=== PATIENT | female | born 2005 | race Caucasian/White ===

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

== ENCOUNTER → 2023-04-12 | Emergency (ER) | payer OTHER ==
--- OUTSIDE RECORDS SUMMARY | 2023-04-12 10:15 | XMS REPORT | Continuity of Care Document ---
Author Name Unknown Address [address] [facility] [address] [place] [address] [facility] thconnect Address [address] [facility]. [address] [place] [address] Care Team Providers Care Quill Winder Name Role Phone KAITLYNN BOX Primary Care Physician Unavaila ble Saldivar Marcy Attending Clinician Unavailable ZULMA ZARAGOZA Attending Clinician Unavailable ZULMA ZARAGOZA Attending Clinician Unavailable MARTHA LATIF Attending Clinician Unavailable Martha Latif MD Attending Clinician [phone] Doctor Unassigned, [place] Attending Clinician U navailable 2, [facility] Lab Attending Clinician Unavailable Zulma Zaragoza DO Attending Clinician [phone] Lauro Nola DUNN Attending Clinician [phone] Nurse, [facility] Attending Clinician Un available Juan Parrish MD Attending Clinician + Ultrasound, [facility] Attending Clinician Unavaila JUAN Rai Attending Clinician Unav ailable KUSUM DUNBAR Attending Clinician Unavailable Kusmu Dunbar MD Attending Clinician [phone] Nimesh Oliva MD Attending Clinician [phone] NIMESH OLIVA Attending Clinician Unavailable NIMESH OLIVA Attending Clinician Unavailable TRISTIN VALENTE Attending Clinician UnavailTristin Contreras MD Attending Clinician [phone] TULIO FERGUSON Attending Clinician Unavaila ayaan Ferguson ACNP, Tulio Attending Clinician + [phone] Watson Hull Attending Clinician UnavailBrittany Min Attending Clinician [phone] ARLINE HARRIS Attending Clinician Unavaila KIKI Culver Attending Clinician Unavailab Kiki Enrique DO Attending Clinician [phone] SWETHA ROD Attending Clinician Unavailshalonda Box CAREER SERVICES ASSISTANT, Kaitlynn Attending Clinician [phone] KAITLYNN BOX Attending Clinician Unavailable Esmer Beltran PA-C Attending Clinician [phone] Lauri CAREER SERVICES ASSISTANT, Lety Attending Clinician [phone] LETY NICHOLS Attending Clinician Unavailable Filiberto Neri DO Attending Clinician [phone] Kayla Park MD Attending Clinician + [phone] Provider, [facility] Attending Clinician Un available Ilan Fuller Attending Clinician [phone] ILAN VILLARREAL Attending Clinician Unavailable Lab, Adc Fam Pob I Attending Clinician Unavailab Radha Nagy Attending Clinician [phone] RADHA COPELAND Attending Clinician Unavailable MARTHA ALTIF Admitting Clinician Unavailable Marcy Saldivar Admitting Clinician Unavailable KUSUM DUNBAR Admitting Clinician Unavailable Martha Latif MD Admitting Clinician [phone] Kusum Dunbar MD Admitting Clinician [phone] Watson Hull Admitting Clinician UnavailKayla Vail MD Admitting Clinician + [phone] Payers Payer Name Policy Type Policy Number Effective Date Expirati on Date Source [facility] [id number] 2023 00:00:00 [facility] [id number] 2020 00:00:00 Problems Condition Name Condition Details Condition Category Status Onset Date Resolution Date Last Treatment Date Treating Clinician Comments Source Chronic hypertensi on during , antepartum Chronic hypertensi on during , antepartum Disease Active 2022-03 2-19 00:00: 00 [facility] 33 weeks gestation of 33 weeks gestation of Disease Active 2022-03 1-16 00:00: 00 [facility] Flu Flu Disease Active 2022-0316 00:00: 00 [facility] 35 weeks gestation of 35 weeks gestation of Disease Active 2022-03 00:00: 00 [facility] 38 weeks gestation of 38 weeks gestation of Disease Active 2022-03 00:00: 00 [facility] Anemia of mother in , antepartum Anemia of mother in , antepartum Disease Active 2022-03 1-09 00:00: 00 [facility] Low-lying placenta without hemorrhage Low-lying placenta without hemorrhage Disease Active 2022-03 0-06 00:00: 00 [facility] Elevated BP without diagnosis of hypertensi on Elevated BP without diagnosis of hypertensi on Disease Active 8-10 00:00: 00 [facility] Chronic hypertensi on in Chronic hypertensi on in Disease Active 8-10 00:00: 00 [facility] Genital herpes complicati ng Genital herpes complicati ng Disease Active 616 00:00: 00 [facility] High-risk in third trimester High-risk in third trimester Disease Active 16 00:00: 00 [facility] History of herpes labialis History of herpes labialis Disease Active 616 00:00: 00 [facility] Nausea and vomiting during prior to 22 weeks gestation Nausea and vomiting during prior to 22 weeks gestation Disease Active 616 00:00: 00 [facility] Body mass index (BMI) of 50-59.9 in adult Body mass index (BMI) of 50-59.9 in adult Disease Active 16 00:00: 00 [facility] Obesity in Obesity in Disease Active 08-29 00:00: 00 [facility] Morbid obesity with body mass index of 50 or higher Morbid obesity with body mass index of 50 or higher Disease Active 2021-03 00:00: 00 [facility] BMI, pediatric > 99% for age BMI, pediatric > 99% for age Disease Active 2020-03 00:00: 00 [facility] Weight gain Weight gain Disease Active 2020-03 00:00: 00 [facility] Allergies, Adverse Reactions, Alerts Allergy Name Allergy Type Status Severity Reaction(s) Onset Date Inactive Date Treating Clinician Comments Source No Known Allergie s DA Active U 2021-03 00:00: 00 [facility] No Known Allergie s DA Active U 2021-03 00:00: 00 [facility] NO KNOWN ALLERGIE S Drug Class Active [facility] Social History Social Habit Start Date Stop Date Quantity Comments Source ASSERTION 2022-06-24 00:00:[address] [facility] Gender identity [facility] Alcohol intake 2023-03-12 00:00:00 2023-03-12 00:00:00 Lifetime non-drinker (finding) [facility] History of Social function 2023-02-10 00:00:00 2023-02-10 00:00:[address] [facility] Exposure to SARS-CoV-2 (event) 2022-08-18 00:00:00 2022-08-28 13:21:[address] [facility] Tobacco use and exposure 2022-08-28 00:00:00 2022-08-28 00:00:00 Smokeless tobacco non-user [facility] Sex Assigned At 2003 00:00:00 2003 00:00:[address] [facility] Smoking Status Start Date Stop Date Source Never smoked tobacco [facility] Medications Ordered Medication Name Filled Medication Name Start Date Stop Date Current Medication? Ordering Clinician Indication Dosage Frequency Signature (SIG) Comments Components Source ibuprofen (IBU) tablet 600 mg 2022-03 06:00: 00 Yes 600mg 600 mg, Oral, Q6H ABX, First dose on Thu03/05/23 at 0000, Until Discontinu ed, Routine [facility] ibuprofen (IBU) tablet 600 mg 2022-03 06:00: 00 Yes 600mg 600 mg, Oral, Q6H ABX, First dose on Thu03/05/23 at 0000, Until Discontinu ed, Routine [facility] enoxaparin (LOVENOX) injection 40 mg 2022-03 16:00: 00 Yes 40mg 40 mg, Subcutaneo us, Q24H, First dose on Thu03/04/23 at 1000, Until Discontinu ed, Routine [facility] enoxaparin (LOVENOX) injection 40 mg 2022-03 16:00: 00 Yes 40mg 40 mg, Subcutaneo us, Q24H, First dose on Thu03/04/23 at 1000, Until Discontinu ed, Routine [facility] PNV no.95/shara us fum/folic ac ( ORAL) 2022-03 09:08: 03 03-04 00:00 :00 No Take by mouth. [facility] PNV no.95/shara us fum/folic ac ( ORAL) 2022-03 09:08: 03 03-04 00:00 :00 No Take by mouth. [facility] ketorolac (TORADOL) injection 30 mg 2022-03 06:00: 00 03-05 05:59 :00 Yes 30mg 30 mg, Slow IV Push, Q6H ABX, 4 doses, First dose on Thu03/04/23 at 0000, Last dose on Thu03/04/23 at 1800, Routine [facility] ketorolac (TORADOL) injection 30 mg 2022-03 06:00: 00 03-05 05:59 :00 Yes 30mg 30 mg, Slow IV Push, Q6H ABX, 4 doses, First dose on 12/20/23 at 0000, Last dose on Thu03/04/23 at 1800, Routine [facility] acetaminoph en 325 mg tablet 2022-03 00:00: 00 Yes [id number] 650mg Take 2 tablets by mouth every 6 (six) hours as needed for Pain (scale 1-3) or Pain (scale 4-6). [facility] vitamin w/FA tablet 2022-03 00:00: 00 Yes [id number] 1{tbl} Take 1 tablet by mouth in the morning. [facility] docusate 100 mg capsule 2022-03 00:00: 00 Yes [id number] 200mg Take 2 capsules by mouth once daily as needed for Constipati on. [facility] ferrous sulfate 325 mg (65 mg iron) tablet 2022-03 00:00: 00 Yes [id number] 325mg Take 1 tablet by mouth in the morning and 1 tablet in the evening. [facility] ibuprofen 600 mg tablet 2022-03 00:00: 00 Yes [id number] 600mg Take 1 tablet by mouth every 6 (six) hours as needed (Pain). Take with food or milk. [facility] acetaminoph en (TYLENOL) tablet 650 mg 2022-03 00:00: 00 Yes 650mg 650 mg, Oral, Q6H ABX, First dose on Thu03/03/23 at 1800, Until Discontinu ed, Routine [facility] acetaminoph en 325 mg tablet 2022-03 00:00: 00 Yes [id number] 650mg Take 2 tablets by mouth every 6 (six) hours as needed for Pain (scale 1-3) or Pain (scale 4-6). [facility] vitamin w/FA tablet 2022-03 00:00: 00 Yes [id number] 1{tbl} Take 1 tablet by mouth in the morning. [facility] docusate 100 mg capsule 2022-03 00:00: 00 Yes [id number] 200mg Take 2 capsules by mouth once daily as needed for Constipati on. [facility] ferrous sulfate 325 mg (65 mg iron) tablet 2022-03 00:00: 00 Yes [id number] 325mg Take 1 tablet by mouth in the morning and 1 tablet in the evening. [facility] ibuprofen 600 mg tablet 2022-03 00:00: 00 Yes [id number] 600mg Take 1 tablet by mouth every 6 (six) hours as needed (Pain). Take with food or milk. [facility] acetaminoph en (TYLENOL) tablet 650 mg 2022-03 00:00: 00 Yes 650mg 650 mg, Oral, Q6H ABX, First dose on Thu03/03/23 at 1800, Until Discontinu ed, Routine [facility] acetaminoph en 325 mg tablet 2022-03 00:00: 00 Yes [id number] 650mg Take 2 tablets by mouth every 6 (six) hours as needed for Pain (scale 1-3) or Pain (scale 4-6). [facility] vitamin w/FA tablet 2022-03 00:00: 00 Yes [id number] 1{tbl} Take 1 tablet by mouth in the morning. [facility] docusate 100 mg capsule 2022-03 00:00: 00 Yes [id number] 200mg Take 2 capsules by mouth once daily as needed for Constipati on. [facility] ferrous sulfate 325 mg (65 mg iron) tablet 2022-03 00:00: 00 Yes [id number] 325mg Take 1 tablet by mouth in the morning and 1 tablet in the evening. [facility] ibuprofen 600 mg tablet 2022-03 00:00: 00 Yes [id number] 600mg Take 1 tablet by mouth every 6 (six) hours as needed (Pain). Take with food or milk. [facility] acetaminoph en 325 mg tablet 2022-03 00:00: 00 Yes [id number] 650mg Take 2 tablets by mouth every 6 (six) hours as needed for Pain (scale 1-3) or Pain (scale 4-6). [facility] vitamin w/FA tablet 2022-03 00:00: 00 Yes [id number] 1{tbl} Take 1 tablet by mouth in the morning. [facility] docusate 100 mg capsule 2022-03 00:00: 00 Yes [id number] 200mg Take 2 capsules by mouth once daily as needed for Constipati on. [facility] ferrous sulfate 325 mg (65 mg iron) tablet 2022-03 00:00: 00 Yes [id number] 325mg Take 1 tablet by mouth in the morning and 1 tablet in the evening. [facility] ibuprofen 600 mg tablet 2022-03 00:00: 00 Yes [id number] 600mg Take 1 tablet by mouth every 6 (six) hours as needed (Pain). Take with food or milk. [facility] acetaminoph en 325 mg tablet 2022-03 00:00: 00 Yes [id number] 650mg Take 2 tablets by mouth every 6 (six) hours as needed for Pain (scale 1-3) or Pain (scale 4-6). [facility] vitamin w/FA tablet 2022-03 00:00: 00 Yes [id number] 1{tbl} Take 1 tablet by mouth in the morning. [facility] docusate 100 mg capsule 2022-03 00:00: 00 Yes [id number] 200mg Take 2 capsules by mouth once daily as needed for Constipati on. [facility] ferrous sulfate 325 mg (65 mg iron) tablet 2022-03 00:00: 00 Yes [id number] 325mg Take 1 tablet by mouth in the morning and 1 tablet in the evening. [facility] ibuprofen 600 mg tablet 2022-03 00:00: 00 Yes [id number] 600mg Take 1 tablet by mouth every 6 (six) hours as needed (Pain). Take with food or milk. [facility] enoxaparin 40 mg/0.4 mL injection 2022-03 00:00: 00 04-02 05:59 :00 Yes [id number] 40mg inject 0.4 mL under the skin every 24 (twenty-fo ur) hours for 28 days. [facility] enoxaparin 40 mg/0.4 mL injection 2022-03 2-20 00:00: 00 04-02 05:59 :00 Yes [id number] 40mg inject 0.4 mL under the skin every 24 (twenty-fo ur) hours for 28 days. [facility] enoxaparin 40 mg/0.4 mL injection 2022-03 2 00:00: 00 04-02 05:59 :00 Yes [id number] 40mg inject 0.4 mL under the skin every 24 (twenty-fo ur) hours for 28 days. [facility] enoxaparin 40 mg/0.4 mL injection 2022-03 00:00: 00 04-02 05:59 :00 Yes [id number] 40mg inject 0.4 mL under the skin every 24 (twenty-fo ur) hours for 28 days. [facility] enoxaparin 40 mg/0.4 mL injection 2022-03 00:00: 00 04-02 05:59 :00 Yes [id number] 40mg inject 0.4 mL under the skin every 24 (twenty-fo ur) hours for 28 days. [facility] HYDROcodone -acetaminop hen 5-325 mg tablet 2022-03 00:00: 00 03-12 05:59 :00 Yes [id number] 1{tbl} Take 1 tablet by mouth every 6 (six) hours as needed for Pain (scale 7-10) (Alternate with Ibuprofen) for up to 7 days. Indication s: acute pain [facility] HYDROcodone -acetaminop hen 5-325 mg tablet 2022-03 2-20 00:00: 00 03-12 05:59 :00 Yes [id number] 1{tbl} Take 1 tablet by mouth every 6 (six) hours as needed for Pain (scale 7-10) (Alternate with Ibuprofen) for up to 7 days. Indication s: acute pain [facility] HYDROcodone -acetaminop hen 5-325 mg tablet 2022-03 2-20 00:00: 00 03-12 05:59 :00 Yes [id number] 1{tbl} Take 1 tablet by mouth every 6 (six) hours as needed for Pain (scale 7-10) (Alternate with Ibuprofen) for up to 7 days. Indication s: acute pain [facility] gabapentin 300 mg capsule 2022-03 00:00: 00 03-10 05:59 :00 Yes [id number] 300mg Take 1 capsule by mouth in the morning and 1 capsule at noon and 1 capsule in the evening. Do all this for 5 days. [facility] gabapentin 300 mg capsule 2022-03 00:00: 00 03-10 05:59 :00 Yes [id number] 300mg Take 1 capsule by mouth in the morning and 1 capsule at noon and 1 capsule in the evening. Do all this for 5 days. [facility] gabapentin 300 mg capsule 2022-03 00:00: 00 03-10 05:59 :00 Yes [id number] 300mg Take 1 capsule by mouth in the morning and 1 capsule at noon and 1 capsule in the evening. Do all this for 5 days. [facility] gabapentin (NEURONTIN) capsule 300 mg 2022-03 20:00: 00 Yes 300mg 300 mg, Oral, TID, First dose on Thu03/03/23 at 1400, Until Discontinu ed, Routine [facility] gabapentin (NEURONTIN) capsule 300 mg 2022-03 20:00: 00 Yes 300mg 300 mg, Oral, TID, First dose on Thu03/03/23 at 1400, Until Discontinu ed, Routine [facility] lactated ringers IV infusion 1,000 mL 2022-03 16:00: 00 03-03 16:00 :25 No 1000mL at 125 mL/hr, 1,000 mL, IV Infusion, ONCE, 1 dose, On Thu03/03/23 at 1000, Routine [facility] HYDROcodone -acetaminop hen (NORCO 5) 5-325 mg tablet 1 tablet 2022-03 15:47: 18 Yes 1{tbl} 1 tablet, Oral, Q6HPRN, Starting on Thu03/03/23 at 0947, Until Discontinu ed, Routine, Pain (scale 7-10), Alternate with Ibuprofen [facility] diphenhydrA MINE (BENADRYL) injection 25 mg 2022-03 15:47: 18 Yes 25mg 25 mg, Slow IV Push, Q6HPRN, Starting on Thu03/03/23 at 0947, Until Discontinu ed, Routine, Itching [facility] diphenhydrA MINE (BENADRYL) tablet 25 mg 2022-03 15:47: 18 Yes 25mg 25 mg, Oral, Q6HPRN, Starting on Thu03/03/23 at 0947, Until Discontinu ed, Routine, Sleep, Itching [facility] ondansetron (ZOFRAN (PF)) injection 4 mg 2022-03 15:47: 18 Yes 4mg 4 mg, Slow IV Push, Q8HPRN, Starting on Thu03/03/23 at 0947, Until Discontinu ed, Routine, Nausea and Vomiting (N/V) [facility] bisacodyL (DULCOLAX) suppository 10 mg 2022-03 15:47: 18 Yes 10mg 10 mg, Rectal, QDAILYPRN, Starting on Thu03/03/23 at 0947, Until Discontinu ed, Routine, Constipati on [facility] simethicone (GAS RELIEF (SIMETHICON E)) chewable tablet 160 mg 2022-03 15:47: 18 Yes 160mg 160 mg, Oral, PC+HSPRN, Starting on Thu03/03/23 at 0947, Until Discontinu ed, Routine, Gas [facility] docusate (COLACE) capsule 200 mg 2022-03 15:47: 18 Yes 200mg 200 mg, Oral, QDAILYPRN, Starting on Thu03/03/23 at 0947, Until Discontinu ed, Routine, Constipati on [facility] magnesium hydroxide (MILK OF MAGNESIA) 400 mg/5 mL suspension 30 mL 2022-03 15:47: 18 Yes 30mL 30 mL, Oral, QDAILYPRN, Starting on Thu03/03/23 at 0947, Until Discontinu ed, Routine, Constipati on [facility] lactated ringers IV infusion 1,000 mL 2022-03 15:47: 18 Yes 1000mL at 125 mL/hr, 1,000 mL, IV Infusion, PRN, 1 dose, Starting on Thu03/03/23 at 0947, Until Discontinu ed, Routine [facility] albuterol (VENTOLIN) inhaler 2 Puff 2022-03 15:47: 18 Yes 2{puff} 2 Puff, Inhalation , Q4HPRN, Starting on Thu03/03/23 at 0947, Until Discontinu ed, Routine, Wheezing, Shortness of Breath [facility] HYDROcodone -acetaminop hen (NORCO 5) 5-325 mg tablet 1 tablet 2022-03 15:47: 18 Yes 1{tbl} 1 tablet, Oral, Q6HPRN, Starting on Thu03/03/23 at 0947, Until Discontinu ed, Routine, Pain (scale 7-10), Alternate with Ibuprofen [facility] diphenhydrA MINE (BENADRYL) injection 25 mg 2022-03 15:47: 18 Yes 25mg 25 mg, Slow IV Push, Q6HPRN, Starting on Thu03/03/23 at 0947, Until Discontinu ed, Routine, Itching [facility] diphenhydrA MINE (BENADRYL) tablet 25 mg 2022-03 15:47: 18 Yes 25mg 25 mg, Oral, Q6HPRN, Starting on Thu03/03/23 at 0947, Until Discontinu ed, Routine, Sleep, Itching [facility] ondansetron (ZOFRAN (PF)) injection 4 mg 2022-03 15:47: 18 Yes 4mg 4 mg, Slow IV Push, Q8HPRN, Starting on Thu03/03/23 at 0947, Until Discontinu ed, Routine, Nausea and Vomiting (N/V) [facility] bisacodyL (DULCOLAX) suppository 10 mg 2022-03 15:47: 18 Yes 10mg 10 mg, Rectal, QDAILYPRN, Starting on Thu03/03/23 at 0947, Until Discontinu ed, Routine, Constipati on [facility] simethicone (GAS RELIEF (SIMETHICON E)) chewable tablet 160 mg 2022-03 15:47: 18 Yes 160mg 160 mg, Oral, PC+HSPRN, Starting on Thu03/03/23 at 0947, Until Discontinu ed, Routine, Gas [facility] docusate (COLACE) capsule 200 mg 2022-03 15:47: 18 Yes 200mg 200 mg, Oral, QDAILYPRN, Starting on Thu03/03/23 at 0947, Until Discontinu ed, Routine, Constipati on [facility] magnesium hydroxide (MILK OF MAGNESIA) 400 mg/5 mL suspension 30 mL 2022-03 15:47: 18 Yes 30mL 30 mL, Oral, QDAILYPRN, Starting on Thu03/03/23 at 0947, Until Discontinu ed, Routine, Constipati on [facility] lactated ringers IV infusion 1,000 mL 2022-03 15:47: 18 Yes 1000mL at 125 mL/hr, 1,000 mL, IV Infusion, PRN, 1 dose, Starting on Thu03/03/23 at 0947, Until Discontinu ed, Routine [facility] albuterol (VENTOLIN) inhaler 2 Puff 2022-03 15:47: 18 Yes 2{puff} 2 Puff, Inhalation , Q4HPRN, Starting on Thu03/03/23 at 0947, Until Discontinu ed, Routine, Wheezing, Shortness of Breath [facility] mupirocin (BACTROBAN OINT) 2 % skin ointment 2022-03 15:40: 00 Yes Intra-op [facility] mupirocin (BACTROBAN OINT) 2 % skin ointment 2022-03 15:40: 00 Yes Intra-op [facility] sodium chloride 0.9 % irrigation solution 2022-03 15:06: 00 Yes PRN, Starting on Thu03/03/23 at 0906, Until Discontinu ed, Intra-op [facility] sodium chloride 0.9 % irrigation solution 2022-03 15:06: 00 Yes PRN, Starting on Thu03/03/23 at 0906, Until Discontinu ed, Intra-op [facility] ondansetron (ZOFRAN (PF)) injection 4 mg 2022-03 15:00: 00 03-03 15:49 :00 No 4mg 4 mg, Slow IV Push, ONCE, 1 dose, On Thu03/03/23 at 0900, Routine [facility] naloxone (NARCAN) injection 0.4 mg 2022-03 14:52: 54 03-05 14:51 :54 Yes .4mg 0.4 mg, Slow IV Push, PRN - SEE INSTRUCTIO NS, Starting on Thu03/03/23 at 0852, Until Thu03/05/23 at 0851, Routine, Sedation/R espiratory Depression , Analagesia Recovery [facility] naloxone (NARCAN) injection 0.4 mg 2022-03 14:52: 54 03-05 14:51 :54 Yes .4mg 0.4 mg, Slow IV Push, PRN - SEE INSTRUCTIO NS, Starting on Thu03/03/23 at 0852, Until Thu03/05/23 at 0851, Routine, Sedation/R espiratory Depression , [facility] ceFAZolin in 0.9% sod chloride 3 gram/100 mL PgBk 3 g 2022-03 11:07: 36 03-03 13:18 :00 No 3000mg 3 g (3,000 mg), IV Piggyback, O.R. HOLDING ONCE, 1 dose, Starting on Thu03/03/23 at 0507, Until Thu03/04/23 at 2359, 100 mL
Reas on for Anti-Infec tive: Surgical Prophylaxi s
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
Duration of therapy: within 24 hours of surgery [facility] sodium citrate-cit ky acid (BICITRA) 500-334 mg/5 mL solution 30 mL 2022-03 11:07: 36 03-03 13:16 :00 No 30mL 30 mL, Oral, PRE-PROCED URE ONCE, 1 dose, Starting on Thu03/03/23 at 0507, Until Discontinu ed, Routine, Surgery/Pr ocedure [facility] lactated ringers IV infusion 500 mL 2022-03 11:07: 36 03-03 15:47 :24 No 500mL at 999 mL/hr, 500 mL, IV Infusion, PRN - SEE INSTRUCTIO NS, Starting on Thu03/03/23 at 0507, Until Thu03/03/23 at 0947, Routine [facility] PNV no.95/shara us fum/folic ac ( ORAL) 2022-03 15:41: 41 Yes Take by mouth. [facility] PNV no.95/shara us fum/folic ac ( ORAL) 2022-03 15:41: 41 Yes Take by mouth. [facility] albuterol (PROAIR HFA) 90 mcg/actuati on inhaler 2022-03 00:00: 00 Yes 2{puff} Inhale 2 Puffs every 4 (four) hours as needed for Wheezing or Shortness of Breath. [facility] albuterol (PROAIR HFA) 90 mcg/actuati on inhaler 2022-03 00:00: 00 Yes 2{puff} Inhale 2 Puffs every 4 (four) hours as needed for Wheezing or Shortness of Breath. [facility] albuterol (PROAIR HFA) 90 mcg/actuati on inhaler 2022-03 00:00: 00 Yes 2{puff} Inhale 2 Puffs every 4 (four) hours as needed for Wheezing or Shortness of Breath. [facility] albuterol (PROAIR HFA) 90 mcg/actuati on inhaler 2022-03 00:00: 00 Yes 2{puff} Inhale 2 Puffs every 4 (four) hours as needed for Wheezing or Shortness of Breath. [facility] albuterol (PROAIR HFA) 90 mcg/actuati on inhaler 2022-03 00:00: 00 Yes 2{puff} Inhale 2 Puffs every 4 (four) hours as needed for Wheezing or Shortness of Breath. [facility] albuterol (PROAIR HFA) 90 mcg/actuati on inhaler 2022-03 00:00: 00 Yes 2{puff} Inhale 2 Puffs every 4 (four) hours as needed for Wheezing or Shortness of Breath. [facility] albuterol (PROAIR HFA) 90 mcg/actuati on inhaler 2022-03 00:00: 00 Yes 2{puff} Inhale 2 Puffs every 4 (four) hours as needed for Wheezing or Shortness of Breath. [facility] albuterol (PROAIR HFA) 90 mcg/actuati on inhaler 2022-03 00:00: 00 Yes 2{puff} Inhale 2 Puffs every 4 (four) hours as needed for Wheezing or Shortness of Breath. [facility] PNV no.95/shara us fum/folic ac ( ORAL) 2022-03 18:13: 52 Yes Take by mouth. [facility] PNV no.95/shara us fum/folic ac ( ORAL) 2022-03 18:13: 52 Yes Take by mouth. [facility] PNV no.95/shara us fum/folic ac ( ORAL) 2022-03 16:09: 57 Yes Take by mouth. [facility] fluticasone propionate (FLOVENT HFA) 110 mcg/actuati on inhaler 2022-03 00:00: 00 Yes [id number] 2{puff} Inhale 2 Puffs every 12 (twelve) hours. [facility] fluticasone propionate (FLOVENT HFA) 110 mcg/actuati on inhaler 2022-03 00:00: 00 Yes [id number] 2{puff} Inhale 2 Puffs every 12 (twelve) hours. [facility]FLOVENT HFA[facility] 110 mcg/actuati on inhaler 2022-03 00:00: 00 Yes [id number] 2{puff} Inhale 2 Puffs every 12 (twelve) hours. [facility] nystatin 100,000 unit/gram powder 2022-03 00:00: 00 Yes [id number] Apply to area(s) 2 (two) times daily. [facility] (FLOVENT HFA) 110 mcg/actuati on inhaler 2022-03 00:00: 00 Yes [id number] 2{puff} Inhale 2 Puffs every 12 (twelve) hours. [facility] nystatin 100,000 unit/gram powder 2022-03 00:00: 00 Yes [id number] Apply to area(s) 2 (two) times daily. [facility] fluticasone propionate (FLOVENT HFA) 110 mcg/actuati on inhaler 2022-03 00:00: 00 Yes [id number] 2{puff} Inhale 2 Puffs every 12 (twelve) hours. [facility] nystatin 100,000 unit/gram powder 2022-03 00:00: 00 Yes [id number] Apply to area(s) 2 (two) times daily. [facility] fluticasone propionate (FLOVENT HFA) 110 mcg/actuati on inhaler 2022-03 00:00: 00 Yes [id number] 2{puff} Inhale 2 Puffs every 12 (twelve) hours. [facility] nystatin 100,000 unit/gram powder 2022-03 00:00: 00 Yes [id number] Apply to area(s) 2 (two) times daily. [facility] fluticasone propionate (FLOVENT HFA) 110 mcg/actuati on inhaler 2022-03 00:00: 00 Yes [id number] 2{puff} Inhale 2 Puffs every 12 (twelve) hours. [facility] nystatin 100,000 unit/gram powder 2022-03 00:00: 00 Yes [id number] Apply to area(s) 2 (two) times daily. [facility] fluticasone propionate (FLOVENT HFA) 110 mcg/actuati on inhaler 2022-03 00:00: 00 Yes [id number] 2{puff} Inhale 2 Puffs every 12 (twelve) hours. [facility] nystatin 100,000 unit/gram powder 2022-03 00:00: 00 Yes [id number] Apply to area(s) 2 (two) times daily. [facility] nystatin 100,000 unit/gram powder 2022-03 00:00: 00 Yes [id number] Apply to area(s) 2 (two) times daily. [facility] nystatin 100,000 unit/gram powder 2022-03 00:00: 00 Yes [id number] Apply to area(s) 2 (two) times daily. [facility] nystatin 100,000 unit/gram powder 2022-03 00:00: 00 Yes [id number] Apply to area(s) 2 (two) times daily. [facility] nystatin 100,000 unit/gram powder 2022-03 00:00: 00 Yes [id number] Apply to area(s) 2 (two) times daily. [facility] nystatin 100,000 unit/gram powder 2022-03 00:00: 00 Yes [id number] Apply to area(s) 2 (two) times daily. [facility] nystatin 100,000 unit/gram powder 2022-03 00:00: 00 Yes [id number] Apply to area(s) 2 (two) times daily. [facility] nystatin 100,000 unit/gram powder 2022-03 00:00: 00 Yes [id number] Apply to area(s) 2 (two) times daily. [facility] acyclovir 400 mg tablet 2022-03 00:00: 00 03-13 05:59 :00 Yes [id number] 400mg Take 1 tablet by mouth in the morning and 1 tablet at noon and 1 tablet in the evening. Do all this for 30 days. [facility] acyclovir 400 mg tablet 2022-03 00:00: 00 03-13 05:59 :00 Yes [id number] 400mg Take 1 tablet by mouth in the morning and 1 tablet at noon and 1 tablet in the evening. Do all this for 30 days. [facility] acyclovir 400 mg tablet 2022-03 00:00: 00 03-13 05:59 :00 Yes [id number] 400mg Take 1 tablet by mouth in the morning and 1 tablet at noon and 1 tablet in the evening. Do all this for 30 days. [facility] acyclovir 400 mg tablet 2022-03 00:00: 00 03-13 05:59 :00 Yes [id number] 400mg Take 1 tablet by mouth in the morning and 1 tablet at noon and 1 tablet in the evening. Do all this for 30 days. [facility] acyclovir 400 mg tablet 2022-03 00:00: 00 03-13 05:59 :00 Yes [id number] 400mg Take 1 tablet by mouth in the morning and 1 tablet at noon and 1 tablet in the evening. Do all this for 30 days. [facility] acyclovir 400 mg tablet 2022-03 00:00: 00 03-13 05:59 :00 Yes [id number] 400mg Take 1 tablet by mouth in the morning and 1 tablet at noon and 1 tablet in the evening. Do all this for 30 days. [facility] acyclovir 400 mg tablet 2022-03 00:00: 00 03-13 05:59 :00 Yes [id number] 400mg Take 1 tablet by mouth in the morning and 1 tablet at noon and 1 tablet in the evening. Do all this for 30 days. [facility] acyclovir 400 mg tablet 2022-03 00:00: 00 03-13 05:59 :00 Yes [id number] 400mg Take 1 tablet by mouth in the morning and 1 tablet at noon and 1 tablet in the evening. Do all this for 30 days. [facility] acyclovir 400 mg tablet 2022-03 00:00: 00 03-04 00:00 :00 No [id number] 400mg Take 1 tablet by mouth in the morning and 1 tablet at noon and 1 tablet in the evening. Do all this for 30 days. [facility] acyclovir 400 mg tablet 2022-03 00:00: 00 03-04 00:00 :00 No [id number] 400mg Take 1 tablet by mouth in the morning and 1 tablet at noon and 1 tablet in the evening. Do all this for 30 days. [facility] fluticasone propionate (FLOVENT HFA) 110 mcg/actuati on inhaler 2022-03 00:00: 00 03-02 00:00 :00 No [id number] 2{puff} Inhale 2 Puffs every 12 (twelve) hours. [facility] fluticasone propionate (FLOVENT HFA) 110 mcg/actuati on inhaler 2022-03 00:00: 00 03-02 00:00 :00 No [id number] 2{puff} Inhale 2 Puffs every 12 (twelve) hours. [facility] dextrometho lamar-fosterf enesin (ROBITUSSIN DM) 10-100 mg/5 mL solution 5 mL 2022-03 16:25: 58 Yes 5mL 5 mL, Oral, Q6HPRN, Starting on Thu01/30/23 at 1025, Until Discontinu ed, Routine, Cough [facility] PNV no.95/shara us fum/folic ac ( ORAL) 2022-03 15:52: 23 Yes Take by mouth. [facility] PNV no.95/shara us fum/folic ac ( ORAL) 2022-03 15:52: 23 Yes Take by mouth. [facility] PNV no.95/shara us fum/folic ac ( ORAL) 2022-03 15:52: 23 Yes Take by mouth. [facility] PNV no.95/shara us fum/folic ac ( ORAL) 2022-03 15:52: 23 Yes Take by mouth. [facility] PNV no.95/shara us fum/folic ac ( ORAL) 2022-03 15:52: 23 Yes Take by mouth. [facility] PNV no.95/shara us fum/folic ac ( ORAL) 2022-03 15:52: 23 Yes Take by mouth. [facility] phenoL (SORE THROAT (PHENOL)) 1.4 % spray bottle 1 [place] 2022-03 11:14: 43 Yes 1{spray } 1 [place], Oral, PRN, Starting on Thu01/30/23 at 0514, Until Discontinu ed, Routine, Sore throat [facility] D5W-LR IV infusion 1,000 mL 2022-03 04:30: 00 Yes 1000mL at 125 mL/hr, IV Infusion, CONTINUOUS , Starting on Thu01/29/23 at 2230, Until Discontinu ed, Routine [facility] metoclopram nicolas HCl (REGLAN) injection 10 mg 2022-03 04:11: 13 Yes 10mg 10 mg, Slow IV Push, Q6HPRN, Starting on Thu01/29/23 at 2211, Until Discontinu ed, Routine, Nausea and Vomiting (N/V) [facility] acetaminoph en (TYLENOL) tablet 650 mg 2022-03 04:00: 10 Yes 650mg 650 mg, Oral, Q6HPRN, Starting on Thu01/29/23 at 2200, Until Discontinu ed, Routine, Pain (scale 1-3), Pain (scale 4-6), Temp > 38 C, Fever [facility] NaCl 0.9% (NS) bolus infusion 1,000 mL 2022-03 03:00: 00 01-30 02:19 :00 No 1000mL at 999 mL/hr, 1,000 mL, IV Infusion, ONCE, 1 dose, On Thu01/29/23 at 2100, STAT [facility] oseltamivir (TAMIFLU) capsule 75 mg 2022-03 02:30: 00 02-02 01:59 :00 Yes 75mg 75 mg, Oral, BID, 6 doses, First dose on Beth 01/29/23 at 2030, Last dose on 02/01/23 at 0800, Routine [facility] dextrometho rphan-guaif enesin 10-100 mg/5 mL solution 2022-03 00:00: 00 Yes [id number] 5mL Take 5 mL by mouth every 6 (six) hours as needed for Cough. [facility] dextrometho rphan-guaif enesin 10-100 mg/5 mL solution 2022-03 00:00: 00 Yes [id number] 5mL Take 5 mL by mouth every 6 (six) hours as needed for Cough. [facility] dextrometho rphan-guaif enesin 10-100 mg/5 mL solution 2022-03 00:00: 00 Yes [id number] 5mL Take 5 mL by mouth every 6 (six) hours as needed for Cough. [facility] dextrometho rphan-guaif enesin 10-100 mg/5 mL solution 2022-03 00:00: 00 Yes [id number] 5mL Take 5 mL by mouth every 6 (six) hours as needed for Cough. [facility] dextrometho rphan-guaif enesin 10-100 mg/5 mL solution 2022-03 00:00: 00 Yes [id number] 5mL Take 5 mL by mouth every 6 (six) hours as needed for Cough. [facility] dextrometho rphan-guaif enesin 10-100 mg/5 mL solution 2022-03 00:00: 00 Yes [id number] 5mL Take 5 mL by mouth every 6 (six) hours as needed for Cough. [facility] dextrometho rphan-guaif enesin 10-100 mg/5 mL solution 2022-03 00:00: 00 02-24 00:00 :00 No [id number] 5mL Take 5 mL by mouth every 6 (six) hours as needed for Cough. [facility] oseltamivir 75 mg capsule 2022-03 00:00: 00 02-04 05:59 :00 Yes [id number] 75mg Take 1 capsule by mouth in the morning and 1 capsule in the evening. Do all this for 4 days. [facility] NaCl 0.9% (NS) bolus infusion 1,000 mL 2022-03 23:15: 00 01-30 00:55 :00 No 1000mL at 999 mL/hr, 1,000 mL, IV Infusion, ONCE, 1 dose, On Beth 01/29/23 at 1715, STAT [facility] acetaminoph en (TYLENOL) tablet 1,000 mg 2022-03 22:15: 00 01-29 22:22 :00 No 1000mg 1,000 mg, Oral, ONCE, 1 dose, On [facility] 01/29/23 at 1615, Routine [facility] PNV no.95/shara us fum/folic ac ( ORAL) 2022-03 13:49: 56 Yes Take by mouth. [facility] ferrous sulfate (IRON, FERROUS SULFATE,) 325 mg (65 mg iron) tablet 2022-03 00:00: 00 Yes [id number] 325mg Take 1 tablet by mouth in the morning and 1 tablet in the evening. [facility] ferrous sulfate (IRON, FERROUS SULFATE,) 325 mg (65 mg iron) tablet 2022-03 00:00: 00 Yes [id number] 325mg Take 1 tablet by mouth in the morning and 1 tablet in the evening. [facility] ferrous sulfate (IRON, FERROUS SULFATE,) 325 mg (65 mg iron) tablet 2022-03 00:00: 00 Yes [id number] 325mg Take 1 tablet by mouth in the morning and 1 tablet in the evening. [facility] ferrous sulfate (IRON, FERROUS SULFATE,) 325 mg (65 mg iron) tablet 2022-03 00:00: 00 Yes [id number] 325mg Take 1 tablet by mouth in the morning and 1 tablet in the evening. [facility] ferrous sulfate (IRON, FERROUS SULFATE,) 325 mg (65 mg iron) tablet 2022-03 00:00: 00 Yes [id number] 325mg Take 1 tablet by mouth in the morning and 1 tablet in the evening. [facility] ferrous sulfate (IRON, FERROUS SULFATE,) 325 mg (65 mg iron) tablet 2022-03 00:00: 00 Yes [id number] 325mg Take 1 tablet by mouth in the morning and 1 tablet in the evening. [facility] ferrous sulfate (IRON, FERROUS SULFATE,) 325 mg (65 mg iron) tablet 2022-03 00:00: 00 Yes [id number] 325mg Take 1 tablet by mouth in the morning and 1 tablet in the evening. [facility] ferrous sulfate (IRON, FERROUS SULFATE,) 325 mg (65 mg iron) tablet 2022-03 00:00: 00 Yes [id number] 325mg Take 1 tablet by mouth in the morning and 1 tablet in the evening. [facility] ferrous sulfate (IRON, FERROUS SULFATE,) 325 mg (65 mg iron) tablet 2022-03 00:00: 00 Yes [id number] 325mg Take 1 tablet by mouth in the morning and 1 tablet in the evening. [facility] ferrous sulfate (IRON, FERROUS SULFATE,) 325 mg (65 mg iron) tablet 2022-03 00:00: 00 Yes [id number] 325mg Take 1 tablet by mouth in the morning and 1 tablet in the evening. [facility] ferrous sulfate (IRON, FERROUS SULFATE,) 325 mg (65 mg iron) tablet 2022-03 00:00: 00 Yes [id number] 325mg Take 1 tablet by mouth in the morning and 1 tablet in the evening. [facility] ferrous sulfate (IRON, FERROUS SULFATE,) 325 mg (65 mg iron) tablet 2022-03 00:00: 00 Yes [id number] 325mg Take 1 tablet by mouth in the morning and 1 tablet in the evening. [facility] ferrous sulfate (IRON, FERROUS SULFATE,) 325 mg (65 mg iron) tablet 2022-03 00:00: 00 Yes [id number] 325mg Take 1 tablet by mouth in the morning and 1 tablet in the evening. [facility] ferrous sulfate (IRON, FERROUS SULFATE,) 325 mg (65 mg iron) tablet 2022-03 00:00: 00 Yes [id number] 325mg Take 1 tablet by mouth in the morning and 1 tablet in the evening. [facility] ferrous sulfate (IRON, FERROUS SULFATE,) 325 mg (65 mg iron) tablet 2022-03 00:00: 00 Yes [id number] 325mg Take 1 tablet by mouth in the morning and 1 tablet in the evening. [facility] ferrous sulfate (IRON, FERROUS SULFATE,) 325 mg (65 mg iron) tablet 2022-03 00:00: 00 Yes [id number] 325mg Take 1 tablet by mouth in the morning and 1 tablet in the evening. [facility] ferrous sulfate (IRON, FERROUS SULFATE,) 325 mg (65 mg iron) tablet 2022-03 00:00: 00 03-04 00:00 :00 No [id number] 325mg Take 1 tablet by mouth in the morning and 1 tablet in the evening. [facility] ferrous sulfate (IRON, FERROUS SULFATE,) 325 mg (65 mg iron) tablet 2022-03 00:00: 00 03-04 00:00 :00 No [id number] 325mg Take 1 tablet by mouth in the morning and 1 tablet in the evening. [facility] PNV no.95/shara us fum/folic ac ( ORAL) 2022-03 15:18: 47 Yes Take by mouth. [facility] PNV no.95/shara us fum/folic ac ( ORAL) 2022-03 15:18: 47 Yes Take by mouth. [facility] PNV no.95/shara us fum/folic ac ( ORAL) 2022-03 15:18: 47 Yes Take by mouth. [facility] PNV no.95/shara us fum/folic ac ( ORAL) 2022-03 15:18: 47 Yes Take by mouth. [facility] PNV no.95/shara us fum/folic ac ( ORAL) 2022-03 15:18: 47 Yes Take by mouth. [facility] PNV no.95/shara us fum/folic ac ( ORAL) 2022-03 15:18: 47 Yes Take by mouth. [facility] fluconazole (DIFLUCAN) 200 mg tablet 2022-03 00:00: 00 Yes [id number] 200mg Take 1 tablet by mouth in the morning. [facility] fluconazole (DIFLUCAN) 200 mg tablet 2022-03 00:00: 00 Yes [id number] 200mg Take 1 tablet by mouth in the morning. [facility] fluconazole (DIFLUCAN) 200 mg tablet 2022-03 00:00: 00 Yes [id number] 200mg Take 1 tablet by mouth in the morning. [facility] fluconazole (DIFLUCAN) 200 mg tablet 2022-03 00:00: 00 Yes [id number] 200mg Take 1 tablet by mouth in the morning. [facility] fluconazole (DIFLUCAN) 200 mg tablet 2022-03 00:00: 00 Yes [id number] 200mg Take 1 tablet by mouth in the morning. [facility] fluconazole (DIFLUCAN) 200 mg tablet 2022-03 00:00: 00 Yes [id number] 200mg Take 1 tablet by mouth in the morning. [facility] fluconazole (DIFLUCAN) 200 mg tablet 2022-03 00:00: 00 Yes [id number] 200mg Take 1 tablet by mouth in the morning. [facility] fluconazole (DIFLUCAN) 200 mg tablet 2022-03 00:00: 00 Yes [id number] 200mg Take 1 tablet by mouth in the morning. [facility] fluconazole (DIFLUCAN) 200 mg tablet 2022-03 00:00: 00 01-29 00:00 :00 No [id number] 200mg Take 1 tablet by mouth in the morning. [facility] albuterol (PROAIR HFA) 90 mcg/actuati on inhaler 2023-1 0-16 00:00: 00 Yes 2{puff} Inhale 2 Puffs every 4 (four) hours as needed for Wheezing or Shortness of Breath. [facility] albuterol (PROAIR HFA) 90 mcg/actuati on inhaler 2022-03 0-16 00:00: 00 Yes 2{puff} Inhale 2 Puffs every 4 (four) hours as needed for Wheezing or Shortness of Breath. [facility] albuterol (PROAIR HFA) 90 mcg/actuati on inhaler 2022-03 0-16 00:00: 00 Yes 2{puff} Inhale 2 Puffs every 4 (four) hours as needed for Wheezing or Shortness of Breath. [facility] albuterol (PROAIR HFA) 90 mcg/actuati on inhaler 2022-03 0-16 00:00: 00 Yes 2{puff} Inhale 2 Puffs every 4 (four) hours as needed for Wheezing or Shortness of Breath. [facility] albuterol (PROAIR HFA) 90 mcg/actuati on inhaler 2022-03 0-16 00:00: 00 Yes 2{puff} Inhale 2 Puffs every 4 (four) hours as needed for Wheezing or Shortness of Breath. [facility] albuterol (PROAIR HFA) 90 mcg/actuati on inhaler 2022-03 0-16 00:00: 00 Yes 2{puff} Inhale 2 Puffs every 4 (four) hours as needed for Wheezing or Shortness of Breath. [facility] albuterol (PROAIR HFA) 90 mcg/actuati on inhaler 2022-03 0-16 00:00: 00 Yes 2{puff} Inhale 2 Puffs every 4 (four) hours as needed for Wheezing or Shortness of Breath. [facility] albuterol (PROAIR HFA) 90 mcg/actuati on inhaler 2022-03 0-16 00:00: 00 Yes 2{puff} Inhale 2 Puffs every 4 (four) hours as needed for Wheezing or Shortness of Breath. [facility] albuterol (PROAIR HFA) 90 mcg/actuati on inhaler 2022-03 0-16 00:00: 00 Yes 2{puff} Inhale 2 Puffs every 4 (four) hours as needed for Wheezing or Shortness of Breath. [facility] albuterol (PROAIR HFA) 90 mcg/actuati on inhaler 2022-03 0-16 00:00: 00 Yes 2{puff} Inhale 2 Puffs every 4 (four) hours as needed for Wheezing or Shortness of Breath. [facility] albuterol (PROAIR HFA) 90 mcg/actuati on inhaler 2022-03 0-16 00:00: 00 Yes 2{puff} Inhale 2 Puffs every 4 (four) hours as needed for Wheezing or Shortness of Breath. [facility] albuterol (PROAIR HFA) 90 mcg/actuati on inhaler 2022-03 0-16 00:00: 00 Yes 2{puff} Inhale 2 Puffs every 4 (four) hours as needed for Wheezing or Shortness of Breath. [facility] albuterol (PROAIR HFA) 90 mcg/actuati on inhaler 2022-03 0-16 00:00: 00 Yes 2{puff} Inhale 2 Puffs every 4 (four) hours as needed for Wheezing or Shortness of Breath. [facility] albuterol (PROAIR HFA) 90 mcg/actuati on inhaler 2022-03 0-16 00:00: 00 Yes 2{puff} Inhale 2 Puffs every 4 (four) hours as needed for Wheezing or Shortness of Breath. [facility] albuterol (PROAIR HFA) 90 mcg/actuati on inhaler 2022-03 0-16 00:00: 00 Yes 2{puff} Inhale 2 Puffs every 4 (four) hours as needed for Wheezing or Shortness of Breath. [facility] albuterol (PROAIR HFA) 90 mcg/actuati on inhaler 2022-03 0-16 00:00: 00 Yes 2{puff} Inhale 2 Puffs every 4 (four) hours as needed for Wheezing or Shortness of Breath. [facility] albuterol (PROAIR HFA) 90 mcg/actuati on inhaler 2022-03 0-16 00:00: 00 Yes 2{puff} Inhale 2 Puffs every 4 (four) hours as needed for Wheezing or Shortness of Breath. [facility] albuterol (PROAIR HFA) 90 mcg/actuati on inhaler 2022-03 0-16 00:00: 00 Yes 2{puff} Inhale 2 Puffs every 4 (four) hours as needed for Wheezing or Shortness of Breath. [facility] albuterol (PROAIR HFA) 90 mcg/actuati on inhaler 2022-03 0-16 00:00: 00 02-25 00:00 :00 No 2{puff} Inhale 2 Puffs every 4 (four) hours as needed for Wheezing or Shortness of Breath. [facility] albuterol (PROAIR HFA) 90 mcg/actuati on inhaler 9-11 00:00: 00 Yes 2{puff} Inhale 2 Puffs every 4 (four) hours as needed for Wheezing or Shortness of Breath. [facility] albuterol (PROAIR HFA) 90 mcg/actuati on inhaler 9-11 00:00: 00 Yes 2{puff} Inhale 2 Puffs every 4 (four) hours as needed for Wheezing or Shortness of Breath. [facility] albuterol (PROAIR HFA) 90 mcg/actuati on inhaler 9-11 00:00: 00 Yes 2{puff} Inhale 2 Puffs every 4 (four) hours as needed for Wheezing or Shortness of Breath. [facility] albuterol (PROAIR HFA) 90 mcg/actuati on inhaler 9-11 00:00: 00 15 00:00 :00 No 2{puff} Inhale 2 Puffs every 4 (four) hours as needed for Wheezing or Shortness of Breath. [facility] albuterol (PROAIR HFA) 90 mcg/actuati on inhaler 8-10 00:00: 00 Yes 2{puff} Inhale 2 Puffs every 4 (four) hours as needed for Wheezing or Shortness of Breath. [facility] albuterol (PROAIR HFA) 90 mcg/actuati on inhaler 10 00:00: 00 Yes 2{puff} Inhale 2 Puffs every 4 (four) hours as needed for Wheezing or Shortness of Breath. [facility] albuterol (PROAIR HFA) 90 mcg/actuati on inhaler 10-23 00:00: 00 11-24 00:00 :00 No 2{puff} Inhale 2 Puffs every 4 (four) hours as needed for Wheezing or Shortness of Breath. [facility] NaCl 0.9% (NS) bolus infusion 1,000 mL 09-20 05:15: 00 09-20 06:19 :00 No 1000mL at 999 mL/hr, 1,000 mL, IV Infusion, ONCE, 1 dose, On Thu09/20/22 at 0015, [facility] famotidine (PEPCID (PF)) injection 20 mg 09-20 04:30: 00 09-20 04:49 :00 No 20mg 20 mg, Slow IV Push, ONCE, 1 dose, On Thu09/19/22 at 2330, [facility] ondansetron (ZOFRAN (PF)) injection 8 mg 09-20 04:30: 00 09-20 04:49 :00 No 8mg 8 mg, Slow IV Push, ONCE, 1 dose, On Thu09/19/22 at 2330, [facility] ondansetron 4 mg tablet 09-19 00:00: 00 Yes [id number] 1-2 tablets every 8 hours as needed for nausea [facility] ondansetron 4 mg tablet 09-19 00:00: 00 Yes [id number] 1-2 tablets every 8 hours as needed for nausea [facility] ondansetron 4 mg tablet 09-19 00:00: 00 Yes [id number] 1-2 tablets every 8 hours as needed for nausea [facility] ondansetron 4 mg tablet 09-19 00:00: 00 Yes [id number] 1-2 tablets every 8 hours as needed for nausea [facility] ondansetron 4 mg tablet 09-19 00:00: 00 Yes [id number] 1-2 tablets every 8 hours as needed for nausea [facility] ondansetron 4 mg tablet 09-19 00:00: 00 Yes [id number] 1-2 tablets every 8 hours as needed for nausea [facility] ondansetron 4 mg tablet 09-19 00:00: 00 Yes [id number] 1-2 tablets every 8 hours as needed for nausea [facility] ondansetron 4 mg tablet 09-19 00:00: 00 Yes [id number] 1-2 tablets every 8 hours as needed for nausea [facility] ondansetron 4 mg tablet 09-19 00:00: 00 Yes [id number] 1-2 tablets every 8 hours as needed for nausea [facility] ondansetron 4 mg tablet 09-19 00:00: 00 Yes [id number] 1-2 tablets every 8 hours as needed for nausea [facility] ondansetron 4 mg tablet 09-19 00:00: 00 Yes [id number] 1-2 tablets every 8 hours as needed for nausea [facility] ondansetron 4 mg tablet 09-19 00:00: 00 Yes [id number] 1-2 tablets every 8 hours as needed for nausea [facility] ondansetron 4 mg tablet 09-19 00:00: 00 Yes [id number] 1-2 tablets every 8 hours as needed for nausea [facility] ondansetron 4 mg tablet 09-19 00:00: 00 01-16 00:00 :00 No [id number] 1-2 tablets every 8 hours as needed for nausea [facility] metroNIDAZO LE (FLAGYL) 500 mg tablet 09-02 00:00: 00 09-10 04:59 :00 No [id number] 500mg Take 1 tablet by mouth in the morning and 1 tablet in the evening. Do all this for 7 days. [facility] metoclopram nicolas HCl 10 mg tablet 0 16 00:00: 00 Yes [id number] 10mg Take 1 tablet by mouth every 6 (six) hours as needed for Nausea and Vomiting (N/V). [facility] pyridoxine, VITAMIN B-6, (VITAMIN B-6) 25 mg tablet 0 16 00:00: 00 Yes [id number] 25mg Take 1 tablet by mouth every 6 (six) hours as needed for Nausea and Vomiting (N/V). [facility] [facility] do[facility] (UNISOM, DOXYLAMINE, ) 25 mg tablet 0 16 00:00: 00 Yes [id number] 25mg Take 1 tablet by mouth at bedtime as needed for Nausea and Vomiting (N/V). [facility] metoclopram nicolas HCl 10 mg tablet 2022-0 16 00:00: 00 Yes [id number] 10mg Take 1 tablet by mouth every 6 (six) hours as needed for Nausea and Vomiting (N/V). [facility] metoclopram nicolas HCl 10 mg tablet 0 16 00:00: 00 Yes [id number] 10mg Take 1 tablet by mouth every 6 (six) hours as needed for Nausea and Vomiting (N/V). [facility] pyridoxine, VITAMIN B-6, (VITAMIN B-6) 25 mg tablet 0 16 00:00: 00 Yes [id number] 25mg Take 1 tablet by mouth every 6 (six) hours as needed for Nausea and Vomiting (N/V). [facility] doxylamine (UNISOM, DOXYLAMINE, ) 25 mg tablet 2022-0 -16 00:00: 00 Yes [id number] 25mg Take 1 tablet by mouth at bedtime as needed for Nausea and Vomiting (N/V). [facility] metoclopram nicolas HCl 10 mg tablet 2022-0 6-16 00:00: 00 Yes [id number] 10mg Take 1 tablet by mouth every 6 (six) hours as needed for Nausea and Vomiting (N/V). [facility] metoclopram nicolas HCl 10 mg tablet 2022-0 6-16 00:00: 00 Yes [id number] 10mg Take 1 tablet by mouth every 6 (six) hours as needed for Nausea and Vomiting (N/V). [facility] pyridoxine, VITAMIN B-6, (VITAMIN B-6) 25 mg tablet 0 616 00:00: 00 Yes [id number] 25mg Take 1 tablet by mouth every 6 (six) hours as needed for Nausea and Vomiting (N/V). [facility] doxylamine (UNISOM, DOXYLAMINE, ) 25 mg tablet 0 616 00:00: 00 Yes [id number] 25mg Take 1 tablet by mouth at bedtime as needed for Nausea and Vomiting (N/V). [facility] metoclopram nicolas HCl 10 mg tablet 2022-0 16 00:00: 00 Yes [id number] 10mg Take 1 tablet by mouth every 6 (six) hours as needed for Nausea and Vomiting (N/V). [facility] metoclopram nicolas HCl 10 mg tablet 0 16 00:00: 00 Yes [id number] 10mg Take 1 tablet by mouth every 6 (six) hours as needed for Nausea and Vomiting (N/V). [facility] pyridoxine, VITAMIN B-6, (VITAMIN B-6) 25 mg tablet 0 16 00:00: 00 Yes [id number] 25mg Take 1 tablet by mouth every 6 (six) hours as needed for Nausea and Vomiting (N/V). [facility] doxylamine (UNISOM, DOXYLAMINE, ) 25 mg tablet 0 6-16 00:00: 00 Yes [id number] 25mg Take 1 tablet by mouth at bedtime as needed for Nausea and Vomiting (N/V). [facility] metoclopram nicolas HCl 10 mg tablet 2022-0 6-16 00:00: 00 Yes [id number] 10mg Take 1 tablet by mouth every 6 (six) hours as needed for Nausea and Vomiting (N/V). [facility] metoclopram nicolas HCl 10 mg tablet 2023-0 6-16 00:00: 00 Yes [id number] 10mg Take 1 tablet by mouth every 6 (six) hours as needed for Nausea and Vomiting (N/V). [facility] pyridoxine, VITAMIN B-6, (VITAMIN B-6) 25 mg tablet 2022-0 6-16 00:00: 00 Yes [id number] 25mg Take 1 tablet by mouth every 6 (six) hours as needed for Nausea and Vomiting (N/V). [facility] doxylamine (UNISOM, DOXYLAMINE, ) 25 mg tablet 2022-0 6-16 00:00: 00 Yes [id number] 25mg Take 1 tablet by mouth at bedtime as needed for Nausea and Vomiting (N/V). [facility] metoclopram nicolas HCl 10 mg tablet 2022-0 -16 00:00: 00 Yes [id number] 10mg Take 1 tablet by mouth every 6 (six) hours as needed for Nausea and Vomiting (N/V). [facility] metoclopram nicolas HCl 10 mg tablet 2022-0 -16 00:00: 00 Yes [id number] 10mg Take 1 tablet by mouth every 6 (six) hours as needed for Nausea and Vomiting (N/V). [facility] pyridoxine, VITAMIN B-6, (VITAMIN B-6) 25 mg tablet 2022-0 6-16 00:00: 00 Yes [id number] 25mg Take 1 tablet by mouth every 6 (six) hours as needed for Nausea and Vomiting (N/V). [facility] doxylamine (UNISOM, DOXYLAMINE, ) 25 mg tablet 2022-0 6-16 00:00: 00 Yes [id number] 25mg Take 1 tablet by mouth at bedtime as needed for Nausea and Vomiting (N/V). [facility] metoclopram nicolas HCl 10 mg tablet 2022-0 6-16 00:00: 00 Yes [id number] 10mg Take 1 tablet by mouth every 6 (six) hours as needed for Nausea and Vomiting (N/V). [facility] metoclopram nicolas HCl 10 mg tablet 2022-0 6-16 00:00: 00 Yes [id number] 10mg Take 1 tablet by mouth every 6 (six) hours as needed for Nausea and Vomiting (N/V). [facility] pyridoxine, VITAMIN B-6, (VITAMIN B-6) 25 mg tablet 0 08-29 00:00: 00 Yes [id number] 25mg Take 1 tablet by mouth every 6 (six) hours as needed for Nausea and Vomiting (N/V). [facility] doxylamine (UNISOM, DOXYLAMINE, ) 25 mg tablet 0 08-29 00:00: 00 Yes [id number] 25mg Take 1 tablet by mouth at bedtime as needed for Nausea and Vomiting (N/V). [facility] metoclopram nicolas HCl 10 mg tablet 08-29 00:00: 00 Yes [id number] 10mg Take 1 tablet by mouth every 6 (six) hours as needed for Nausea and Vomiting (N/V). [facility] metoclopram nicolas HCl 10 mg tablet 08-29 00:00: 00 Yes [id number] 10mg Take 1 tablet by mouth every 6 (six) hours as needed for Nausea and Vomiting (N/V). [facility] pyridoxine, VITAMIN B-6, (VITAMIN B-6) 25 mg tablet 08-29 00:00: 00 Yes [id number] 25mg Take 1 tablet by mouth every 6 (six) hours as needed for Nausea and Vomiting (N/V). [facility] doxylamine (UNISOM, DOXYLAMINE, ) 25 mg tablet 0 08-29 00:00: 00 Yes [id number] 25mg Take 1 tablet by mouth at bedtime as needed for Nausea and Vomiting (N/V). [facility] metoclopram nicolas HCl 10 mg tablet 0 16 00:00: 00 Yes [id number] 10mg Take 1 tablet by mouth every 6 (six) hours as needed for Nausea and Vomiting (N/V). [facility] metoclopram nicolas HCl 10 mg tablet 0 16 00:00: 00 Yes [id number] 10mg Take 1 tablet by mouth every 6 (six) hours as needed for Nausea and Vomiting (N/V). [facility] pyridoxine, VITAMIN B-6, (VITAMIN B-6) 25 mg tablet 0 16 00:00: 00 Yes [id number] 25mg Take 1 tablet by mouth every 6 (six) hours as needed for Nausea and Vomiting (N/V). [facility] doxylamine (UNISOM, DOXYLAMINE, ) 25 mg tablet 0 16 00:00: 00 Yes [id number] 25mg Take 1 tablet by mouth at bedtime as needed for Nausea and Vomiting (N/V). [facility] metoclopram nicolas HCl 10 mg tablet 0 16 00:00: 00 Yes [id number] 10mg Take 1 tablet by mouth every 6 (six) hours as needed for Nausea and Vomiting (N/V). [facility] metoclopram nicolas HCl 10 mg tablet 2022-0 16 00:00: 00 Yes [id number] 10mg Take 1 tablet by mouth every 6 (six) hours as needed for Nausea and Vomiting (N/V). [facility] pyridoxine, VITAMIN B-6, (VITAMIN B-6) 25 mg tablet 0 16 00:00: 00 Yes [id number] 25mg Take 1 tablet by mouth every 6 (six) hours as needed for Nausea and Vomiting (N/V). [facility] doxylamine (UNISOM, DOXYLAMINE, ) 25 mg tablet 0 16 00:00: 00 Yes [id number] 25mg Take 1 tablet by mouth at bedtime as needed for Nausea and Vomiting (N/V). [facility] metoclopram nicolas HCl 10 mg tablet 2022-0 6-16 00:00: 00 Yes [id number] 10mg Take 1 tablet by mouth every 6 (six) hours as needed for Nausea and Vomiting (N/V). [facility] metoclopram nicolas HCl 10 mg tablet 2022-0 6-16 00:00: 00 Yes [id number] 10mg Take 1 tablet by mouth every 6 (six) hours as needed for Nausea and Vomiting (N/V). [facility] pyridoxine, VITAMIN B-6, (VITAMIN B-6) 25 mg tablet 2022-0 6-16 00:00: 00 Yes [id number] 25mg Take 1 tablet by mouth every 6 (six) hours as needed for Nausea and Vomiting (N/V). [facility] doxylamine (UNISOM, DOXYLAMINE, ) 25 mg tablet 2022-0 6-16 00:00: 00 Yes [id number] 25mg Take 1 tablet by mouth at bedtime as needed for Nausea and Vomiting (N/V). [facility] metoclopram nicolas HCl 10 mg tablet 2022-0 6-16 00:00: 00 Yes [id number] 10mg Take 1 tablet by mouth every 6 (six) hours as needed for Nausea and Vomiting (N/V). [facility] metoclopram nicolas HCl 10 mg tablet 2022-0 6-16 00:00: 00 Yes [id number] 10mg Take 1 tablet by mouth every 6 (six) hours as needed for Nausea and Vomiting (N/V). [facility] pyridoxine, VITAMIN B-6, (VITAMIN B-6) 25 mg tablet 2022-0 6-16 00:00: 00 Yes [id number] 25mg Take 1 tablet by mouth every 6 (six) hours as needed for Nausea and Vomiting (N/V). [facility] doxylamine (UNISOM, DOXYLAMINE, ) 25 mg tablet 2022-0 6-16 00:00: 00 Yes [id number] 25mg Take 1 tablet by mouth at bedtime as needed for Nausea and Vomiting (N/V). [facility] metoclopram nicolas HCl 10 mg tablet 2022-0 6-16 00:00: 00 Yes [id number] 10mg Take 1 tablet by mouth every 6 (six) hours as needed for Nausea and Vomiting (N/V). [facility] metoclopram nicolas HCl 10 mg tablet 3-0 6-16 00:00: 00 Yes [id number] 10mg Take 1 tablet by mouth every 6 (six) hours as needed for Nausea and Vomiting (N/V). [facility] pyridoxine, VITAMIN B-6, (VITAMIN B-6) 25 mg tablet 2022-0 6-16 00:00: 00 Yes [id number] 25mg Take 1 tablet by mouth every 6 (six) hours as needed for Nausea and Vomiting (N/V). [facility] doxylamine (UNISOM, DOXYLAMINE, ) 25 mg tablet 2022-0 6-16 00:00: 00 Yes [id number] 25mg Take 1 tablet by mouth at bedtime as needed for Nausea and Vomiting (N/V). [facility] metoclopram nicolas HCl 10 mg tablet 2022-0 6-16 00:00: 00 Yes [id number] 10mg Take 1 tablet by mouth every 6 (six) hours as needed for Nausea and Vomiting (N/V). [facility] metoclopram nicolas HCl 10 mg tablet 2022-0 6-16 00:00: 00 Yes [id number] 10mg Take 1 tablet by mouth every 6 (six) hours as needed for Nausea and Vomiting (N/V). [facility] pyridoxine, VITAMIN B-6, (VITAMIN B-6) 25 mg tablet 2022-0 6-16 00:00: 00 Yes [id number] 25mg Take 1 tablet by mouth every 6 (six) hours as needed for Nausea and Vomiting (N/V). [facility] doxylamine (UNISOM, DOXYLAMINE, ) 25 mg tablet 2022-0 6-16 00:00: 00 Yes [id number] 25mg Take 1 tablet by mouth at bedtime as needed for Nausea and Vomiting (N/V). [facility] metoclopram nicolas HCl 10 mg tablet 2022-0 6-16 00:00: 00 Yes [id number] 10mg Take 1 tablet by mouth every 6 (six) hours as needed for Nausea and Vomiting (N/V). [facility] metoclopram nicolas HCl 10 mg tablet 2022-0 6-16 00:00: 00 Yes [id number] 10mg Take 1 tablet by mouth every 6 (six) hours as needed for Nausea and Vomiting (N/V). [facility] pyridoxine, VITAMIN B-6, (VITAMIN B-6) 25 mg tablet 2022-0 6-16 00:00: 00 Yes [id number] 25mg Take 1 tablet by mouth every 6 (six) hours as needed for Nausea and Vomiting (N/V). [facility] doxylamine (UNISOM, DOXYLAMINE, ) 25 mg tablet 0 16 00:00: 00 Yes [id number] 25mg Take 1 tablet by mouth at bedtime as needed for Nausea and Vomiting (N/V). [facility] metoclopram nicolas HCl 10 mg tablet 0 16 00:00: 00 Yes [id number] 10mg Take 1 tablet by mouth every 6 (six) hours as needed for Nausea and Vomiting (N/V). [facility] metoclopram nicolas HCl 10 mg tablet 0 16 00:00: 00 Yes [id number] 10mg Take 1 tablet by mouth every 6 (six) hours as needed for Nausea and Vomiting (N/V). [facility] pyridoxine, VITAMIN B-6, (VITAMIN B-6) 25 mg tablet 16 00:00: 00 Yes [id number] 25mg Take 1 tablet by mouth every 6 (six) hours as needed for Nausea and Vomiting (N/V). [facility] doxylamine (UNISOM, DOXYLAMINE, ) 25 mg tablet 16 00:00: 00 Yes [id number] 25mg Take 1 tablet by mouth at bedtime as needed for Nausea and Vomiting (N/V). [facility] metoclopram nicolas HCl 10 mg tablet 0 16 00:00: 00 Yes [id number] 10mg Take 1 tablet by mouth every 6 (six) hours as needed for Nausea and Vomiting (N/V). [facility] metoclopram nicolas HCl 10 mg tablet 0 16 00:00: 00 Yes [id number] 10mg Take 1 tablet by mouth every 6 (six) hours as needed for Nausea and Vomiting (N/V). [facility] pyridoxine, VITAMIN B-6, (VITAMIN B-6) 25 mg tablet 0 16 00:00: 00 Yes [id number] 25mg Take 1 tablet by mouth every 6 (six) hours as needed for Nausea and Vomiting (N/V). [facility] doxylamine (UNISOM, DOXYLAMINE, ) 25 mg tablet 0 16 00:00: 00 Yes [id number] 25mg Take 1 tablet by mouth at bedtime as needed for Nausea and Vomiting (N/V). [facility] metoclopram nioclas HCl 10 mg tablet 2022-0 16 00:00: 00 Yes [id number] 10mg Take 1 tablet by mouth every 6 (six) hours as needed for Nausea and Vomiting (N/V). [facility] metoclopram nicolas HCl 10 mg tablet 2022-0 16 00:00: 00 Yes [id number] 10mg Take 1 tablet by mouth every 6 (six) hours as needed for Nausea and Vomiting (N/V). [facility] pyridoxine, VITAMIN B-6, (VITAMIN B-6) 25 mg tablet 0 16 00:00: 00 Yes [id number] 25mg Take 1 tablet by mouth every 6 (six) hours as needed for Nausea and Vomiting (N/V). [facility] doxylamine (UNISOM, DOXYLAMINE, ) 25 mg tablet 0 16 00:00: 00 Yes [id number] 25mg Take 1 tablet by mouth at bedtime as needed for Nausea and Vomiting (N/V). [facility] metoclopram nicolas HCl 10 mg tablet 2022-0 16 00:00: 00 Yes [id number] 10mg Take 1 tablet by mouth every 6 (six) hours as needed for Nausea and Vomiting (N/V). [facility] metoclopram nicolas HCl 10 mg tablet 2022-0 16 00:00: 00 Yes [id number] 10mg Take 1 tablet by mouth every 6 (six) hours as needed for Nausea and Vomiting (N/V). [facility] pyridoxine, VITAMIN B-6, (VITAMIN B-6) 25 mg tablet 2022-0 -16 00:00: 00 Yes [id number] 25mg Take 1 tablet by mouth every 6 (six) hours as needed for Nausea and Vomiting (N/V). [facility] doxylamine (UNISOM, DOXYLAMINE, ) 25 mg tablet 0 6-16 00:00: 00 Yes [id number] 25mg Take 1 tablet by mouth at bedtime as needed for Nausea and Vomiting (N/V). [facility] metoclopram nicolas HCl 10 mg tablet 2022-0 6-16 00:00: 00 Yes [id number] 10mg Take 1 tablet by mouth every 6 (six) hours as needed for Nausea and Vomiting (N/V). [facility] metoclopram nicolas HCl 10 mg tablet 2022-0 6-16 00:00: 00 Yes [id number] 10mg Take 1 tablet by mouth every 6 (six) hours as needed for Nausea and Vomiting (N/V). [facility] pyridoxine, VITAMIN B-6, (VITAMIN B-6) 25 mg tablet 2022-0 -16 00:00: 00 Yes [id number] 25mg Take 1 tablet by mouth every 6 (six) hours as needed for Nausea and Vomiting (N/V). [facility] doxylamine (UNISOM, DOXYLAMINE, ) 25 mg tablet 0 6-16 00:00: 00 Yes [id number] 25mg Take 1 tablet by mouth at bedtime as needed for Nausea and Vomiting (N/V). [facility] metoclopram nicolas HCl 10 mg tablet 2022-0 6-16 00:00: 00 Yes [id number] 10mg Take 1 tablet by mouth every 6 (six) hours as needed for Nausea and Vomiting (N/V). [facility] metoclopram nicolas HCl 10 mg tablet 2022-0 6-16 00:00: 00 Yes [id number] 10mg Take 1 tablet by mouth every 6 (six) hours as needed for Nausea and Vomiting (N/V). [facility] pyridoxine, VITAMIN B-6, (VITAMIN B-6) 25 mg tablet 2022-0 6-16 00:00: 00 Yes [id number] 25mg Take 1 tablet by mouth every 6 (six) hours as needed for Nausea and Vomiting (N/V). [facility] doxylamine (UNISOM, DOXYLAMINE, ) 25 mg tablet 2022-0 6-16 00:00: 00 Yes [id number] 25mg Take 1 tablet by mouth at bedtime as needed for Nausea and Vomiting (N/V). [facility] metoclopram nicolas HCl 10 mg tablet 2022-0 6-16 00:00: 00 Yes [id number] 10mg Take 1 tablet by mouth every 6 (six) hours as needed for Nausea and Vomiting (N/V). [facility] metoclopram nicolas HCl 10 mg tablet 2022-0 6-16 00:00: 00 Yes [id number] 10mg Take 1 tablet by mouth every 6 (six) hours as needed for Nausea and Vomiting (N/V). [facility] pyridoxine, VITAMIN B-6, (VITAMIN B-6) 25 mg tablet 2022-0 6-16 00:00: 00 Yes [id number] 25mg Take 1 tablet by mouth every 6 (six) hours as needed for Nausea and Vomiting (N/V). [facility] doxylamine (UNISOM, DOXYLAMINE, ) 25 mg tablet 2022-0 6-16 00:00: 00 Yes [id number] 25mg Take 1 tablet by mouth at bedtime as needed for Nausea and Vomiting (N/V). [facility] metoclopram nicolas HCl 10 mg tablet 2022-0 6-16 00:00: 00 Yes [id number] 10mg Take 1 tablet by mouth every 6 (six) hours as needed for Nausea and Vomiting (N/V). [facility] metoclopram nicolas HCl 10 mg tablet 2022-0 6-16 00:00: 00 Yes [id number] 10mg Take 1 tablet by mouth every 6 (six) hours as needed for Nausea and Vomiting (N/V). [facility] pyridoxine, VITAMIN B-6, (VITAMIN B-6) 25 mg tablet 2022-0 6-16 00:00: 00 Yes [id number] 25mg Take 1 tablet by mouth every 6 (six) hours as needed for Nausea and Vomiting (N/V). [facility] doxylamine (UNISOM, DOXYLAMINE, ) 25 mg tablet 2022-0 16 00:00: 00 Yes [id number] 25mg Take 1 tablet by mouth at bedtime as needed for Nausea and Vomiting (N/V). [facility] metoclopram nicolas HCl 10 mg tablet 2022-0 16 00:00: 00 Yes [id number] 10mg Take 1 tablet by mouth every 6 (six) hours as needed for Nausea and Vomiting (N/V). [facility] metoclopram nicolas HCl 10 mg tablet 2022-0 -16 00:00: 00 Yes [id number] 10mg Take 1 tablet by mouth every 6 (six) hours as needed for Nausea and Vomiting (N/V). [facility] pyridoxine, VITAMIN B-6, (VITAMIN B-6) 25 mg tablet 2022-0 16 00:00: 00 Yes [id number] 25mg Take 1 tablet by mouth every 6 (six) hours as needed for Nausea and Vomiting (N/V). [facility] doxylamine (UNISOM, DOXYLAMINE, ) 25 mg tablet 2022-0 16 00:00: 00 Yes [id number] 25mg Take 1 tablet by mouth at bedtime as needed for Nausea and Vomiting (N/V). [facility] metoclopram nicolas HCl 10 mg tablet 2022-0 16 00:00: 00 Yes [id number] 10mg Take 1 tablet by mouth every 6 (six) hours as needed for Nausea and Vomiting (N/V). [facility] metoclopram nicolas HCl 10 mg tablet 2022-0 -16 00:00: 00 Yes [id number] 10mg Take 1 tablet by mouth every 6 (six) hours as needed for Nausea and Vomiting (N/V). [facility] pyridoxine, VITAMIN B-6, (VITAMIN B-6) 25 mg tablet 2022-0 -16 00:00: 00 Yes [id number] 25mg Take 1 tablet by mouth every 6 (six) hours as needed for Nausea and Vomiting (N/V). [facility] doxylamine (UNISOM, DOXYLAMINE, ) 25 mg tablet 2022-0 6-16 00:00: 00 Yes [id number] 25mg Take 1 tablet by mouth at bedtime as needed for Nausea and Vomiting (N/V). [facility] metoclopram nicolas HCl 10 mg tablet 0 08-29 00:00: 00 Yes [id number] 10mg Take 1 tablet by mouth every 6 (six) hours as needed for Nausea and Vomiting (N/V). [facility] metoclopram nicolas HCl 10 mg tablet 08-29 00:00: 00 Yes [id number] 10mg Take 1 tablet by mouth every 6 (six) hours as needed for Nausea and Vomiting (N/V). [facility] pyridoxine, VITAMIN B-6, (VITAMIN B-6) 25 mg tablet 08-29 00:00: 00 Yes [id number] 25mg Take 1 tablet by mouth every 6 (six) hours as needed for Nausea and Vomiting (N/V). [facility] doxylamine (UNISOM, DOXYLAMINE, ) 25 mg tablet 08-29 00:00: 00 Yes [id number] 25mg Take 1 tablet by mouth at bedtime as needed for Nausea and Vomiting (N/V). [facility] metoclopram nicolas HCl 10 mg tablet 08-29 00:00: 00 Yes [id number] 10mg Take 1 tablet by mouth every 6 (six) hours as needed for Nausea and Vomiting (N/V). [facility] metoclopram nicolas HCl 10 mg tablet 08-29 00:00: 00 Yes [id number] 10mg Take 1 tablet by mouth every 6 (six) hours as needed for Nausea and Vomiting (N/V). [facility] pyridoxine, VITAMIN B-6, (VITAMIN B-6) 25 mg tablet 0 08-29 00:00: 00 Yes [id number] 25mg Take 1 tablet by mouth every 6 (six) hours as needed for Nausea and Vomiting (N/V). [facility] doxylamine (UNISOM, DOXYLAMINE, ) 25 mg tablet 0 16 00:00: 00 Yes [id number] 25mg Take 1 tablet by mouth at bedtime as needed for Nausea and Vomiting (N/V). [facility] metoclopram nicolas HCl 10 mg tablet 3-0 6-16 00:00: 00 Yes [id number] 10mg Take 1 tablet by mouth every 6 (six) hours as needed for Nausea and Vomiting (N/V). [facility] metoclopram nicolas HCl 10 mg tablet 2023-0 6-16 00:00: 00 Yes [id number] 10mg Take 1 tablet by mouth every 6 (six) hours as needed for Nausea and Vomiting (N/V). [facility] metoclopram nicolas HCl 10 mg tablet 3-0 6-16 00:00: 00 Yes [id number] 10mg Take 1 tablet by mouth every 6 (six) hours as needed for Nausea and Vomiting (N/V). [facility] metoclopram nicolas HCl 10 mg tablet 3-0 6-16 00:00: 00 Yes [id number] 10mg Take 1 tablet by mouth every 6 (six) hours as needed for Nausea and Vomiting (N/V). [facility] metoclopram nicolas HCl 10 mg tablet 3-0 6-16 00:00: 00 Yes [id number] 10mg Take 1 tablet by mouth every 6 (six) hours as needed for Nausea and Vomiting (N/V). [facility] metoclopram nicolas HCl 10 mg tablet 3-0 6-16 00:00: 00 Yes [id number] 10mg Take 1 tablet by mouth every 6 (six) hours as needed for Nausea and Vomiting (N/V). [facility] metoclopram nicolas HCl 10 mg tablet 2023-0 6-16 00:00: 00 Yes [id number] 10mg Take 1 tablet by mouth every 6 (six) hours as needed for Nausea and Vomiting (N/V). [facility] metoclopram nicolas HCl 10 mg tablet 3-0 6-16 00:00: 00 Yes [id number] 10mg Take 1 tablet by mouth every 6 (six) hours as needed for Nausea and Vomiting (N/V). [facility] metoclopram nicolas HCl 10 mg tablet 2023-0 6-16 00:00: 00 Yes [id number] 10mg Take 1 tablet by mouth every 6 (six) hours as needed for Nausea and Vomiting (N/V). [facility] metoclopram nicolas HCl 10 mg tablet 0 16 00:00: 00 Yes [id number] 10mg Take 1 tablet by mouth every 6 (six) hours as needed for Nausea and Vomiting (N/V). [facility] metoclopram nicolas HCl 10 mg tablet 0 16 00:00: 00 Yes [id number] 10mg Take 1 tablet by mouth every 6 (six) hours as needed for Nausea and Vomiting (N/V). [facility] metoclopram nicolas HCl 10 mg tablet 0 08-29 00:00: 00 Yes [id number] 10mg Take 1 tablet by mouth every 6 (six) hours as needed for Nausea and Vomiting (N/V). [facility] pyridoxine, VITAMIN B-6, (VITAMIN B-6) 25 mg tablet 08-29 00:00: 00 Yes [id number] 25mg Take 1 tablet by mouth every 6 (six) hours as needed for Nausea and Vomiting (N/V). [facility] doxylamine (UNISOM, DOXYLAMINE, ) 25 mg tablet 08-29 00:00: 00 Yes [id number] 25mg Take 1 tablet by mouth at bedtime as needed for Nausea and Vomiting (N/V). [facility] metoclopram nicolas HCl 10 mg tablet 0 16 00:00: 00 Yes [id number] 10mg Take 1 tablet by mouth every 6 (six) hours as needed for Nausea and Vomiting (N/V). [facility] metoclopram nicolas HCl 10 mg tablet 2022-0 16 00:00: 00 Yes [id number] 10mg Take 1 tablet by mouth every 6 (six) hours as needed for Nausea and Vomiting (N/V). [facility] pyridoxine, VITAMIN B-6, (VITAMIN B-6) 25 mg tablet 2022-0 16 00:00: 00 Yes [id number] 25mg Take 1 tablet by mouth every 6 (six) hours as needed for Nausea and Vomiting (N/V). [facility] doxylamine (UNISOM, DOXYLAMINE, ) 25 mg tablet 0 6-16 00:00: 00 Yes [id number] 25mg Take 1 tablet by mouth at bedtime as needed for Nausea and Vomiting (N/V). [facility] metoclopram nicolas HCl 10 mg tablet 0 6-16 00:00: 00 Yes [id number] 10mg Take 1 tablet by mouth every 6 (six) hours as needed for Nausea and Vomiting (N/V). [facility] metoclopram nicolas HCl 10 mg tablet 0 6-16 00:00: 00 Yes [id number] 10mg Take 1 tablet by mouth every 6 (six) hours as needed for Nausea and Vomiting (N/V). [facility] pyridoxine, VITAMIN B-6, (VITAMIN B-6) 25 mg tablet 0 16 00:00: 00 Yes [id number] 25mg Take 1 tablet by mouth every 6 (six) hours as needed for Nausea and Vomiting (N/V). [facility] doxylamine (UNISOM, DOXYLAMINE, ) 25 mg tablet 0 6-16 00:00: 00 Yes [id number] 25mg Take 1 tablet by mouth at bedtime as needed for Nausea and Vomiting (N/V). [facility] metoclopram nicolas HCl 10 mg tablet 0 6-16 00:00: 00 Yes [id number] 10mg Take 1 tablet by mouth every 6 (six) hours as needed for Nausea and Vomiting (N/V). [facility] metoclopram nicolas HCl 10 mg tablet 0 6-16 00:00: 00 20 00:00 :00 No [id number] 10mg Take 1 tablet by mouth every 6 (six) hours as needed for Nausea and Vomiting (N/V). [facility] metoclopram nicolas HCl 10 mg tablet 0 6-16 00:00: 00 20 00:00 :00 No [id number] 10mg Take 1 tablet by mouth every 6 (six) hours as needed for Nausea and Vomiting (N/V). [facility] metoclopram nicolas HCl 10 mg tablet 16 00:00: 00 03-04 00:00 :00 No [id number] 10mg Take 1 tablet by mouth every 6 (six) hours as needed for Nausea and Vomiting (N/V). [facility] metoclopram nicolas HCl 10 mg tablet 16 00:00: 00 03-04 00:00 :00 No [id number] 10mg Take 1 tablet by mouth every 6 (six) hours as needed for Nausea and Vomiting (N/V). [facility] pyridoxine, VITAMIN B-6, (VITAMIN B-6) 25 mg tablet 08-29 00:00: 00 02-24 00:00 :00 No [id number] 25mg Take 1 tablet by mouth every 6 (six) hours as needed for Nausea and Vomiting (N/V). [facility] doxylamine (UNISOM, DOXYLAMINE, ) 25 mg tablet 16 00:00: 00 02-24 00:00 :00 No [id number] 25mg Take 1 tablet by mouth at bedtime as needed for Nausea and Vomiting (N/V). [facility] PNV no.95/shara us fum/folic ac ( ORAL) 08-28 13:59: 42 Yes Take by mouth. [facility] PNV no.95/shara us fum/folic ac ( ORAL) 08-28 13:59: 42 Yes Take by mouth. [facility] PNV no.95/shara us fum/folic ac ( ORAL) 08-28 13:59: 42 Yes Take by mouth. [facility] PNV no.95/shara us fum/folic ac ( ORAL) 08-28 13:59: 42 Yes Take by mouth. [facility] PNV no.95/shara us fum/folic ac ( ORAL) 08-28 13:59: 42 Yes Take by mouth. [facility] PNV no.95/shara us fum/folic ac ( ORAL) 08-28 13:59: 42 Yes Take by mouth. [facility] PNV no.95/shara us fum/folic ac ( ORAL) 08-28 13:59: 42 Yes Take by mouth. [facility] PNV no.95/shara us fum/folic ac ( ORAL) 08-28 13:59: 42 Yes Take by mouth. [facility] PNV no.95/shara us fum/folic ac ( ORAL) 08-28 13:59: 42 Yes Take by mouth. [facility] PNV no.95/shara us fum/folic ac ( ORAL) 08-28 13:59: 42 Yes Take by mouth. [facility] PNV no.95/shara us fum/folic ac ( ORAL) 08-28 13:59: 42 Yes Take by mouth. [facility] PNV no.95/shara us fum/folic ac ( ORAL) 08-28 13:59: 42 Yes Take by mouth. [facility] PNV no.95/shara us fum/folic ac ( ORAL) 08-28 13:59: 42 Yes Take by mouth. [facility] PNV no.95/shara us fum/folic ac ( ORAL) 08-28 13:59: 42 Yes Take by mouth. [facility] PNV no.95/shara us fum/folic ac ( ORAL) 08-28 13:59: 42 Yes Take by mouth. [facility] PNV no.95/shara us fum/folic ac ( ORAL) 08-28 13:59: 42 Yes Take by mouth. [facility] PNV no.95/shara us fum/folic ac ( ORAL) 08-28 13:59: 42 Yes Take by mouth. [facility] cephALEXin 500 mg capsule 2021-03 2-13 00:00: 00 03-05 05:59 :00 No [id number] 500mg Take 1 capsule by mouth 4 (four) times daily for 7 days. [facility] acetaminoph en (TYLENOL) tablet 1,000 mg 2021-03 19:36: 36 02-22 19:38 :00 No 1000mg 1,000 mg, Oral, Q6HPRN, 1 dose, Starting on 02/22/22 at 1336, Until 02/22/22 at 1338, Routine, Pain (scale 4-6) [facility] albuterol (PROAIR HFA) 90 mcg/actuati on inhaler 2020-03 00:00: 00 Yes [id number] 2{puff} Inhale 2 Puffs every 4 (four) hours as needed for Wheezing or Shortness of Breath. [facility] albuterol (PROAIR HFA) 90 mcg/actuati on inhaler 2020-03 00:00: 00 Yes [id number] 2{puff} Inhale 2 Puffs every 4 (four) hours as needed for Wheezing or Shortness of Breath. [facility] albuterol (PROAIR HFA) 90 mcg/actuati on inhaler 2020-03 00:00: 00 Yes [id number] 2{puff} Inhale 2 Puffs every 4 (four) hours as needed for Wheezing or Shortness of Breath. [facility] albuterol (PROAIR HFA) 90 mcg/actuati on inhaler 2020-03 00:00: 00 Yes [id number] 2{puff} Inhale 2 Puffs every 4 (four) hours as needed for Wheezing or Shortness of Breath. [facility] albuterol (PROAIR HFA) 90 mcg/actuati on inhaler 2020-03 00:00: 00 Yes [id number] 2{puff} Inhale 2 Puffs every 4 (four) hours as needed for Wheezing or Shortness of Breath. [facility] albuterol (PROAIR HFA) 90 mcg/actuati on inhaler 2020-03 00:00: 00 Yes [id number] 2{puff} Inhale 2 Puffs every 4 (four) hours as needed for Wheezing or Shortness of Breath. [facility] albuterol (PROAIR HFA) 90 mcg/actuati on inhaler 2020-03 00:00: 00 Yes [id number] 2{puff} Inhale 2 Puffs every 4 (four) hours as needed for Wheezing or Shortness of Breath. [facility] albuterol (PROAIR HFA) 90 mcg/actuati on inhaler 2020-03 00:00: 00 Yes [id number] 2{puff} Inhale 2 Puffs every 4 (four) hours as needed for Wheezing or Shortness of Breath. [facility] albuterol (PROAIR HFA) 90 mcg/actuati on inhaler 2020-03 00:00: 00 Yes [id number] 2{puff} Inhale 2 Puffs every 4 (four) hours as needed for Wheezing or Shortness of Breath. [facility] albuterol (PROAIR HFA) 90 mcg/actuati on inhaler 2020-03 00:00: 00 Yes [id number] 2{puff} Inhale 2 Puffs every 4 (four) hours as needed for Wheezing or Shortness of Breath. [facility] albuterol (PROAIR HFA) 90 mcg/actuati on inhaler 2020-03 00:00: 00 Yes [id number] 2{puff} Inhale 2 Puffs every 4 (four) hours as needed for Wheezing or Shortness of Breath. [facility] albuterol (PROAIR HFA) 90 mcg/actuati on inhaler 2020-03 00:00: 00 Yes [id number] 2{puff} Inhale 2 Puffs every 4 (four) hours as needed for Wheezing or Shortness of Breath. [facility] albuterol (PROAIR HFA) 90 mcg/actuati on inhaler 2020-03 00:00: 00 Yes [id number] 2{puff} Inhale 2 Puffs every 4 (four) hours as needed for Wheezing or Shortness of Breath. [facility] albuterol (PROAIR HFA) 90 mcg/actuati on inhaler 2020-03 00:00: 00 Yes [id number] 2{puff} Inhale 2 Puffs every 4 (four) hours as needed for Wheezing or Shortness of Breath. [facility] albuterol (PROAIR HFA) 90 mcg/actuati on inhaler 2020-03 00:00: 00 10-23 00:00 :00 No [id number] 2{puff} Inhale 2 Puffs every 4 (four) hours as needed for Wheezing or Shortness of Breath. [facility] ipratropium -albuteroL 0.5 mg-3 mg(2.5 mg base)/3 mL nebulizer solution 11-23 00:00: 00 Yes [id number] 3mL Inhale 3 mL every 4 (four) hours as needed for Wheezing, Shortness of Breath or Chest tightness. [facility] ipratropium -albuteroL 0.5 mg-3 mg(2.5 mg base)/3 mL nebulizer solution 11-23 00:00: 00 Yes [id number] 3mL Inhale 3 mL every 4 (four) hours as needed for Wheezing, Shortness of Breath or Chest tightness. [facility] ipratropium -albuteroL 0.5 mg-3 mg(2.5 mg base)/3 mL nebulizer solution 11-23 00:00: 00 Yes [id number] 3mL Inhale 3 mL every 4 (four) hours as needed for Wheezing, Shortness of Breath or Chest tightness. [facility] ipratropium -albuteroL 0.5 mg-3 mg(2.5 mg base)/3 mL nebulizer solution 11-23 00:00: 00 Yes [id number] 3mL Inhale 3 mL every 4 (four) hours as needed for Wheezing, Shortness of Breath or Chest tightness. [facility] ipratropium -albuteroL 0.5 mg-3 mg(2.5 mg base)/3 mL nebulizer solution 11-23 00:00: 00 Yes [id number] 3mL Inhale 3 mL every 4 (four) hours as needed for Wheezing, Shortness of Breath or Chest tightness. [facility] ipratropium -albuteroL 0.5 mg-3 mg(2.5 mg base)/3 mL nebulizer solution 11-23 00:00: 00 Yes [id number] 3mL Inhale 3 mL every 4 (four) hours as needed for Wheezing, Shortness of Breath or Chest tightness. [facility] ipratropium -albuteroL 0.5 mg-3 mg(2.5 mg base)/3 mL nebulizer solution 11-23 00:00: 00 Yes [id number] 3mL Inhale 3 mL every 4 (four) hours as needed for Wheezing, Shortness of Breath or Chest tightness. [facility] ipratropium -albuteroL 0.5 mg-3 mg(2.5 mg base)/3 mL nebulizer solution 11-23 00:00: 00 Yes [id number] 3mL Inhale 3 mL every 4 (four) hours as needed for Wheezing, Shortness of Breath or Chest tightness. [facility] ipratropium -albuteroL 0.5 mg-3 mg(2.5 mg base)/3 mL nebulizer solution 11-23 00:00: 00 Yes [id number] 3mL Inhale 3 mL every 4 (four) hours as needed for Wheezing, Shortness of Breath or Chest tightness. [facility] ipratropium -albuteroL 0.5 mg-3 mg(2.5 mg base)/3 mL nebulizer solution 11-23 00:00: 00 Yes [id number] 3mL Inhale 3 mL every 4 (four) hours as needed for Wheezing, Shortness of Breath or Chest tightness. [facility] ipratropium -albuteroL 0.5 mg-3 mg(2.5 mg base)/3 mL nebulizer solution 11-23 00:00: 00 Yes [id number] 3mL Inhale 3 mL every 4 (four) hours as needed for Wheezing, Shortness of Breath or Chest tightness. [facility] ipratropium -albuteroL 0.5 mg-3 mg(2.5 mg base)/3 mL nebulizer solution 11-23 00:00: 00 Yes [id number] 3mL Inhale 3 mL every 4 (four) hours as needed for Wheezing, Shortness of Breath or Chest tightness. [facility] ipratropium -albuteroL 0.5 mg-3 mg(2.5 mg base)/3 mL nebulizer solution 11-23 00:00: 00 Yes [id number] 3mL Inhale 3 mL every 4 (four) hours as needed for Wheezing, Shortness of Breath or Chest tightness. [facility] ipratropium -albuteroL 0.5 mg-3 mg(2.5 mg base)/3 mL nebulizer solution 11-23 00:00: 00 Yes [id number] 3mL Inhale 3 mL every 4 (four) hours as needed for Wheezing, Shortness of Breath or Chest tightness. [facility] ipratropium -albuteroL 0.5 mg-3 mg(2.5 mg base)/3 mL nebulizer solution 11-23 00:00: 00 Yes [id number] 3mL Inhale 3 mL every 4 (four) hours as needed for Wheezing, Shortness of Breath or Chest tightness. [facility] ipratropium -albuteroL 0.5 mg-3 mg(2.5 mg base)/3 mL nebulizer solution 11-23 00:00: 00 Yes [id number] 3mL Inhale 3 mL every 4 (four) hours as needed for Wheezing, Shortness of Breath or Chest tightness. [facility] ipratropium -albuteroL 0.5 mg-3 mg(2.5 mg base)/3 mL nebulizer solution 11-23 00:00: 00 Yes [id number] 3mL Inhale 3 mL every 4 (four) hours as needed for Wheezing, Shortness of Breath or Chest tightness. [facility] ipratropium -albuteroL 0.5 mg-3 mg(2.5 mg base)/3 mL nebulizer solution 11-23 00:00: 00 Yes [id number] 3mL Inhale 3 mL every 4 (four) hours as needed for Wheezing, Shortness of Breath or Chest tightness. [facility] ipratropium -albuteroL 0.5 mg-3 mg(2.5 mg base)/3 mL nebulizer solution 11-23 00:00: 00 Yes [id number] 3mL Inhale 3 mL every 4 (four) hours as needed for Wheezing, Shortness of Breath or Chest tightness. [facility] ipratropium -albuteroL 0.5 mg-3 mg(2.5 mg base)/3 mL nebulizer solution 11-23 00:00: 00 Yes [id number] 3mL Inhale 3 mL every 4 (four) hours as needed for Wheezing, Shortness of Breath or Chest tightness. [facility] ipratropium -albuteroL 0.5 mg-3 mg(2.5 mg base)/3 mL nebulizer solution 11-23 00:00: 00 Yes [id number] 3mL Inhale 3 mL every 4 (four) hours as needed for Wheezing, Shortness of Breath or Chest tightness. [facility] ipratropium -albuteroL 0.5 mg-3 mg(2.5 mg base)/3 mL nebulizer solution 11-23 00:00: 00 Yes [id number] 3mL Inhale 3 mL every 4 (four) hours as needed for Wheezing, Shortness of Breath or Chest tightness. [facility] ipratropium -albuteroL 0.5 mg-3 mg(2.5 mg base)/3 mL nebulizer solution 11-23 00:00: 00 Yes [id number] 3mL Inhale 3 mL every 4 (four) hours as needed for Wheezing, Shortness of Breath or Chest tightness. [facility] ipratropium -albuteroL 0.5 mg-3 mg(2.5 mg base)/3 mL nebulizer solution 11-23 00:00: 00 Yes [id number] 3mL Inhale 3 mL every 4 (four) hours as needed for Wheezing, Shortness of Breath or Chest tightness. [facility] ipratropium -albuteroL 0.5 mg-3 mg(2.5 mg base)/3 mL nebulizer solution 11-23 00:00: 00 Yes [id number] 3mL Inhale 3 mL every 4 (four) hours as needed for Wheezing, Shortness of Breath or Chest tightness. [facility] ipratropium -albuteroL 0.5 mg-3 mg(2.5 mg base)/3 mL nebulizer solution 11-23 00:00: 00 Yes [id number] 3mL Inhale 3 mL every 4 (four) hours as needed for Wheezing, Shortness of Breath or Chest tightness. [facility] ipratropium -albuteroL 0.5 mg-3 mg(2.5 mg base)/3 mL nebulizer solution 11-23 00:00: 00 Yes [id number] 3mL Inhale 3 mL every 4 (four) hours as needed for Wheezing, Shortness of Breath or Chest tightness. [facility] ipratropium -albuteroL 0.5 mg-3 mg(2.5 mg base)/3 mL nebulizer solution 11-23 00:00: 00 Yes [id number] 3mL Inhale 3 mL every 4 (four) hours as needed for Wheezing, Shortness of Breath or Chest tightness. [facility] ipratropium -albuteroL 0.5 mg-3 mg(2.5 mg base)/3 mL nebulizer solution 11-23 00:00: 00 Yes [id number] 3mL Inhale 3 mL every 4 (four) hours as needed for Wheezing, Shortness of Breath or Chest tightness. [facility] ipratropium -albuteroL 0.5 mg-3 mg(2.5 mg base)/3 mL nebulizer solution 11-23 00:00: 00 Yes [id number] 3mL Inhale 3 mL every 4 (four) hours as needed for Wheezing, Shortness of Breath or Chest tightness. [facility] ipratropium -albuteroL 0.5 mg-3 mg(2.5 mg base)/3 mL nebulizer solution 11-23 00:00: 00 Yes [id number] 3mL Inhale 3 mL every 4 (four) hours as needed for Wheezing, Shortness of Breath or Chest tightness. [facility] ipratropium -albuteroL 0.5 mg-3 mg(2.5 mg base)/3 mL nebulizer solution 11-23 00:00: 00 Yes [id number] 3mL Inhale 3 mL every 4 (four) hours as needed for Wheezing, Shortness of Breath or Chest tightness. [facility] ipratropium -albuteroL 0.5 mg-3 mg(2.5 mg base)/3 mL nebulizer solution 11-23 00:00: 00 Yes [id number] 3mL Inhale 3 mL every 4 (four) hours as needed for Wheezing, Shortness of Breath or Chest tightness. [facility] ipratropium -albuteroL 0.5 mg-3 mg(2.5 mg base)/3 mL nebulizer solution 11-23 00:00: 00 Yes [id number] 3mL Inhale 3 mL every 4 (four) hours as needed for Wheezing, Shortness of Breath or Chest tightness. [facility] ipratropium -albuteroL 0.5 mg-3 mg(2.5 mg base)/3 mL nebulizer solution 11-23 00:00: 00 Yes [id number] 3mL Inhale 3 mL every 4 (four) hours as needed for Wheezing, Shortness of Breath or Chest tightness. [facility] ipratropium -albuteroL 0.5 mg-3 mg(2.5 mg base)/3 mL nebulizer solution 11-23 00:00: 00 Yes [id number] 3mL Inhale 3 mL every 4 (four) hours as needed for Wheezing, Shortness of Breath or Chest tightness. [facility] ipratropium -albuteroL 0.5 mg-3 mg(2.5 mg base)/3 mL nebulizer solution 11-23 00:00: 00 Yes [id number] 3mL Inhale 3 mL every 4 (four) hours as needed for Wheezing, Shortness of Breath or Chest tightness. [facility] ipratropium -albuteroL 0.5 mg-3 mg(2.5 mg base)/3 mL nebulizer solution 11-23 00:00: 00 Yes [id number] 3mL Inhale 3 mL every 4 (four) hours as needed for Wheezing, Shortness of Breath or Chest tightness. [facility] ipratropium -albuteroL 0.5 mg-3 mg(2.5 mg base)/3 mL nebulizer solution 11-23 00:00: 00 Yes [id number] 3mL Inhale 3 mL every 4 (four) hours as needed for Wheezing, Shortness of Breath or Chest tightness. [facility] ipratropium -albuteroL 0.5 mg-3 mg(2.5 mg base)/3 mL nebulizer solution 11-23 00:00: 00 Yes [id number] 3mL Inhale 3 mL every 4 (four) hours as needed for Wheezing, Shortness of Breath or Chest tightness. [facility] ipratropium -albuteroL 0.5 mg-3 mg(2.5 mg base)/3 mL nebulizer solution 11-23 00:00: 00 03-02 00:00 :00 No [id number] 3mL Inhale 3 mL every 4 (four) hours as needed for Wheezing, Shortness of Breath or Chest tightness. [facility] ipratropium -albuteroL 0.5 mg-3 mg(2.5 mg base)/3 mL nebulizer solution 11-23 00:00: 00 03-02 00:00 :00 No [id number] 3mL Inhale 3 mL every 4 (four) hours as needed for Wheezing, Shortness of Breath or Chest tightness. [facility] Immunizations Ordered Immunization Name Filled Immunization Name Date Status Comments Source Meningococcal B, OMV 2021-03-06 00:00:[address] [facility] HPV9 2021-03-06 00:00:[address] [facility] Meningococcal Polysaccharide (groups A, C, Y and W-135) conjugate vaccine (MCV4P) 2021-03-06 00:00:[address] [facility] Meningococcal B, OMV 2021-03-06 00:00:[address] [facility] HPV9 2021-03-06 00:00:[address] [facility] Meningococcal Polysaccharide (groups A, C, Y and W-135) conjugate vaccine (MCV4P) 2021-03-06 00:00:[address] [facility] Meningococcal B, OMV 2021-03-06 00:00:[address] [facility] HPV9 2021-03-06 00:00:[address] [facility] Meningococcal Polysaccharide (groups A, C, Y and W-135) conjugate vaccine (MCV4P) 2021-03-06 00:00:[address] [facility] Meningococcal B, OMV 2021-03-06 00:00:[address] [facility] HPV9 2021-03-06 00:00:[address] [facility] Meningococcal Polysaccharide (groups A, C, Y and W-135) conjugate vaccine (MCV4P) 2021-03-06 00:00:[address] [facility] Meningococcal B, OMV 2021-03-06 00:00:[address] [facility] HPV9 2021-03-06 00:00:[address] [facility] Meningococcal Polysaccharide (groups A, C, Y and W-135) conjugate vaccine (MCV4P) 2021-03-06 00:00:[address] [facility] Meningococcal B, OMV 2021-03-06 00:00:[address] [facility] HPV9 2021-03-06 00:00:[address] [facility] Meningococcal Polysaccharide (groups A, C, Y and W-135) conjugate vaccine (MCV4P) 2021-03-06 00:00:[address] [facility] Meningococcal B, OMV 2021-03-06 00:00:[address] [facility] HPV9 2021-03-06 00:00:[address] [facility] Meningococcal Polysaccharide (groups A, C, Y and W-135) conjugate vaccine (MCV4P) 2021-03-06 00:00:[address] [facility] Meningococcal B, OMV 2021-03-06 00:00:[address] [facility] HPV9 2021-03-06 00:00:[address] [facility] Meningococcal Polysaccharide (groups A, C, Y and W-135) conjugate vaccine (MCV4P) 2021-03-06 00:00:[address] [facility] Meningococcal B, OMV 2021-03-06 00:00:[address] [facility] HPV9 2021-03-06 00:00:[address] [facility] Meningococcal Polysaccharide (groups A, C, Y and W-135) conjugate vaccine (MCV4P) 2021-03-06 00:00:[address] [facility] Meningococcal B, OMV 2021-03-06 00:00:[address] [facility] HPV9 2021-03-06 00:00:[address] [facility] Meningococcal Polysaccharide (groups A, C, Y and W-135) conjugate vaccine (MCV4P) 2021-03-06 00:00:[address] [facility] Meningococcal B, OMV 2021-03-06 00:00:[address] [facility] HPV9 2021-03-06 00:00:[address] [facility] Meningococcal Polysaccharide (groups A, C, Y and W-135) conjugate vaccine (MCV4P) 2021-03-06 00:00:[address] [facility] Meningococcal B, OMV 2021-03-06 00:00:[address] [facility] HPV9 2021-03-06 00:00:[address] [facility] Meningococcal Polysaccharide (groups A, C, Y and W-135) conjugate vaccine (MCV4P) 2021-03-06 00:00:[address] [facility] Meningococcal B, OMV 2021-03-06 00:00:[address] [facility] HPV9 2021-03-06 00:00:[address] [facility] Meningococcal Polysaccharide (groups A, C, Y and W-135) conjugate vaccine (MCV4P) 2021-03-06 00:00:[address] [facility] Meningococcal B, OMV 2021-03-06 00:00:[address] [facility] HPV9 2021-03-06 00:00:[address] [facility] Meningococcal Polysaccharide (groups A, C, Y and W-135) conjugate vaccine (MCV4P) 2021-03-06 00:00:[address] [facility] Meningococcal B, OMV 2021-03-06 00:00:[address] [facility] HPV9 2021-03-06 00:00:[address] [facility] Meningococcal Polysaccharide (groups A, C, Y and W-135) conjugate vaccine (MCV4P) 2021-03-06 00:00:[address] [facility] Meningococcal B, OMV 2021-03-06 00:00:[address] [facility] HPV9 2021-03-06 00:00:[address] [facility] Meningococcal Polysaccharide (groups A, C, Y and W-135) conjugate vaccine (MCV4P) 2021-03-06 00:00:[address] [facility] Meningococcal B, OMV 2021-03-06 00:00:[address] [facility] HPV9 2021-03-06 00:00:[address] [facility] Meningococcal Polysaccharide (groups A, C, Y and W-135) conjugate vaccine (MCV4P) 2021-03-06 00:00:[address] [facility] Meningococcal B, OMV 2021-03-06 00:00:[address] [facility] HPV9 2021-03-06 00:00:[address] [facility] Meningococcal Polysaccharide (groups A, C, Y and W-135) conjugate vaccine (MCV4P) 2021-03-06 00:00:[address] [facility] Meningococcal B, OMV 2021-03-06 00:00:[address] [facility] HPV9 2021-03-06 00:00:[address] [facility] Meningococcal Polysaccharide (groups A, C, Y and W-135) conjugate vaccine (MCV4P) 2021-03-06 00:00:[address] [facility] HPV 2016-10-22 00:00:[address] [facility] Meningococcal Polysaccharide (groups A, C, Y and W-135) conjugate vaccine (MCV4P) 2016-10-22 00:00:[address] [facility] TDAP 2016-10-22 00:00:[address] [facility] HPV 2016-10-22 00:00:[address] [facility] Meningococcal Polysaccharide (groups A, C, Y and W-135) conjugate vaccine (MCV4P) 2016-10-22 00:00:[address] [facility] TDAP 2016-10-22 00:00:[address] [facility] HPV 2016-10-22 00:00:[address] [facility] Meningococcal Polysaccharide (groups A, C, Y and W-135) conjugate vaccine (MCV4P) 2016-10-22 00:00:[address] [facility] TDAP 2016-10-22 00:00:[address] [facility] HPV 2016-10-22 00:00:[address] [facility] Meningococcal Polysaccharide (groups A, C, Y and W-135) conjugate vaccine (MCV4P) 2016-10-22 00:00:[address] [facility] TDAP 2016-10-22 00:00:[address] [facility] HPV 2016-10-22 00:00:[address] [facility] Meningococcal Polysaccharide (groups A, C, Y and W-135) conjugate vaccine (MCV4P) 2016-10-22 00:00:[address] [facility] TDAP 2016-10-22 00:00:[address] [facility] HPV 2016-10-22 00:00:[address] [facility] Meningococcal Polysaccharide (groups A, C, Y and W-135) conjugate vaccine (MCV4P) 2016-10-22 00:00:[address] [facility] TDAP 2016-10-22 00:00:[address] [facility] HPV 2016-10-22 00:00:[address] [facility] Meningococcal Polysaccharide (groups A, C, Y and W-135) conjugate vaccine (MCV4P) 2016-10-22 00:00:[address] [facility] TDAP 2016-10-22 00:00:[address] [facility] HPV 2016-10-22 00:00:[address] [facility] Meningococcal Polysaccharide (groups A, C, Y and W-135) conjugate vaccine (MCV4P) 2016-10-22 00:00:[address] [facility] TDAP 2016-10-22 00:00:[address] [facility] HPV 2016-10-22 00:00:[address] [facility] Meningococcal Polysaccharide (groups A, C, Y and W-135) conjugate vaccine (MCV4P) 2016-10-22 00:00:[address] [facility] TDAP 2016-10-22 00:00:[address] [facility] HPV 2016-10-22 00:00:[address] [facility] Meningococcal Polysaccharide (groups A, C, Y and W-135) conjugate vaccine (MCV4P) 2016-10-22 00:00:[address] [facility] TDAP 2016-10-22 00:00:[address] [facility] HPV 2016-10-22 00:00:[address] [facility] Meningococcal Polysaccharide (groups A, C, Y and W-135) conjugate vaccine (MCV4P) 2016-10-22 00:00:[address] [facility] TDAP 2016-10-22 00:00:[address] [facility] HPV 2016-10-22 00:00:[address] [facility] Meningococcal Polysaccharide (groups A, C, Y and W-135) conjugate vaccine (MCV4P) 2016-10-22 00:00:[address] [facility] TDAP 2016-10-22 00:00:[address] [facility] HPV 2016-10-22 00:00:[address] [facility] Meningococcal Polysaccharide (groups A, C, Y and W-135) conjugate vaccine (MCV4P) 2016-10-22 00:00:[address] [facility] TDAP 2016-10-22 00:00:[address] [facility] HPV 2016-10-22 00:00:[address] [facility] Meningococcal Polysaccharide (groups A, C, Y and W-135) conjugate vaccine (MCV4P) 2016-10-22 00:00:[address] [facility] TDAP 2016-10-22 00:00:[address] [facility] HPV 2016-10-22 00:00:[address] [facility] Meningococcal Polysaccharide (groups A, C, Y and W-135) conjugate vaccine (MCV4P) 2016-10-22 00:00:[address] [facility] TDAP 2016-10-22 00:00:[address] [facility] HPV 2016-10-22 00:00:[address] [facility] Meningococcal Polysaccharide (groups A, C, Y and W-135) conjugate vaccine (MCV4P) 2016-10-22 00:00:[address] [facility] TDAP 2016-10-22 00:00:[address] [facility] HPV 2016-10-22 00:00:[address] [facility] Meningococcal Polysaccharide (groups A, C, Y and W-135) conjugate vaccine (MCV4P) 2016-10-22 00:00:[address] [facility] TDAP 2016-10-22 00:00:[address] [facility] HPV 2016-10-22 00:00:[address] [facility] Meningococcal Polysaccharide (groups A, C, Y and W-135) conjugate vaccine (MCV4P) 2016-10-22 00:00:[address] [facility] TDAP 2016-10-22 00:00:[address] [facility] HPV 2016-10-22 00:00:[address] [facility] Meningococcal Polysaccharide (groups A, C, Y and W-135) conjugate vaccine (MCV4P) 2016-10-22 00:00:[address] [facility] TDAP 2016-10-22 00:00:[address] [facility] Varicella (varivax)(chicken pox) 2008-06-26 00:00:[address] [facility] Varicella (varivax)(chicken pox) 2008-06-26 00:00:[address] [facility] Varicella (varivax)(chicken pox) 2008-06-26 00:00:[address] [facility] Varicella (varivax)(chicken pox) 2008-06-26 00:00:[address] [facility] Varicella (varivax)(chicken pox) 2008-06-26 00:00:[address] [facility] Varicella (varivax)(chicken pox) 2008-06-26 00:00:[address] [facility] Varicella (varivax)(chicken pox) 2008-06-26 00:00:[address] [facility] Varicella (varivax)(chicken pox) 2008-06-26 00:00:[address] [facility] Varicella (varivax)(chicken pox) 2008-06-26 00:00:[address] [facility] Varicella (varivax)(chicken pox) 2008-06-26 00:00:[address] [facility] Varicella (varivax)(chicken pox) 2008-06-26 00:00:[address] [facility] Varicella (varivax)(chicken pox) 2008-06-26 00:00:[address] [facility] Varicella (varivax)(chicken pox) 2008-06-26 00:00:[address] [facility] Varicella (varivax)(chicken pox) 2008-06-26 00:00:[address] [facility] Varicella (varivax)(chicken pox) 2008-06-26 00:00:[address] [facility] Varicella (varivax)(chicken pox) 2008-06-26 00:00:[address] [facility] Varicella (varivax)(chicken pox) 2008-06-26 00:00:[address] [facility] Varicella (varivax)(chicken pox) 2008-06-26 00:00:[address] [facility] Varicella (varivax)(chicken pox) 2008-06-26 00:00:[address] [facility] DTAP 2007-12-22 00:00:[address] [facility] HEPATITIS A 2007-12-22 00:00:[address] [facility] MMR 2007-12-22 00:00:[address] [facility] Polio (IPV/OPV) 2007-12-22 00:00:[address] [facility] DTAP 2007-12-22 00:00:[address] [facility] HEPATITIS A 2007-12-22 00:00:[address] [facility] MMR 2007-12-22 00:00:[address] [facility] Polio (IPV/OPV) 2007-12-22 00:00:[address] [facility] DTAP 2007-12-22 00:00:[address] [facility] HEPATITIS A 2007-12-22 00:00:[address] [facility] MMR 2007-12-22 00:00:[address] [facility] Polio (IPV/OPV) 2007-12-22 00:00:[address] [facility] DTAP 2007-12-22 00:00:[address] [facility] HEPATITIS A 2007-12-22 00:00:[address] [facility] MMR 2007-12-22 00:00:[address] [facility] Polio (IPV/OPV) 2007-12-22 00:00:[address] [facility] DTAP 2007-12-22 00:00:[address] [facility] HEPATITIS A 2007-12-22 00:00:[address] [facility] MMR 2007-12-22 00:00:[address] [facility] Polio (IPV/OPV) 2007-12-22 00:00:[address] [facility] DTAP 2007-12-22 00:00:[address] [facility] HEPATITIS A 2007-12-22 00:00:[address] [facility] MMR 2007-12-22 00:00:[address] [facility] Polio (IPV/OPV) 2007-12-22 00:00:[address] [facility] DTAP 2007-12-22 00:00:[address] [facility] HEPATITIS A 2007-12-22 00:00:[address] [facility] MMR 2007-12-22 00:00:[address] [facility] Polio (IPV/OPV) 2007-12-22 00:00:[address] [facility] DTAP 2007-12-22 00:00:[address] [facility] HEPATITIS A 2007-12-22 00:00:[address] [facility] MMR 2007-12-22 00:00:[address] [facility] Polio (IPV/OPV) 2007-12-22 00:00:[address] [facility] DTAP 2007-12-22 00:00:[address] [facility] HEPATITIS A 2007-12-22 00:00:[address] [facility] MMR 2007-12-22 00:00:[address] [facility] Polio (IPV/OPV) 2007-12-22 00:00:[address] [facility] DTAP 2007-12-22 00:00:[address] [facility] HEPATITIS A 2007-12-22 00:00:[address] [facility] MMR 2007-12-22 00:00:[address] [facility] Polio (IPV/OPV) 2007-12-22 00:00:[address] [facility] DTAP 2007-12-22 00:00:[address] [facility] HEPATITIS A 2007-12-22 00:00:[address] [facility] MMR 2007-12-22 00:00:[address] [facility] Polio (IPV/OPV) 2007-12-22 00:00:[address] [facility] DTAP 2007-12-22 00:00:[address] [facility] HEPATITIS A 2007-12-22 00:00:[address] [facility] MMR 2007-12-22 00:00:[address] [facility] Polio (IPV/OPV) 2007-12-22 00:00:[address] [facility] DTAP 2007-12-22 00:00:[address] [facility] HEPATITIS A 2007-12-22 00:00:[address] [facility] MMR 2007-12-22 00:00:[address] [facility] Polio (IPV/OPV) 2007-12-22 00:00:[address] [facility] DTAP 2007-12-22 00:00:[address] [facility] HEPATITIS A 2007-12-22 00:00:[address] [facility] MMR 2007-12-22 00:00:[address] [facility] Polio (IPV/OPV) 2007-12-22 00:00:[address] [facility] DTAP 2007-12-22 00:00:[address] [facility] HEPATITIS A 2007-12-22 00:00:[address] [facility] MMR 2007-12-22 00:00:[address] [facility] Polio (IPV/OPV) 2007-12-22 00:00:[address] [facility] DTAP 2007-12-22 00:00:[address] [facility] HEPATITIS A 2007-12-22 00:00:[address] [facility] MMR 2007-12-22 00:00:[address] [facility] Polio (IPV/OPV) 2007-12-22 00:00:[address] [facility] DTAP 2007-12-22 00:00:[address] [facility] HEPATITIS A 2007-12-22 00:00:[address] [facility] MMR 2007-12-22 00:00:[address] [facility] Polio (IPV/OPV) 2007-12-22 00:00:[address] [facility] DTAP 2007-12-22 00:00:[address] [facility] HEPATITIS A 2007-12-22 00:00:[address] [facility] MMR 2007-12-22 00:00:[address] [facility] Polio (IPV/OPV) 2007-12-22 00:00:[address] [facility] DTAP 2007-12-22 00:00:[address] [facility] HEPATITIS A 2007-12-22 00:00:[address] [facility] MMR 2007-12-22 00:00:[address] [facility] Polio (IPV/OPV) 2007-12-22 00:00:[address] [facility] HEPATITIS A 2006-04-16 00:00:[address] [facility] HEPATITIS A 2006-04-16 00:00:[address] [facility] HEPATITIS A 2006-04-16 00:00:[address] [facility] HEPATITIS A 2006-04-16 00:00:[address] [facility] HEPATITIS A 2006-04-16 00:00:[address] [facility] HEPATITIS A 2006-04-16 00:00:[address] [facility] HEPATITIS A 2006-04-16 00:00:[address] [facility] HEPATITIS A 2006-04-16 00:00:[address] [facility] HEPATITIS A 2006-04-16 00:00:[address] [facility] HEPATITIS A 2006-04-16 00:00:[address] [facility] HEPATITIS A 2006-04-16 00:00:[address] [facility] HEPATITIS A 2006-04-16 00:00:[address] [facility] HEPATITIS A 2006-04-16 00:00:[address] [facility] HEPATITIS A 2006-04-16 00:00:[address] [facility] HEPATITIS A 2006-04-16 00:00:[address] [facility] HEPATITIS A 2006-04-16 00:00:[address] [facility] HEPATITIS A 2006-04-16 00:00:[address] [facility] HEPATITIS A 2006-04-16 00:00:[address] [facility] HEPATITIS A 2006-04-16 00:00:[address] [facility] DTAP 2005-11-03 00:00:[address] [facility] DTAP 2005-11-03 00:00:[address] [facility] DTAP 2005-11-03 00:00:[address] [facility] DTAP 2005-11-03 00:00:[address] [facility] DTAP 2005-11-03 00:00:[address] [facility] DTAP 2005-11-03 00:00:[address] [facility] DTAP 2005-11-03 00:00:[address] [facility] DTAP 2005-11-03 00:00:[address] [facility] DTAP 2005-11-03 00:00:[address] [facility] DTAP 2005-11-03 00:00:[address] [facility] DTAP 2005-11-03 00:00:[address] [facility] DTAP 2005-11-03 00:00:[address] [facility] DTAP 2005-11-03 00:00:[address] [facility] DTAP 2005-11-03 00:00:[address] [facility] DTAP 2005-11-03 00:00:[address] [facility] DTAP 2005-11-03 00:00:[address] [facility] DTAP 2005-11-03 00:00:[address] [facility] DTAP 2005-11-03 00:00:[address] [facility] DTAP 2005-11-03 00:00:[address] [facility] DTAP 2005-01-09 00:00:[address] [facility] HIB 3 Dose Schedule 2005-01-09 00:00:[address] [facility] MMR 2005-01-09 00:00:[address] [facility] Polio (IPV/OPV) 2005-01-09 00:00:[address] [facility] Varicella (varivax)(chicken pox) 2005-01-09 00:00:[address] [facility] Pneumococcal 7 Conjugate, PCV7 (Prevnar7) 2005-01-09 00:00:[address] [facility] DTAP 2005-01-09 00:00:[address] [facility] HIB 3 Dose Schedule 2005-01-09 00:00:[address] [facility] MMR 2005-01-09 00:00:[address] [facility] Polio (IPV/OPV) 2005-01-09 00:00:[address] [facility] Varicella (varivax)(chicken pox) 2005-01-09 00:00:[address] [facility] Pneumococcal 7 Conjugate, PCV7 (Prevnar7) 2005-01-09 00:00:[address] [facility] DTAP 2005-01-09 00:00:[address] [facility] HIB 3 Dose Schedule 2005-01-09 00:00:[address] [facility] MMR 2005-01-09 00:00:[address] [facility] Polio (IPV/OPV) 2005-01-09 00:00:[address] [facility] Varicella (varivax)(chicken pox) 2005-01-09 00:00:[address] [facility] Pneumococcal 7 Conjugate, PCV7 (Prevnar7) 2005-01-09 00:00:[address] [facility] DTAP 2005-01-09 00:00:[address] [facility] HIB 3 Dose Schedule 2005-01-09 00:00:[address] [facility] MMR 2005-01-09 00:00:[address] [facility] Polio (IPV/OPV) 2005-01-09 00:00:[address] [facility] Varicella (varivax)(chicken pox) 2005-01-09 00:00:[address] [facility] Pneumococcal 7 Conjugate, PCV7 (Prevnar7) 2005-01-09 00:00:[address] [facility] DTAP 2005-01-09 00:00:[address] [facility] HIB 3 Dose Schedule 2005-01-09 00:00:[address] [facility] MMR 2005-01-09 00:00:[address] [facility] Polio (IPV/OPV) 2005-01-09 00:00:[address] [facility] Varicella (varivax)(chicken pox) 2005-01-09 00:00:[address] [facility] Pneumococcal 7 Conjugate, PCV7 (Prevnar7) 2005-01-09 00:00:[address] [facility] DTAP 2005-01-09 00:00:[address] [facility] HIB 3 Dose Schedule 2005-01-09 00:00:[address] [facility] MMR 2005-01-09 00:00:[address] [facility] Polio (IPV/OPV) 2005-01-09 00:00:[address] [facility] Varicella (varivax)(chicken pox) 2005-01-09 00:00:[address] [facility] Pneumococcal 7 Conjugate, PCV7 (Prevnar7) 2005-01-09 00:00:[address] [facility] DTAP 2005-01-09 00:00:[address] [facility] HIB 3 Dose Schedule 2005-01-09 00:00:[address] [facility] MMR 2005-01-09 00:00:[address] [facility] Polio (IPV/OPV) 2005-01-09 00:00:[address] [facility] Varicella (varivax)(chicken pox) 2005-01-09 00:00:[address] [facility] Pneumococcal 7 Conjugate, PCV7 (Prevnar7) 2005-01-09 00:00:[address] [facility] DTAP 2005-01-09 00:00:[address] [facility] HIB 3 Dose Schedule 2005-01-09 00:00:[address] [facility] MMR 2005-01-09 00:00:[address] [facility] Polio (IPV/OPV) 2005-01-09 00:00:[address] [facility] Varicella (varivax)(chicken pox) 2005-01-09 00:00:[address] [facility] Pneumococcal 7 Conjugate, PCV7 (Prevnar7) 2005-01-09 00:00:[address] [facility] DTAP 2005-01-09 00:00:[address] [facility] HIB 3 Dose Schedule 2005-01-09 00:00:[address] [facility] MMR 2005-01-09 00:00:[address] [facility] Polio (IPV/OPV) 2005-01-09 00:00:[address] [facility] Varicella (varivax)(chicken pox) 2005-01-09 00:00:[address] [facility] Pneumococcal 7 Conjugate, PCV7 (Prevnar7) 2005-01-09 00:00:[address] [facility] DTAP 2005-01-09 00:00:[address] [facility] HIB 3 Dose Schedule 2005-01-09 00:00:[address] [facility] MMR 2005-01-09 00:00:[address] [facility] Polio (IPV/OPV) 2005-01-09 00:00:[address] [facility] Varicella (varivax)(chicken pox) 2005-01-09 00:00:[address] [facility] Pneumococcal 7 Conjugate, PCV7 (Prevnar7) 2005-01-09 00:00:[address] [facility] DTAP 2005-01-09 00:00:[address] [facility] HIB 3 Dose Schedule 2005-01-09 00:00:[address] [facility] MMR 2005-01-09 00:00:[address] [facility] Polio (IPV/OPV) 2005-01-09 00:00:[address] [facility] Varicella (varivax)(chicken pox) 2005-01-09 00:00:[address] [facility] Pneumococcal 7 Conjugate, PCV7 (Prevnar7) 2005-01-09 00:00:[address] [facility] DTAP 2005-01-09 00:00:[address] [facility] HIB 3 Dose Schedule 2005-01-09 00:00:[address] [facility] MMR 2005-01-09 00:00:[address] [facility] Polio (IPV/OPV) 2005-01-09 00:00:[address] [facility] Varicella (varivax)(chicken pox) 2005-01-09 00:00:[address] [facility] Pneumococcal 7 Conjugate, PCV7 (Prevnar7) 2005-01-09 00:00:[address] [facility] DTAP 2005-01-09 00:00:[address] [facility] HIB 3 Dose Schedule 2005-01-09 00:00:[address] [facility] MMR 2005-01-09 00:00:[address] [facility] Polio (IPV/OPV) 2005-01-09 00:00:[address] [facility] Varicella (varivax)(chicken pox) 2005-01-09 00:00:[address] [facility] Pneumococcal 7 Conjugate, PCV7 (Prevnar7) 2005-01-09 00:00:[address] [facility] DTAP 2005-01-09 00:00:[address] [facility] HIB 3 Dose Schedule 2005-01-09 00:00:[address] [facility] MMR 2005-01-09 00:00:[address] [facility] Polio (IPV/OPV) 2005-01-09 00:00:[address] [facility] Varicella (varivax)(chicken pox) 2005-01-09 00:00:[address] [facility] Pneumococcal 7 Conjugate, PCV7 (Prevnar7) 2005-01-09 00:00:[address] [facility] DTAP 2005-01-09 00:00:[address] [facility] HIB 3 Dose Schedule 2005-01-09 00:00:[address] [facility] MMR 2005-01-09 00:00:[address] [facility] Polio (IPV/OPV) 2005-01-09 00:00:[address] [facility] Varicella (varivax)(chicken pox) 2005-01-09 00:00:[address] [facility] Pneumococcal 7 Conjugate, PCV7 (Prevnar7) 2005-01-09 00:00:[address] [facility] DTAP 2005-01-09 00:00:[address] [facility] HIB 3 Dose Schedule 2005-01-09 00:00:[address] [facility] MMR 2005-01-09 00:00:[address] [facility] Polio (IPV/OPV) 2005-01-09 00:00:[address] [facility] Varicella (varivax)(chicken pox) 2005-01-09 00:00:[address] [facility] Pneumococcal 7 Conjugate, PCV7 (Prevnar7) 2005-01-09 00:00:[address] [facility] DTAP 2005-01-09 00:00:[address] [facility] HIB 3 Dose Schedule 2005-01-09 00:00:[address] [facility] MMR 2005-01-09 00:00:[address] [facility] Polio (IPV/OPV) 2005-01-09 00:00:[address] [facility] Varicella (varivax)(chicken pox) 2005-01-09 00:00:[address] [facility] Pneumococcal 7 Conjugate, PCV7 (Prevnar7) 2005-01-09 00:00:[address] [facility] DTAP 2005-01-09 00:00:[address] [facility] HIB 3 Dose Schedule 2005-01-09 00:00:[address] [facility] MMR 2005-01-09 00:00:[address] [facility] Polio (IPV/OPV) 2005-01-09 00:00:[address] [facility] Varicella (varivax)(chicken pox) 2005-01-09 00:00:[address] [facility] Pneumococcal 7 Conjugate, PCV7 (Prevnar7) 2005-01-09 00:00:[address] [facility] DTAP 2005-01-09 00:00:[address] [facility] HIB 3 Dose Schedule 2005-01-09 00:00:[address] [facility] MMR 2005-01-09 00:00:[address] [facility] Polio (IPV/OPV) 2005-01-09 00:00:[address] [facility] Varicella (varivax)(chicken pox) 2005-01-09 00:00:[address] [facility] Pneumococcal 7 Conjugate, PCV7 (Prevnar7) 2005-01-09 00:00:[address] [facility] HIB 3 Dose Schedule 2003 00:00:[address] [facility] Pneumococcal 7 Conjugate, PCV7 (Prevnar7) 2003 00:00:[address] [facility] HIB 3 Dose Schedule 2003 00:00:[address] [facility] Pneumococcal 7 Conjugate, PCV7 (Prevnar7) 2003 00:00:[address] [facility] HIB 3 Dose Schedule 2003 00:00:[address] [facility] Pneumococcal 7 Conjugate, PCV7 (Prevnar7) 2003 00:00:[address] [facility] HIB 3 Dose Schedule 2003 00:00:[address] [facility] Pneumococcal 7 Conjugate, PCV7 (Prevnar7) 2003 00:00:[address] [facility] HIB 3 Dose Schedule 2003 00:00:[address] [facility] Pneumococcal 7 Conjugate, PCV7 (Prevnar7) 2003 00:00:[address] [facility] HIB 3 Dose Schedule 2003 00:00:[address] [facility] Pneumococcal 7 Conjugate, PCV7 (Prevnar7) 2003 00:00:[address] [facility] HIB 3 Dose Schedule 2003 00:00:[address] [facility] Pneumococcal 7 Conjugate, PCV7 (Prevnar7) 2003 00:00:[address] [facility] HIB 3 Dose Schedule 2003 00:00:[address] [facility] Pneumococcal 7 Conjugate, PCV7 (Prevnar7) 2003 00:00:[address] [facility] HIB 3 Dose Schedule 2003 00:00:[address] [facility] Pneumococcal 7 Conjugate, PCV7 (Prevnar7) 2003 00:00:[address] [facility] HIB 3 Dose Schedule 2003 00:00:[address] [facility] Pneumococcal 7 Conjugate, PCV7 (Prevnar7) 2003 00:00:[address] [facility] HIB 3 Dose Schedule 2003 00:00:[address] [facility] Pneumococcal 7 Conjugate, PCV7 (Prevnar7) 2003 00:00:[address] [facility] HIB 3 Dose Schedule 2003 00:00:[address] [facility] Pneumococcal 7 Conjugate, PCV7 (Prevnar7) 2003 00:00:[address] [facility] HIB 3 Dose Schedule 2003 00:00:[address] [facility] Pneumococcal 7 Conjugate, PCV7 (Prevnar7) 2003 00:00:[address] [facility] HIB 3 Dose Schedule 2003 00:00:[address] [facility] Pneumococcal 7 Conjugate, PCV7 (Prevnar7) 2003 00:00:[address] [facility] HIB 3 Dose Schedule 2003 00:00:[address] [facility] Pneumococcal 7 Conjugate, PCV7 (Prevnar7) 2003 00:00:[address] [facility] HIB 3 Dose Schedule 2003 00:00:[address] [facility] Pneumococcal 7 Conjugate, PCV7 (Prevnar7) 2003 00:00:[address] [facility] HIB 3 Dose Schedule 2003 00:00:[address] [facility] Pneumococcal 7 Conjugate, PCV7 (Prevnar7) 2003 00:00:[address] [facility] HIB 3 Dose Schedule 2003 00:00:[address] [facility] Pneumococcal 7 Conjugate, PCV7 (Prevnar7) 2003 00:00:[address] [facility] HIB 3 Dose Schedule 2003 00:00:[address] [facility] Pneumococcal 7 Conjugate, PCV7 (Prevnar7) 2003 00:00:[address] [facility] Pediarix (dtap/hep B/ipv) 2003 00:00:[address] [facility] Pediarix (dtap/hep B/ipv) 2003 00:00:[address] [facility] Pediarix (dtap/hep B/ipv) 2003 00:00:[address] [facility] Pediarix (dtap/hep B/ipv) 2003 00:00:[address] [facility] Pediarix (dtap/hep B/ipv) 2003 00:00:[address] [facility] Pediarix (dtap/hep B/ipv) 2003 00:00:[address] [facility] Pediarix (dtap/hep B/ipv) 2003 00:00:[address] [facility] Pediarix (dtap/hep B/ipv) 2003 00:00:[address] [facility] Pediarix (dtap/hep B/ipv) 2003 00:00:[address] [facility] Pediarix (dtap/hep B/ipv) 2003 00:00:[address] [facility] Pediarix (dtap/hep B/ipv) 2003 00:00:[address] [facility] Pediarix (dtap/hep B/ipv) 2003 00:00:[address] [facility] Pediarix (dtap/hep B/ipv) 2003 00:00:[address] [facility] Pediarix (dtap/hep B/ipv) 2003 00:00:[address] [facility] Pediarix (dtap/hep B/ipv) 2003 00:00:[address] [facility] Pediarix (dtap/hep B/ipv) 2003 00:00:[address] [facility] Pediarix (dtap/hep B/ipv) 2003 00:00:[address] [facility] Pediarix (dtap/hep B/ipv) 2003 00:00:[address] [facility] Pediarix (dtap/hep B/ipv) 2003 00:00:[address] [facility] Pneumococcal 7 Conjugate, PCV7 (Prevnar7) 2003 00:00:[address] [facility] Pneumococcal 7 Conjugate, PCV7 (Prevnar7) 2003 00:00:[address] [facility] Pneumococcal 7 Conjugate, PCV7 (Prevnar7) 2003 00:00:[address] [facility] Pneumococcal 7 Conjugate, PCV7 (Prevnar7) 2003 00:00:[address] [facility] Pneumococcal 7 Conjugate, PCV7 (Prevnar7) 2003 00:00:[address] [facility] Pneumococcal 7 Conjugate, PCV7 (Prevnar7) 2003 00:00:[address] [facility] Pneumococcal 7 Conjugate, PCV7 (Prevnar7) 2003 00:00:[address] [facility] Pneumococcal 7 Conjugate, PCV7 (Prevnar7) 2003 00:00:[address] [facility] Pneumococcal 7 Conjugate, PCV7 (Prevnar7) 2003 00:00:[address] [facility] HIB 4 Dose Schedule 2003 00:00:[address] [facility] Hep B, Adol or Pedi Dosage 2003 00:00:[address] [facility] Pediarix (dtap/hep B/ipv) 2003 00:00:[address] [facility] Pneumococcal 7 Conjugate, PCV7 (Prevnar7) 2003 00:00:[address] [facility] Pneumococcal 7 Conjugate, PCV7 (Prevnar7) 2003 00:00:[address] [facility] HIB 4 Dose Schedule 2003 00:00:[address] [facility] Hep B, Adol or Pedi Dosage 2003 00:00:[address] [facility] Pediarix (dtap/hep B/ipv) 2003 00:00:[address] [facility] Pneumococcal 7 Conjugate, PCV7 (Prevnar7) 2003 00:00:[address] [facility] Pneumococcal 7 Conjugate, PCV7 (Prevnar7) 2003 00:00:[address] [facility] HIB 4 Dose Schedule 2003 00:00:[address] [facility] Hep B, Adol or Pedi Dosage 2003 00:00:[address] [facility] Pediarix (dtap/hep B/ipv) 2003 00:00:[address] [facility] Pneumococcal 7 Conjugate, PCV7 (Prevnar7) 2003 00:00:[address] [facility] Pneumococcal 7 Conjugate, PCV7 (Prevnar7) 2003 00:00:[address] [facility] HIB 4 Dose Schedule 2003 00:00:[address] [facility] Hep B, Adol or Pedi Dosage 2003 00:00:[address] [facility] Pediarix (dtap/hep B/ipv) 2003 00:00:[address] [facility] Pneumococcal 7 Conjugate, PCV7 (Prevnar7) 2003 00:00:[address] [facility] Pneumococcal 7 Conjugate, PCV7 (Prevnar7) 2003 00:00:[address] [facility] Pneumococcal 7 Conjugate, PCV7 (Prevnar7) 2003 00:00:[address] [facility] Pneumococcal 7 Conjugate, PCV7 (Prevnar7) 2003 00:00:[address] [facility] Pneumococcal 7 Conjugate, PCV7 (Prevnar7) 2003 00:00:[address] [facility] Pneumococcal 7 Conjugate, PCV7 (Prevnar7) 2003 00:00:[address] [facility] Pneumococcal 7 Conjugate, PCV7 (Prevnar7) 2003 00:00:[address] [facility] Pneumococcal 7 Conjugate, PCV7 (Prevnar7) 2003 00:00:[address] [facility] Hep B, Adol or Pedi Dosage 2003 00:00:[address] [facility] Hep B, Adol or Pedi Dosage 2003 00:00:[address] [facility] Hep B, Adol or Pedi Dosage 2003 00:00:[address] [facility] Hep B, Adol or Pedi Dosage 2003 00:00:[address] [facility] DTAP Unknown Completed [facility] DTAP Unknown Completed [facility] DTAP Unknown Completed [facility] HIB 3 Dose Schedule Unknown Completed [facility] HIB 3 Dose Schedule Unknown Completed [facility] HEPATITIS A Unknown Completed [facility] HEPATITIS A Unknown Completed [facility] HPV Unknown Completed [facility] Meningococcal Polysaccharide (groups A, C, Y and W-135) conjugate vaccine (MCV4P) Unknown Completed [facility] MMR Unknown Completed [facility] MMR Unknown Completed [facility] Pediarix (dtap/hep B/ipv) Unknown Completed [facility] Polio (IPV/OPV) Unknown Com[facility] Polio (IPV/OPV) Unknown Com[facility] TDAP Unknown Completed [facility] Varicella (varivax)(chicken pox) Unknown Completed [facility] Varicella (varivax)(chicken pox) Unknown Completed [facility] Pneumococcal 7 Conjugate, PCV7 (Prevnar7) Unknown Completed [facility] Pneumococcal 7 Conjugate, PCV7 (Prevnar7) Unknown Completed [facility] Pneumococcal 7 Conjugate, PCV7 (Prevnar7) Unknown Completed [facility] Meningococcal B, OMV Unknown Completed [facility] HPV9 Unknown Completed [facility] Meningococcal Polysaccharide (groups A, C, Y and W-135) conjugate vaccine (MCV4P) Unknown Completed [facility] DTAP Unknown Completed [facility] DTAP Unknown Completed [facility] DTAP Unknown Completed [facility] HIB 3 Dose Schedule Unknown Completed [facility] HIB 3 Dose Schedule Unknown Completed [facility] HEPATITIS A Unknown Completed [facility] HEPATITIS A Unknown Completed [facility] HPV Unknown Completed [facility] Meningococcal Polysaccharide (groups A, C, Y and W-135) conjugate vaccine (MCV4P) Unknown Completed [facility] MMR Unknown Completed [facility] MMR Unknown Completed [facility] Pediarix (dtap/hep B/ipv) Unknown Completed [facility] Polio (IPV/OPV) Unknown Com[facility] Polio (IPV/OPV) Unknown Com[facility] TDAP Unknown Completed [facility] Varicella (varivax)(chicken pox) Unknown Completed [facility] Varicella (varivax)(chicken pox) Unknown Completed [facility] Pneumococcal 7 Conjugate, PCV7 (Prevnar7) Unknown Completed [facility] Pneumococcal 7 Conjugate, PCV7 (Prevnar7) Unknown Completed [facility] Pneumococcal 7 Conjugate, PCV7 (Prevnar7) Unknown Completed [facility] Meningococcal B, OMV Unknown Completed [facility] HPV9 Unknown Completed [facility] Meningococcal Polysaccharide (groups A, C, Y and W-135) conjugate vaccine (MCV4P) Unknown Completed [facility] TDAP Unknown Completed [facility] DTAP Unknown Completed [facility] DTAP Unknown Completed [facility] DTAP Unknown Completed [facility] HIB 3 Dose Schedule Unknown Completed [facility] HIB 3 Dose Schedule Unknown Completed [facility]PATITIS A [facility] HEPATITIS A Unknown Completed [facility] HPV Unknown Completed [facility] Meningococcal Polysaccharide (groups A, C, Y and W-135) conjugate vaccine (MCV4P) Unknown Completed [facility] MMR Unknown Completed [facility] MMR Unknown Completed [facility] Pediarix (dtap/hep B/ipv) Unknown Completed [facility] Polio (IPV/OPV) Unknown Completed [facility] Polio (IPV/OPV) Unknown Completed [facility] TDAP Unknown Completed [facility] Varicella (varivax)(chicken pox) Unknown Completed [facility] Varicella (varivax)(chicken pox) Unknown Completed [facility] Pneumococcal 7 Conjugate, PCV7 (Prevnar7) Unknown Completed [facility] Pneumococcal 7 Conjugate, PCV7 (Prevnar7) Unknown Completed [facility] Pneumococcal 7 Conjugate, PCV7 (Prevnar7) Unknown Completed [facility] Meningococcal B, OMV Unknown Completed [facility] HPV9 Unknown Completed [facility] Meningococcal Polysaccharide (groups A, C, Y and W-135) conjugate vaccine (MCV4P) Unknown Completed [facility] TDAP Unknown Completed [facility] DTAP Unknown Completed [facility] DTAP Unknown Completed [facility] DTAP Unknown Completed [facility] HIB 3 Dose Schedule Unknown Completed [facility] HIB 3 Dose Schedule Unknown Completed [facility] HEPATITIS A Unknown Completed [facility] HEPATITIS A Unknown Completed [facility] HPV Unknown Completed [facility] Meningococcal Polysaccharide (groups A, C, Y and W-135) conjugate vaccine (MCV4P) Unknown Completed [facility] MMR Unknown Completed [facility] MMR Unknown Completed [facility] Pediarix (dtap/hep B/ipv) Unknown Completed [facility] Polio (IPV/OPV) Unknown Completed [facility] Polio (IPV/OPV) Unknown Completed [facility] TDAP Unknown Completed [facility] Varicella (varivax)(chicken pox) Unknown Completed [facility] Varicella (varivax)(chicken pox) Unknown Completed [facility] Pneumococcal 7 Conjugate, PCV7 (Prevnar7) Unknown Completed [facility] Pneumococcal 7 Conjugate, PCV7 (Prevnar7) Unknown Completed [facility] Pneumococcal 7 Conjugate, PCV7 (Prevnar7) Unknown Completed [facility] Meningococcal B, OMV Unknown Completed [facility] HPV9 Unknown Completed [facility] Meningococcal Polysaccharide (groups A, C, Y and W-135) conjugate vaccine (MCV4P) Unknown Completed [facility] TDAP Unknown Completed [facility] DTAP Unknown Completed [facility] DTAP Unknown Completed [facility] DTAP Unknown Completed [facility] HIB 3 Dose Schedule Unknown Completed [facility] HIB 3 Dose Schedule Unknown Completed [facility] HEPATITIS A Unknown Completed [facility] HEPATITIS A Unknown Completed [facility] HPV Unknown Completed [facility] Meningococcal Polysaccharide (groups A, C, Y and W-135) conjugate vaccine (MCV4P) Unknown Completed [facility] MMR Unknown Completed [facility] MMR Unknown Completed [facility] Pediarix (dtap/hep B/ipv) Unknown Completed [facility] Polio (IPV/OPV) Unknown Completed [facility] Polio (IPV/OPV) Unknown Completed [facility] TDAP Unknown Completed [facility] Varicella (varivax)(chicken pox) Unknown Completed [facility] Varicella (varivax)(chicken pox) Unknown Completed [facility] Pneumococcal 7 Conjugate, PCV7 (Prevnar7) Unknown Completed [facility] Pneumococcal 7 Conjugate, PCV7 (Prevnar7) Unknown Completed [facility] Pneumococcal 7 Conjugate, PCV7 (Prevnar7) Unknown Completed [facility] Meningococcal B, OMV Unknown Completed [facility] HPV9 Unknown Completed [facility] Meningococcal Polysaccharide (groups A, C, Y and W-135) conjugate vaccine (MCV4P) Unknown Completed [facility] TDAP Unknown Completed [facility] DTAP Unknown Completed [facility] DTAP Unknown Completed [facility] DTAP Unknown Completed [facility] HIB 3 Dose Schedule Unknown Completed [facility] HIB 3 Dose Schedule Unknown Completed [facility] HEPATITIS A Unknown Completed [facility] HEPATITIS A Unknown Completed [facility] HPV Unknown Completed [facility] Meningococcal Polysaccharide (groups A, C, Y and W-135) conjugate vaccine (MCV4P) Unknown Completed [facility] MMR Unknown Completed [facility] MMR Unknown Completed [facility] Pediarix (dtap/hep B/ipv) Unknown Completed [facility] Polio (IPV/OPV) Unknown Completed [facility] [facility] Polio (IPV/OPV) Unknown Completed [facility] TDAP Unknown Completed [facility] Varicella (varivax)(chicken pox) Unknown Completed [facility] Varicella (varivax)(chicken pox) Unknown Completed [facility] Pneumococcal 7 Conjugate, PCV7 (Prevnar7) Unknown Completed [facility] Pneumococcal 7 Conjugate, PCV7 (Prevnar7) Unknown Completed [facility] Pneumococcal 7 Conjugate, PCV7 (Prevnar7) Unknown Completed [facility] Meningococcal B, OMV Unknown Completed [facility] HPV9 Unknown Completed [facility] Meningococcal Polysaccharide (groups A, C, Y and W-135) conjugate vaccine (MCV4P) Unknown Completed [facility] TDAP Unknown Completed [facility] DTAP Unknown Completed [facility] DTAP Unknown Completed [facility] DTAP Unknown Completed [facility] HIB 3 Dose Schedule Unknown Completed [facility] HIB 3 Dose Schedule Unknown Completed [facility] HEPATITIS A Unknown Completed [facility] HPV Unknown Completed [facility] Meningococcal Polysaccharide (groups A, C, Y and W-135) conjugate vaccine (MCV4P) Unknown Completed [facility] MMR Unknown Completed [facility] MMR Unknown Completed [facility] Pediarix (dtap/hep B/ipv) Unknown Completed [facility] Polio (IPV/OPV) Unknown Completed [facility] Polio (IPV/OPV) Unknown Completed [facility] TDAP Unknown Completed [facility] Varicella (varivax)(chicken pox) Unknown Completed [facility] Varicella (varivax)(chicken pox) Unknown Completed [facility] Pneumococcal 7 Conjugate, PCV7 (Prevnar7) Unknown Completed [facility] Pneumococcal 7 Conjugate, PCV7 (Prevnar7) Unknown Completed [facility] Pneumococcal 7 Conjugate, PCV7 (Prevnar7) Unknown Completed [facility] Meningococcal B, OMV Unknown Completed [facility] HPV9 Unknown Completed [facility] Meningococcal Polysaccharide (groups A, C, Y and W-135) conjugate vaccine (MCV4P) Unknown Completed [facility] TDAP Unknown Completed [facility] DTAP Unknown Completed [facility] DTAP Unknown Completed [facility] DTAP Unknown Completed [facility] HIB 3 Dose Schedule Unknown Completed [facility] HIB 3 Dose Schedule Unknown Completed [facility] HEPATITIS A Unknown Completed [facility] HEPATITIS A Unknown Completed [facility] HPV Unknown Completed [facility] Meningococcal Polysaccharide (groups A, C, Y and W-135) conjugate vaccine (MCV4P) Unknown Completed [facility] MMR Unknown Completed [facility] MMR Unknown Completed [facility] Pediarix (dtap/hep B/ipv) Unknown Completed [facility] Polio (IPV/OPV) Unknown Completed [facility] Polio (IPV/OPV) Unknown Completed [facility] TDAP Unknown Completed [facility] Varicella (varivax)(chicken pox) Unknown Completed [facility] Varicella (varivax)(chicken pox) Unknown Completed [facility] Pneumococcal 7 Conjugate, PCV7 (Prevnar7) Unknown Completed [facility] Pneumococcal 7 Conjugate, PCV7 (Prevnar7) Unknown Completed [facility] Pneumococcal 7 Conjugate, PCV7 (Prevnar7) Unknown Completed [facility] Meningococcal B, OMV Unknown Completed [facility] HPV9 Unknown Completed [facility] Meningococcal Polysaccharide (groups A, C, Y and W-135) conjugate vaccine (MCV4P) Unknown Completed [facility] TDAP Unknown Completed [facility] DTAP Unknown Completed [facility] DTAP Unknown Completed [facility] DTAP Unknown Completed [facility] HIB 3 Dose Schedule Unknown Completed [facility] HIB 3 Dose Schedule Unknown Completed [facility] HEPATITIS A Unknown Completed [facility] HEPATITIS A Unknown Completed [facility] HPV Unknown Completed [facility] Meningococcal Polysaccharide (groups A, C, Y and W-135) conjugate vaccine (MCV4P) Unknown Completed [facility] MMR Unknown Completed [facility] MMR Unknown Completed [facility] Pediarix (dtap/hep B/ipv) Unknown Completed [facility] Polio (IPV/OPV) [facility]V) Unknown Completed [facility] TDAP Unknown Completed [facility] Varicella (varivax)(chicken pox) Unknown Completed [facility] Varicella (varivax)(chicken pox) Unknown Completed [facility] Pneumococcal 7 Conjugate, PCV7 (Prevnar7) Unknown Completed [facility] Pneumococcal 7 Conjugate, PCV7 (Prevnar7) Unknown Completed [facility] Pneumococcal 7 Conjugate, PCV7 (Prevnar7) Unknown Completed [facility] Meningococcal B, OMV Unknown Completed [facility] HPV9 Unknown Completed [facility] Meningococcal Polysaccharide (groups A, C, Y and W-135) conjugate vaccine (MCV4P) Unknown Completed [facility] TDAP Unknown Completed [facility] Rho (d) Immune Globulin Unknown Completed [facility] DTAP Unknown Completed [facility] DTAP Unknown Completed [facility] DTAP Unknown Completed [facility] HIB 3 Dose Schedule Unknown Completed [facility] HIB 3 Dose Schedule Unknown Completed [facility] HEPATITIS A Unknown Completed [facility] HEPATITIS A Unknown Completed [facility] HPV Unknown Completed [facility] Meningococcal Polysaccharide (groups A, C, Y and W-135) conjugate vaccine (MCV4P) Unknown Completed [facility] MMR Unknown Completed [facility] MMR Unknown Completed [facility] Pediarix (dtap/hep B/ipv) Unknown Completed [facility] Polio (IPV/OPV) Unknown Completed [facility] Polio (IPV/OPV) Unknown Completed [facility] TDAP Unknown Completed [facility] Varicella (varivax)(chicken pox) Unknown Completed [facility] Varicella (varivax)(chicken pox) Unknown Completed [facility] Pneumococcal 7 Conjugate, PCV7 (Prevnar7) Unknown Completed [facility] Pneumococcal 7 Conjugate, PCV7 (Prevnar7) Unknown Completed [facility] Pneumococcal 7 Conjugate, PCV7 (Prevnar7) Unknown Completed [facility] Meningococcal B, OMV Unknown Completed [facility] HPV9 Unknown Completed [facility] Meningococcal Polysaccharide (groups A, C, Y and W-135) conjugate vaccine (MCV4P) Unknown Completed [facility] TDAP Unknown Completed [facility] Rho (d) Immune Globulin Unknown Completed [facility] DTAP Unknown Completed [facility] DTAP Unknown Completed [facility] DTAP Unknown Completed [facility] HIB 3 Dose Schedule Unknown Completed [facility] HIB 3 Dose Schedule Unknown Completed [facility] HEPATITIS A Unknown Completed [facility] HEPATITIS A Unknown Completed [facility] HPV Unknown Completed [facility] Meningococcal Polysaccharide (groups A, C, Y and W-135) conjugate vaccine (MCV4P) Unknown Completed [facility] MMR Unknown Completed [facility] MMR Unknown Completed [facility] Pediarix (dtap/hep B/ipv) Unknown Completed [facility] Polio (IPV/OPV) Unknown Completed [facility] Polio (IPV/OPV) Unknown Completed [facility] TDAP Unknown Completed [facility] Varicella (varivax)(chicken pox) Unknown Completed [facility] Varicella (varivax)(chicken pox) Unknown Completed [facility] Pneumococcal 7 Conjugate, PCV7 (Prevnar7) Unknown Completed [facility] Pneumococcal 7 Conjugate, PCV7 (Prevnar7) Unknown Completed [facility] Pneumococcal 7 Conjugate, PCV7 (Prevnar7) Unknown Completed [facility] Meningococcal B, OMV Unknown Completed [facility] HPV9 Unknown Completed [facility] Meningococcal Polysaccharide (groups A, C, Y and W-135) conjugate vaccine (MCV4P) Unknown Completed [facility] TDAP Unknown Completed [facility] DTAP Unknown Completed [facility] DTAP Unknown Completed [facility] DTAP Unknown Completed [facility] HIB 3 Dose Schedule Unknown Completed [facility] HIB 3 Dose Schedule Unknown Completed [facility] HEPATITIS A Unknown Completed [facility] HEPATITIS A Unknown Completed [facility] HPV Unknown Completed [facility] Meningococcal Polysaccharide (groups A, C, Y and W-135) conjugate vaccine (MCV4P) Unknown Completed [facility] MMR Unknown Completed [facility] MMR Unknown Completed [facility] Pediarix (dtap/hep B/ipv) Unknown Completed [facility] Polio (IPV/OPV) Unknown Completed [facility] Polio (IPV/OPV) Unknown Completed [facility] TDAP Unknown Completed [facility] Varicella (varivax)(chicken pox) Unknown Completed [facility] Varicella (varivax)(chicken pox) Unknown Completed [facility] Pneumococcal 7 Conjugate, PCV7 (Prevnar7) Unknown Completed [facility] Pneumococcal 7 Conjugate, PCV7 (Prevnar7) Unknown Completed [facility] Pneumococcal 7 Conjugate, PCV7 (Prevnar7) Unknown Completed [facility] Meningococcal B, OMV Unknown Completed [facility] HPV9 Unknown Completed [facility] Meningococcal Polysaccharide (groups A, C, Y and W-135) conjugate vaccine (MCV4P) Unknown Completed [facility] TDAP Unknown Completed [facility] Rho (d) Immune Globulin Unknown Completed [facility] DTAP Unknown Completed [facility] DTAP Unknown Completed [facility] DTAP Unknown Completed [facility] HIB 3 Dose Schedule Unknown Completed [facility] HIB 3 Dose Schedule Unknown Completed [facility] HEPATITIS A Unknown Completed [facility] HEPATITIS A Unknown Completed [facility] HPV Unknown Completed [facility] Meningococcal Polysaccharide (groups A, C, Y and W-135) conjugate vaccine (MCV4P) Unknown Completed [facility] MMR Unknown Completed [facility] MMR Unknown Completed [facility] Pediarix (dtap/hep B/ipv) Unknown Completed [facility] Polio (IPV/OPV) Unknown Completed [facility] Polio (IPV/OPV) Unknown Completed [facility] TDAP Unknown Completed [facility] Varicella (varivax)(chicken pox) Unknown Completed [facility] Varicella (varivax)(chicken pox) Unknown Completed [facility] Pneumococcal 7 Conjugate, PCV7 (Prevnar7) Unknown Completed [facility] Pneumococcal 7 Conjugate, PCV7 (Prevnar7) Unknown Completed [facility] Pneumococcal 7 Conjugate, PCV7 (Prevnar7) Unknown Completed [facility] Meningococcal B, OMV Unknown Completed [facility] HPV9 Unknown Completed [facility] Meningococcal Polysaccharide (groups A, C, Y and W-135) conjugate vaccine (MCV4P) Unknown Completed [facility] TDAP Unknown Completed [facility] Rho (d) Immune Globulin Unknown Completed [facility] DTAP Unknown Completed [facility] DTAP Unknown Completed [facility] DTAP Unknown Completed [facility] HIB 3 Dose Schedule Unknown Completed [facility] HIB 3 Dose Schedule Unknown Completed [facility] HEPATITIS A Unknown Completed [facility] HEPATITIS A Unknown Completed [facility] HPV Unknown Completed [facility] Meningococcal Polysaccharide (groups A, C, Y and W-135) conjugate vaccine (MCV4P) Unknown Completed [facility] MMR Unknown Completed [facility] MMR Unknown Completed [facility] Pediarix (dtap/hep B/ipv) Unknown Completed [facility] Polio (IPV/OPV) Unknown Completed [facility] Polio (IPV/OPV) Unknown Completed [facility] TDAP Unknown Completed [facility] Varicella (varivax)(chicken pox) Unknown Completed [facility] Varicella (varivax)(chicken pox) Unknown Completed [facility] Pneumococcal 7 Conjugate, PCV7 (Prevnar7) Unknown Completed [facility] Pneumococcal 7 Conjugate, PCV7 (Prevnar7) Unknown Completed [facility] Pneumococcal 7 Conjugate, PCV7 (Prevnar7) Unknown Completed [facility] Meningococcal B, OMV Unknown Completed [facility] HPV9 Unknown Completed [facility] Meningococcal Polysaccharide (groups A, C, Y and W-135) conjugate vaccine (MCV4P) Unknown Completed [facility] TDAP Unknown Completed [facility] Rho (d) Immune Globulin Unknown Completed [facility] DTAP Unknown Completed [facility] DTAP Unknown Completed [facility] DTAP Unknown Completed [facility] HIB 3 Dose Schedule Unknown Completed [facility] HIB 3 Dose Schedule Unknown Completed [facility] HEPATITIS A Unknown Completed [facility] HEPATITIS A Unknown Completed [facility] HPV Unknown Completed [facility] Meningococcal Polysaccharide (groups A, C, Y and W-135) conjugate vaccine (MCV4P) Unknown Completed [facility] MMR Unknown Completed [facility] MMR Unknown Completed [facility] Pediarix (dtap/hep B/ipv) Unknown Completed [facility] Polio (IPV/OPV) Unknown Completed [facility] Polio (IPV/OPV) Unknown Completed [facility] TDAP Unknown Completed [facility] Varicella (varivax)(chicken pox) Unknown Completed [facility] Varicella (varivax)(chicken pox) Unknown Completed [facility] Pneumococcal 7 Conjugate, PCV7 (Prevnar7) Unknown Completed [facility] Pneumococcal 7 Conjugate, PCV7 (Prevnar7) Unknown Completed [facility] Pneumococcal 7 Conjugate, PCV7 (Prevnar7) Unknown Completed [facility] Meningococcal B, OMV Unknown Completed [facility] HPV9 Unknown Completed [facility] Meningococcal Polysaccharide (groups A, C, Y and W-135) conjugate vaccine (MCV4P) Unknown Completed [facility] TDAP Unknown Completed [facility] Rho (d) Immune Globulin Unknown Completed [facility] DTAP Unknown Completed [facility] DTAP Unknown Completed [facility] DTAP Unknown Completed [facility] HIB 3 Dose Schedule Unknown Completed [facility] HIB 3 Dose Schedule Unknown Completed [facility] HEPATITIS A Unknown Completed [facility] HEPATITIS A Unknown Completed [facility] HPV Unknown Completed [facility] Meningococcal Polysaccharide (groups A, C, Y and W-135) conjugate vaccine (MCV4P) Unknown Completed [facility] MMR Unknown Completed [facility] MMR Unknown Completed [facility] Pediarix (dtap/hep B/ipv) Unknown Completed [facility] Polio (IPV/OPV) Unknown [facility] Polio (IPV/OPV) Unknown Completed [facility] TDAP Unknown Completed [facility] Varicella (varivax)(chicken pox) Unknown Completed [facility] Varicella (varivax)(chicken pox) Unknown Completed [facility] Pneumococcal 7 Conjugate, PCV7 (Prevnar7) Unknown Completed [facility] Pneumococcal 7 Conjugate, PCV7 (Prevnar7) Unknown Completed [facility] Pneumococcal 7 Conjugate, PCV7 (Prevnar7) Unknown Completed [facility] Meningococcal B, OMV Unknown Completed [facility] HPV9 Unknown Completed [facility] Meningococcal Polysaccharide (groups A, C, Y and W-135) conjugate vaccine (MCV4P) Unknown Completed [facility] TDAP Unknown Completed [facility] Rho (d) Immune Globulin Unknown Completed [facility] DTAP Unknown Completed [facility] DTAP Unknown Completed [facility] DTAP Unknown Completed [facility] HIB 3 Dose Schedule Unknown Completed [facility] HIB 3 Dose Schedule Unknown Completed [facility] HEPATITIS A Unknown Completed [facility] HEPATITIS A Unknown Completed [facility] HPV Unknown Completed [facility] Meningococcal Polysaccharide (groups A, C, Y and W-135) conjugate vaccine (MCV4P) Unknown Completed [facility] MMR Unknown Completed [facility] MMR Unknown Completed [facility] Pediarix (dtap/hep B/ipv) Unknown Completed [facility] Polio (IPV/OPV) Unknown Completed [facility] Polio (IPV/OPV) Unknown Completed [facility] TDAP Unknown Completed [facility] Varicella (varivax)(chicken pox) Unknown Completed [facility] Varicella (varivax)(chicken pox) Unknown Completed [facility] Pneumococcal 7 Conjugate, PCV7 (Prevnar7) Unknown Completed [facility] Pneumococcal 7 Conjugate, PCV7 (Prevnar7) Unknown Completed [facility] Pneumococcal 7 Conjugate, PCV7 (Prevnar7) Unknown Completed [facility] Meningococcal B, OMV Unknown Completed [facility] HPV9 Unknown Completed [facility] Meningococcal Polysaccharide (groups A, C, Y and W-135) conjugate vaccine (MCV4P) Unknown Completed [facility] TDAP Unknown Completed [facility] Rho (d) Immune Globulin Unknown Completed [facility] DTAP Unknown Completed [facility] DTAP Unknown Completed [facility] DTAP Unknown Completed [facility] HIB 3 Dose Schedule Unknown Completed [facility] HIB 3 Dose Schedule Unknown Completed [facility] HEPATITIS A Unknown Completed [facility] HEPATITIS A Unknown Completed [facility] HPV Unknown Completed [facility] Meningococcal Polysaccharide (groups A, C, Y and W-135) conjugate vaccine (MCV4P) Unknown Completed [facility] MMR Unknown Com[facility] [facility] MMR Unknown Completed [facility] Pediarix (dtap/hep B/ipv) Unknown Completed [facility] Polio (IPV/OPV) Unknown Completed [facility] Polio (IPV/OPV) Unknown Completed [facility] TDAP Unknown Completed [facility] Varicella (varivax)(chicken pox) Unknown Completed [facility] Varicella (varivax)(chicken pox) Unknown Completed [facility] Pneumococcal 7 Conjugate, PCV7 (Prevnar7) Unknown Completed [facility] Pneumococcal 7 Conjugate, PCV7 (Prevnar7) Unknown Completed [facility] Pneumococcal 7 Conjugate, PCV7 (Prevnar7) Unknown Completed [facility] Meningococcal B, OMV Unknown Completed [facility] HPV9 Unknown Completed [facility] Meningococcal Polysaccharide (groups A, C, Y and W-135) conjugate vaccine (MCV4P) Unknown Completed [facility] TDAP Unknown Completed [facility] Rho (d) Immune Globulin Unknown Completed [facility] DTAP Unknown Completed [facility] DTAP Unknown Completed [facility] DTAP Unknown Completed [facility] HIB 3 Dose Schedule Unknown Completed [facility] HIB 3 Dose Schedule Unknown Completed [facility] HEPATITIS A Unknown Completed [facility] HEPATITIS A Unknown Completed [facility] HPV Unknown Completed [facility] Meningococcal Polysaccharide (groups A, C, Y and W-135) conjugate vaccine (MCV4P) Unknown Completed [facility] MMR Unknown Completed [facility] MMR Unknown Completed [facility] Pediarix (dtap/hep B/ipv) Unknown Completed [facility] Polio (IPV/OPV) [facility] Unknown Completed [facility] TDAP Unknown Completed [facility] Varicella (varivax)(chicken pox) Unknown Completed [facility] Varicella (varivax)(chicken pox) Unknown Completed [facility] Pneumococcal 7 Conjugate, PCV7 (Prevnar7) Unknown Completed [facility] Pneumococcal 7 Conjugate, PCV7 (Prevnar7) Unknown Completed [facility] Pneumococcal 7 Conjugate, PCV7 (Prevnar7) Unknown Completed [facility] Meningococcal B, OMV Unknown Completed [facility] HPV9 Unknown Completed [facility] Meningococcal Polysaccharide (groups A, C, Y and W-135) conjugate vaccine (MCV4P) Unknown Completed [facility] TDAP Unknown Completed [facility] Rho (d) Immune Globulin Unknown Completed [facility] DTAP Unknown Completed [facility] DTAP Unknown Completed [facility] DTAP Unknown Completed [facility] HIB 3 Dose Schedule Unknown Completed [facility] HIB 3 Dose Schedule Unknown Completed [facility] HEPATITIS A Unknown Completed [facility] HEPATITIS A Unknown [facility] HPV Unknown Completed [facility] Meningococcal Polysaccharide (groups A, C, Y and W-135) conjugate vaccine (MCV4P) Unknown Completed [facility] MMR Unknown Completed [facility] MMR Unknown Completed [facility] Pediarix (dtap/hep B/ipv) Unknown Completed [facility] Polio (IPV/OPV) Unknown [facility] Pol[facility] (IPV/OPV) Unknown Completed [facility] TDAP Unknown Completed [facility] Varicella (varivax)(chicken pox) Unknown Completed [facility] Varicella (varivax)(chicken pox) Unknown Completed [facility] Pneumococcal 7 Conjugate, PCV7 (Prevnar7) Unknown Completed [facility] Pneumococcal 7 Conjugate, PCV7 (Prevnar7) Unknown Completed [facility] Pneumococcal 7 Conjugate, PCV7 (Prevnar7) Unknown Completed [facility] Meningococcal B, OMV Unknown Completed [facility] HPV9 Unknown Completed [facility] Meningococcal Polysaccharide (groups A, C, Y and W-135) conjugate vaccine (MCV4P) Unknown Completed [facility] TDAP Unknown Completed [facility] Rho (d) Immune Globulin Unknown Completed [facility] DTAP Unknown Completed [facility] DTAP Unknown Completed [facility] DTAP Unknown Completed [facility] HIB 3 Dose Schedule Unknown Completed [facility] HIB 3 Dose Schedule Unknown Completed [facility] HEPATITIS A Unknown Completed [facility] HEPATITIS A Unknown Completed [facility] HPV Unknown Completed [facility] Meningococcal Polysaccharide (groups A, C, Y and W-135) conjugate vaccine (MCV4P) Unknown Completed [facility] MMR Unknown Completed [facility] MMR Unknown Completed [facility] Pediarix (dtap/hep B/ipv) Unknown Completed [facility] Polio (IPV/OPV) Unknown Completed [facility] Polio (IPV/OPV) Unknown Completed [facility] TDAP Unknown Completed [facility] Varicella (varivax)(chicken pox) Unknown Completed [facility] Varicella (varivax)(chicken pox) Unknown Completed [facility] Pneumococcal 7 Conjugate, PCV7 (Prevnar7) Unknown Completed [facility] Pneumococcal 7 Conjugate, PCV7 (Prevnar7) Unknown Completed [facility] Pneumococcal 7 Conjugate, PCV7 (Prevnar7) Unknown Completed [facility] Meningococcal B, OMV Unknown Completed [facility] HPV9 Unknown Completed [facility] Meningococcal Polysaccharide (groups A, C, Y and W-135) conjugate vaccine (MCV4P) Unknown Completed [facility] TDAP Unknown Completed [facility] Rho (d) Immune Globulin Unknown Completed [facility] DTAP Unknown Completed [facility] DTAP Unknown Completed [facility] DTAP Unknown Completed [facility] HIB 3 Dose Schedule Unknown Completed [facility] HIB 3 Dose Schedule Unknown Completed [facility] HEPATITIS A Unknown Completed [facility] HEPATITIS A Unknown Completed [facility] HPV Unknown Completed [facility] Meningococcal Polysaccharide (groups A, C, Y and W-135) conjugate vaccine (MCV4P) Unknown Completed [facility] MMR Unknown Completed [facility] MMR Unknown Completed [facility] Pediarix (dtap/hep B/ipv) Unknown Completed [facility] Polio (IPV/OPV) Unknown Completed [facility] Polio (IPV/OPV) Unknown Completed [facility] TDAP Unknown Completed [facility] Varicella (varivax)(chicken pox) Unknown Completed [facility] Varicella (varivax)(chicken pox) Unknown Completed [facility] Pneumococcal 7 Conjugate, PCV7 (Prevnar7) Unknown Completed [facility] Pneumococcal 7 Conjugate, PCV7 (Prevnar7) Unknown Completed [facility] Pneumococcal 7 Conjugate, PCV7 (Prevnar7) Unknown Completed [facility] Meningococcal B, OMV Unknown Completed [facility] HPV9 Unknown Completed [facility] Meningococcal Polysaccharide (groups A, C, Y and W-135) conjugate vaccine (MCV4P) Unknown Completed [facility] TDAP Unknown Completed [facility] Rho (d) Immune Globulin Unknown Completed [facility] DTAP Unknown Completed [facility] DTAP Unknown Completed [facility] DTAP Unknown Completed [facility] HIB 3 Dose Schedule Unknown Completed [facility] HIB 3 Dose Schedule Unknown Completed [facility] HEPATITIS A Unknown Completed [facility] HEPATITIS A Unknown Completed [facility] HPV Unknown Completed [facility] Meningococcal Polysaccharide (groups A, C, Y and W-135) conjugate vaccine (MCV4P) Unknown Completed [facility] MMR Unknown Completed [facility] MMR Unknown Completed [facility] Pediarix (dtap/hep B/ipv) Unknown Completed [facility] Polio (IPV/OPV) Unknown Completed [facility] Polio (IPV/OPV) Unknown Completed [facility] TDAP Unknown Completed [facility] Varicella (varivax)(chicken pox) Unknown Completed [facility] Varicella (varivax)(chicken pox) Unknown Completed [facility] Pneumococcal 7 Conjugate, PCV7 (Prevnar7) Unknown Completed [facility] Pneumococcal 7 Conjugate, PCV7 (Prevnar7) Unknown Completed [facility] Pneumococcal 7 Conjugate, PCV7 (Prevnar7) Unknown Completed [facility] Meningococcal B, OMV Unknown Completed [facility] HPV9 Unknown Completed [facility] Meningococcal Polysaccharide (groups A, C, Y and W-135) conjugate vaccine (MCV4P) Unknown Completed [facility] TDAP Unknown Completed [facility] Rho (d) Immune Globulin Unknown Completed [facility] DTAP Unknown Completed [facility] DTAP Unknown Completed [facility] DTAP Unknown Completed [facility] HIB 3 Dose Schedule Unknown Completed [facility] HIB 3 Dose Schedule Unknown Completed [facility] HEPATITIS A Unknown Completed [facility] HEPATITIS A Unknown Completed [facility] HPV Unknown Completed [facility] Meningococcal Polysaccharide (groups A, C, Y and W-135) conjugate vaccine (MCV4P) Unknown Completed [facility] MMR Unknown Completed [facility] MMR Unknown Completed [facility] Pediarix (dtap/hep B/ipv) Unknown Completed [facility] Polio (IPV/OPV) Unknown Completed [facility] Polio (IPV/OPV) Unknown Completed [facility] TDAP Unknown Completed [facility] Varicella (varivax)(chicken pox) Unknown Completed [facility] Varicella (varivax)(chicken pox) Unknown Completed [facility] Pneumococcal 7 Conjugate, PCV7 (Prevnar7) Unknown Completed [facility] Pneumococcal 7 Conjugate, PCV7 (Prevnar7) Unknown Completed [facility] Pneumococcal 7 Conjugate, PCV7 (Prevnar7) Unknown Completed [facility] Meningococcal B, OMV Unknown Completed [facility] HPV9 Unknown Completed [facility] Meningococcal Polysaccharide (groups A, C, Y and W-135) conjugate vaccine (MCV4P) Unknown Completed [facility] TDAP Unknown Completed [facility] Rho (d) Immune Globulin Unknown Completed [facility] Rho (d) Immune Globulin Unknown Completed [facility] DTAP Unknown Completed [facility] DTAP Unknown Completed [facility] DTAP Unknown Completed [facility] HIB 3 Dose Schedule Unknown Completed [facility] HIB 3 Dose Schedule Unknown Completed [facility] HEPATITIS A Unknown Completed [facility] HEPATITIS A Unknown Completed [facility] HPV Unknown Completed [facility] Meningococcal Polysaccharide (groups A, C, Y and W-135) conjugate vaccine (MCV4P) Unknown Completed [facility] MMR Unknown Completed [facility] MMR Unknown Completed [facility] Pediarix (dtap/hep B/ipv) Unknown Completed [facility] Polio (IPV/OPV) Unknown Completed [facility] Polio (IPV/OPV) Unknown Completed [facility] TDAP Unknown Completed [facility] Varicella (varivax)(chicken pox) Unknown Completed [facility] Varicella (varivax)(chicken pox) Unknown Completed [facility] Pneumococcal 7 Conjugate, PCV7 (Prevnar7) Unknown Completed [facility] Pneumococcal 7 Conjugate, PCV7 (Prevnar7) Unknown Completed [facility] Pneumococcal 7 Conjugate, PCV7 (Prevnar7) Unknown Completed [facility] Meningococcal B, OMV Unknown Completed [facility] HPV9 Unknown Completed [facility] Meningococcal Polysaccharide (groups A, C, Y and W-135) conjugate vaccine (MCV4P) Unknown Completed [facility] TDAP Unknown Completed [facility] Rho (d) Immune Globulin Unknown Completed [facility] Rho (d) Immune Globulin Unknown Completed [facility] DTAP Unknown Completed [facility] DTAP Unknown Completed [facility] DTAP Unknown Completed [facility] HIB 3 Dose Schedule Unknown Completed [facility] HIB 3 Dose Schedule Unknown Completed [facility] HEPATITIS A Unknown Completed [facility] HEPATITIS A Unknown Completed [facility] HPV Unknown Completed [facility] Meningococcal Polysaccharide (groups A, C, Y and W-135) conjugate vaccine (MCV4P) Unknown Completed [facility] MMR Unknown Completed [facility] MMR Unknown Completed [facility] Pediarix (dtap/hep B/ipv) Unknown Completed [facility] Polio (IPV/OPV) [facility] ([facility]OPV) Unknown Completed [facility] TDAP Unknown Completed [facility] Varicella (varivax)(chicken pox) Unknown Completed [facility] Varicella (varivax)(chicken pox) Unknown Completed [facility] Pneumococcal 7 Conjugate, PCV7 (Prevnar7) Unknown Completed [facility] Pneumococcal 7 Conjugate, PCV7 (Prevnar7) Unknown Completed [facility] Pneumococcal 7 Conjugate, PCV7 (Prevnar7) Unknown Completed [facility] Meningococcal B, OMV Unknown Completed [facility] HPV9 Unknown Completed [facility] Meningococcal Polysaccharide (groups A, C, Y and W-135) conjugate vaccine (MCV4P) Unknown Completed [facility] TDAP Unknown Completed [facility] Rho (d) Immune Globulin Unknown Completed [facility] DTAP Unknown Completed [facility] DTAP Unknown Completed [facility] DTAP Unknown Completed [facility] HIB 3 Dose Schedule Unknown Completed [facility] HIB 3 Dose Schedule Unknown Completed [facility] HEPATITIS A Unknown Completed [facility] HEPATITIS A Unknown Completed [facility] HPV Unknown Completed [facility] Meningococcal Polysaccharide (groups A, C, Y and W-135) conjugate vaccine (MCV4P) Unknown Completed [facility] MMR Unknown Completed [facility] MMR Unknown Completed [facility] Pediarix (dtap/hep B/ipv) Unknown Completed [facility] Polio (IPV/OPV) Unknown Completed [facility] Polio (IPV/OPV) Unknown Completed [facility] TDAP Unknown Completed [facility] Varicella (varivax)(chicken pox) Unknown Completed [facility] Varicella (varivax)(chicken pox) Unknown Completed [facility] Pneumococcal 7 Conjugate, PCV7 (Prevnar7) Unknown Completed [facility] Pneumococcal 7 Conjugate, PCV7 (Prevnar7) Unknown Completed [facility] Pneumococcal 7 Conjugate, PCV7 (Prevnar7) Unknown Completed [facility] Meningococcal B, OMV Unknown Completed [facility] HPV9 Unknown Completed [facility] Meningococcal Polysaccharide (groups A, C, Y and W-135) conjugate vaccine (MCV4P) Unknown Completed [facility] TDAP Unknown Completed [facility] Rho (d) Immune Globulin Unknown Completed [facility] Rho (d) Immune Globulin Unknown Completed [facility] HIB 4 Dose Schedule Unknown Completed [facility] Hep B, Adol or Pedi Dosage Unknown Completed [facility] Hep B, Adol or Pedi Dosage Unknown Completed [facility] Pediarix (dtap/hep B/ipv) Unknown Completed [facility] Pneumococcal 7 Conjugate, PCV7 (Prevnar7) Unknown Completed [facility] DTAP Unknown Completed [facility] DTAP Unknown Completed [facility] DTAP Unknown Completed [facility] HIB 3 Dose Schedule Unknown Completed [facility] HIB 3 Dose Schedule Unknown Completed [facility] HEPATITIS A Unknown Completed [facility] HEPATITIS A Unknown Completed [facility] HPV Unknown Completed [facility] Meningococcal Polysaccharide (groups A, C, Y and W-135) conjugate vaccine (MCV4P) Unknown Completed [facility] MMR Unknown Completed [facility] MMR Unknown Completed [facility] Pediarix (dtap/hep B/ipv) Unknown Completed [facility] Polio (IPV/OPV) Unknown Completed [facility] Polio (IPV/OPV) Unknown Completed [facility] TDAP Unknown Completed [facility] Varicella (varivax)(chicken pox) Unknown Completed [facility] Varicella (varivax)(chicken pox) Unknown Completed [facility] Pneumococcal 7 Conjugate, PCV7 (Prevnar7) Unknown Completed [facility] Pneumococcal 7 Conjugate, PCV7 (Prevnar7) Unknown Completed [facility] Pneumococcal 7 Conjugate, PCV7 (Prevnar7) Unknown Completed [facility] Meningococcal B, OMV Unknown Completed [facility] HPV9 Unknown Completed [facility] Meningococcal Polysaccharide (groups A, C, Y and W-135) conjugate vaccine (MCV4P) Unknown Completed [facility] TDAP Unknown Completed [facility] Rho (d) Immune Globulin Unknown Completed [facility] Rho (d) Immune Globulin Unknown Completed [facility] Vital Signs Vital Name Observation Time Observation Value Comments S ource Systolic blood pressure 2023-03-12 21:08:00 131 mm[Hg] [facility] Diastolic blood pressure 2023-03-12 21:08:00 94 mm[Hg] [facility] Heart rate 2023-03-12 21:07:00 89 /min [facility] Body temperature 2023-03-12 21:07:[address] [facility] Body height 2023-03-12 21:07:00 160 cm [facility] Body weight 2023-03-12 21:07:00 136.351 kg [facility] BMI 2023-03-12 21:07:00 53.27 kg/m2 [facility] Systolic blood pressure 2023-03-04 21:17:00 134 mm[Hg] [facility] Diastolic blood pressure 2023-03-04 21:17:00 77 mm[Hg] [facility] Heart rate 2023-03-04 21:17:00 96 /min [facility] Body temperature 2023-03-04 21:17:[address] [facility] Respiratory rate 2023-03-04 21:17:00 18 /min [facility] Oxygen saturation in Arterial blood by Pulse oximetry 2023-03-04 21:17:00 99 /min [facility] Body height 2023-03-03 13:30:00 160 cm [facility] Body weight 2023-03-03 13:30:00 142.883 kg [facility] BMI 2023-03-03 13:30:00 55.81 kg/m2 [facility] Systolic blood pressure 2023-03-03 13:30:00 125 mm[Hg] [facility] Diastolic blood pressure 2023-03-03 13:30:00 78 mm[Hg] [facility] Heart rate 2023-03-03 13:30:00 89 /min [facility] Body height 2023-03-03 13:30:00 160 cm [facility] Body weight 2023-03-03 13:30:00 142.883 kg [facility] BMI 2023-03-03 13:30:00 55.81 kg/m2 [facility] Oxygen saturation in Arterial blood by Pulse oximetry 2023-03-03 13:30:00 99 /min [facility] Body temperature 2023-03-03 13:15:[address] [facility] Respiratory rate 2023-03-03 13:15:00 18 /min [facility] Oxygen saturation in Arterial blood by Pulse oximetry 2023-03-02 20:15:00 98 /min [facility] Heart rate 2023-03-02 20:15:00 102 /min [facility] Systolic blood pressure 2023-03-02 20:00:00 110 mm[Hg] [facility] Diastolic blood pressure 2023-03-02 20:00:00 68 mm[Hg] [facility] Respiratory rate 2023-03-02 18:00:00 20 /min [facility] Body weight 2023-03-02 17:45:00 142.883 kg [facility] BMI 2023-03-02 17:45:00 55.80 kg/m2 [facility] Systolic blood pressure 2023-03-02 16:31:00 135 mm[Hg] [facility] Diastolic blood pressure 2023-03-02 16:31:00 95 mm[Hg] [facility] Heart rate 2023-03-02 16:30:00 109 /min [facility] Body temperature 2023-03-02 16:30:[address] [facility] Body weight 2023-03-02 16:30:00 143.155 kg [facility] BMI 2023-03-02 16:30:00 55.91 kg/m2 [facility] Heart rate 2023-02-25 00:00:00 107 /min [facility] Oxygen saturation in Arterial blood by Pulse oximetry 2023-02-25 00:00:00 99 /min [facility] Systolic blood pressure 2023-02-24 23:50:00 118 mm[Hg] [facility] Diastolic blood pressure 2023-02-24 23:50:00 50 mm[Hg] [facility] Respiratory rate 2023-02-24 22:30:00 17 /min [facility] Systolic blood pressure 2023-02-24 21:21:00 142 mm[Hg] [facility] Diastolic blood pressure 2023-02-24 21:21:00 84 mm[Hg] [facility] Heart rate 2023-02-24 21:20:00 107 /min [facility] Body temperature 2023-02-24 21:20:[address] [facility] Body height 2023-02-24 21:20:00 160 cm [facility] Body weight 2023-02-24 21:20:00 141.976 kg [facility] BMI 2023-02-24 21:20:00 55.45 kg/m2 [facility] Systolic blood pressure 2023-02-10 20:18:00 136 mm[Hg] [facility] Diastolic blood pressure 2023-02-10 20:18:00 89 mm[Hg] [facility] Heart rate 2023-02-10 20:18:00 104 /min [facility] Body temperature 2023-02-10 20:18:[address] [facility] Respiratory rate 2023-02-10 20:18:00 18 /min [facility] Body height 2023-02-10 20:18:00 160 cm [facility] Body weight 2023-02-10 20:18:00 141.069 kg [facility] BMI 2023-02-10 20:18:00 55.09 kg/m2 [facility] Systolic blood pressure 2023-02-10 15:22:00 121 mm[Hg] [facility] Diastolic blood pressure 2023-02-10 15:22:00 82 mm[Hg] [facility] Heart rate 2023-02-10 15:22:00 89 /min [facility] Respiratory rate 2023-02-10 15:22:00 19 /min [facility] Body height 2023-02-10 15:22:00 160 cm [facility] Body weight 2023-02-10 15:22:00 140.933 kg [facility] BMI 2023-02-10 15:22:00 55.04 kg/m2 [facility] Oxygen saturation in Arterial blood by Pulse oximetry 2023-02-10 15:22:00 95 /min [facility] Systolic blood pressure 2023-01-30 19:45:00 116 mm[Hg] [facility] Diastolic blood pressure 2023-01-30 19:45:00 62 mm[Hg] [facility] Heart rate 2023-01-30 14:49:00 98 /min [facility] Body temperature 2023-01-30 14:49:[address] [facility] Respiratory rate 2023-01-30 14:49:00 16 /min [facility] Oxygen saturation in Arterial blood by Pulse oximetry 2023-01-30 14:49:00 99 /min [facility] Body height 2023-01-29 20:46:00 160 cm [facility] Body weight 2023-01-29 20:46:00 138.801 kg [facility] BMI 2023-01-29 20:46:00 54.21 kg/m2 [facility] Systolic blood pressure 2023-01-29 19:19:00 134 mm[Hg] [facility] Diastolic blood pressure 2023-01-29 19:19:00 84 mm[Hg] [facility] Heart rate 2023-01-29 19:18:00 142 /min [facility] Body temperature 2023-01-29 19:18:[address] [facility] Body height 2023-01-29 19:18:00 160 cm [facility] Body weight 2023-01-29 19:18:00 139.073 kg [facility] BMI 2023-01-29 19:18:00 54.31 kg/m2 [facility] Systolic blood pressure 2023-01-23 21:06:00 136 mm[Hg] [facility] Diastolic blood pressure 2023-01-23 21:06:00 67 mm[Hg] [facility] Heart rate 2023-01-23 21:06:00 124 /min [facility] Body temperature 2023-01-23 21:06:[address] [facility] Body height 2023-01-23 21:06:00 160 cm [facility] Body weight 2023-01-23 21:06:00 144.244 kg [facility] BMI 2023-01-23 21:06:00 56.33 kg/m2 [facility] Heart rate 2023-01-18 21:00:00 104 /min [facility] Oxygen saturation in Arterial blood by Pulse oximetry 2023-01-18 21:00:00 99 /min [facility] Systolic blood pressure 2023-01-18 20:30:00 127 mm[Hg] [facility] Diastolic blood pressure 2023-01-18 20:30:00 60 mm[Hg] [facility] Respiratory rate 2023-01-18 20:30:00 18 /min [facility] Body temperature 2023-01-18 19:00:[address] [facility] Body height 2023-01-18 18:38:00 160 cm [facility] Body weight 2023-01-18 18:38:00 144.425 kg [facility] BMI 2023-01-18 18:38:00 56.40 kg/m2 [facility] Systolic blood pressure 2023-01-15 16:05:00 133 mm[Hg] [facility] Diastolic blood pressure 2023-01-15 16:05:00 69 mm[Hg] [facility] Heart rate 2023-01-15 16:05:00 106 /min [facility] Body temperature 2023-01-15 16:05:[address] [facility] Body height 2023-01-15 16:05:00 152.4 cm [facility] weight 2023-01-15 16:05:[address] [facility] BMI 2023-01-15 16:05:00 60.89 kg/m2 [facility] Systolic blood pressure 2022-12-19 18:29:00 106 mm[Hg] [facility] Diastolic blood pressure 2022-12-19 18:29:00 55 mm[Hg] [facility] Heart rate 2022-12-19 18:29:00 91 /min [facility] Body temperature 2022-12-19 18:29:[address] [facility] Body height 2022-12-19 18:29:[address] [facility] Body weight 2022-12-19 18:29:[address] [facility] BMI 2022-12-19 18:29:00 57.61 kg/m2 [facility] Systolic blood pressure 2022-10-23 18:48:00 148 mm[Hg] [facility] Diastolic blood pressure 2022-10-23 18:48:00 86 mm[Hg] [facility] Heart rate 2022-10-23 18:43:00 98 /min [facility] Body temperature 2022-10-23 18:43:[address] [facility] Respiratory rate 2022-10-23 18:43:00 18 /min [facility] Body height 2022-10-23 18:43:00 157.5 cm [facility] Body weight 2022-10-23 18:43:[address] [facility] BMI 2022-10-23 18:43:00 53.81 kg/m2 [facility] Oxygen saturation in Arterial blood by Pulse oximetry 2022-10-23 18:43:00 98 /min [facility] Systolic blood pressure 2022-09-25 21:20:00 118 mm[Hg] [facility] Diastolic blood pressure 2022-09-25 21:20:00 79 mm[Hg] [facility] Heart rate 2022-09-25 21:20:00 108 /min [facility] Respiratory rate 2022-09-25 21:20:00 18 /min [facility] Body height 2022-09-25 21:20:00 157.5 cm [facility] Body weight 2022-09-25 21:20:00 133.811 kg [facility] BMI 2022-09-25 21:20:00 53.96 kg/m2 [facility] Systolic blood pressure 2022-09-20 04:44:00 136 mm[Hg] [facility] Diastolic blood pressure 2022-09-20 04:44:00 88 mm[Hg] [facility] Heart rate 2022-09-20 04:44:00 102 /min [facility] Respiratory rate 2022-09-20 04:44:00 15 /min [facility] Oxygen saturation in Arterial blood by Pulse oximetry 2022-09-20 04:44:00 98 /min [facility] Body temperature 2022-09-20 04:26:[address] [facility] Body height 2022-09-20 04:26:00 157.5 cm [facility] Body weight 2022-09-20 04:26:00 135.217 kg [facility] BMI 2022-09-20 04:26:00 54.52 kg/m2 [facility] Systolic blood pressure 2022-08-28 18:57:00 138 mm[Hg] [facility] Diastolic blood pressure 2022-08-28 18:57:00 86 mm[Hg] [facility] Heart rate 2022-08-28 18:57:00 93 /min [facility] Body temperature 2022-08-28 18:57:[address] [facility] Body height 2022-08-28 18:57:00 160 cm [facility] Body weight 2022-08-28 18:57:00 134.355 kg [facility] BMI 2022-08-28 18:57:00 52.47 kg/m2 [facility] Systolic blood pressure 2022-07-24 06:10:00 121 mm[Hg] [facility] Diastolic blood pressure 2022-07-24 06:10:00 36 mm[Hg] [facility] Heart rate 2022-07-24 06:10:00 98 /min [facility] Oxygen saturation in Arterial blood by Pulse oximetry 2022-07-24 06:10:00 93 /min [facility] Respiratory rate 2022-07-24 04:00:00 17 /min [facility] Body temperature 2022-07-24 03:23:[address] [facility] Body height 2022-07-24 03:23:00 160 cm [facility] Body weight 2022-07-24 03:23:00 127.007 kg [facility] BMI 2022-07-24 03:23:00 49.60 kg/m2 [facility] Heart rate 2022-02-22 20:15:00 109 /min [facility] Body temperature 2022-02-22 20:15:[address] [facility] Oxygen saturation in Arterial blood by Pulse oximetry 2022-02-22 20:15:00 99 /min [facility] Systolic blood pressure 2022-02-22 20:00:00 125 mm[Hg] [facility] Diastolic blood pressure 2022-02-22 20:00:00 72 mm[Hg] [facility] Respiratory rate 2022-02-22 18:00:00 18 /min [facility] Body height 2022-02-22 17:35:00 157.5 cm [facility] Body weight 2022-02-22 17:35:00 148.78 kg [facility] BMI 2022-02-22 17:35:00 59.99 kg/m2 [facility] Body mass index (BMI) [Percentile] Per age and sex 2022-02-22 17:35:00 99.57 % [facility] Systolic blood pressure 2021-08-27 17:36:00 137 mm[Hg] [facility] Diastolic blood pressure 2021-08-27 17:36:00 96 mm[Hg] [facility] Heart rate 2021-08-27 17:36:00 128 /min [facility] Body temperature 2021-08-27 17:36:[address] [facility] Respiratory rate 2021-08-27 17:36:00 18 /min [facility] Body height 2021-08-27 17:36:00 157.5 cm [facility] Body weight 2021-08-27 17:36:00 105.235 kg [facility] BMI 2021-08-27 17:36:00 42.43 kg/m2 [facility] Body mass index (BMI) [Percentile] Per age and sex 2021-08-27 17:36:00 99.02 % [facility] Oxygen saturation in Arterial blood by Pulse oximetry 2021-08-27 17:36:00 100 /min [facility] Systolic blood pressure 2021-03-06 22:20:00 122 mm[Hg] [facility] Diastolic blood pressure 2021-03-06 22:20:00 78 mm[Hg] [facility] Heart rate 2021-03-06 22:20:00 88 /min [facility] Body temperature 2021-03-06 22:20:[address] [facility] Respiratory rate 2021-03-06 22:20:00 18 /min [facility] Body height 2021-03-06 22:20:00 161 cm [facility] Body weight 2021-03-06 22:20:00 131.498 kg [facility] BMI 2021-03-06 22:20:00 50.73 kg/m2 [facility] Body mass index (BMI) [Percentile] Per age and sex 2021-03-06 22:20:00 99.50 % [facility] Procedures Procedure Date / Time Performed Performing Clinician Source CBC WITH DIFF 2023-03-04 11:15:00 Martha Latif [facility] CBC WITH DIFF 2023-03-04 11:15:00 Martha Latif [facility] SECTION 2023-03-03 13:47:00 Martha Latif [facility] SECTION 2023-03-03 13:47:00 Martha Latif [facility] HB ABO GROUPING 2023-03-03 11:55:00 Martha Latif [facility] RHO (D) IMMUNE GLOBULIN 2023-03-03 11:55:[address] [facility] HB ABO GROUPING 2023-03-03 11:55:00 Martha Latif [facility] RHO (D) IMMUNE GLOBULIN 2023-03-03 11:55:[address] [facility] HOSPITAL ADMISSION 2023-03-03 06:01:00 Doctor Un assigned, [place] [facility] NOTICE OF PRIVACY PRACTICES 2023-03-02 21:12:45 Doctor Unassigned, [place] [facility] CONSENT/REFUSAL FOR DIAGNOSIS AND TREATMENT 2023-03-02 21:09:41 Doctor Unassigned, [place] [facility] ASSIGNMENT OF BENEFITS 2023-03-02 21:09:25 Docto r Unassigned, [place] [facility] SGOT (ASPARTATE AMINO TRANSFER) 2023-03-02 18:20:[address] [facility] CREATININE 2023-03-02 18:20:00 Martha Latif [facility] ALANINE AMINO TRANSFERASE(SGPT 2023-03-02 18:20:[address] [facility] LACTATE DEHYDROGENASE 2023-03-02 18:20:[address] [facility] URIC ACID 2023-03-02 18:20:00 Martha Latif [facility] CBC WITH DIFF 2023-03-02 18:20:00 LatifMartha Percy [facility] URINALYSIS 2023-03-02 18:20:00 LatifMartha Percy [facility] HB ABO GROUPING 2023-03-02 18:20:00 SalomonMartha Percy [facility] PROTEIN CREAT RATIO URINE RANDOM 2023-03-02 18:20:[address] [facility] HIV 1/2 AG-AB WITH REFLEX 2023-03-02 18:20:[address] [facility] CONSENT/REFUSAL FOR DIAGNOSIS AND TREATMENT 2023-03-02 17:38:30 Doctor Unassigned, [place] [facility] ASSIGNMENT OF BENEFITS 2023-03-02 17:38:04 Docto r Unassigned, [place] [facility] L&D VISIT (NON-DELIVERED) 2023-03-02 06:01:00 Doctor Unassigned, [place] [facility] L&D VISIT (NON-DELIVERED) 2023-03-02 06:01:00 Doctor Unassigned, [place] [facility] POCT URINALYSIS W/O SPECIFIC GRAVITY 2023-03-02 00:00:[address] [facility] CONSENT/REFUSAL FOR DIAGNOSIS AND TREATMENT 2023-02-24 22:05:04 Doctor Unassigned, [place] [facility] ASSIGNMENT OF BENEFITS 2023-02-24 22:02:18 Docto r Unassigned, [place] [facility] POCT URINALYSIS W/O SPECIFIC GRAVITY 2023-02-24 00:00:[address] [facility] DSU PRE-OP 2023-02-13 06:01:00 Doctor Unass igned, [place] [facility] >14 WEEKS US LIMITED 2023-02-10 21:14:[address] [facility] POCT URINALYSIS W/O SPECIFIC GRAVITY 2023-02-10 00:00:[address] [facility] HB ECG ROUTINE & RHYTHM STRIP 2023-01-30 01:43:[address] [facility] URINALYSIS 2023-01-30 [facility]:10[facility] METABOLIC PANEL ([id number]) 2023-01-29 22:32:[address] [facility] CBC WITH DIFF 2023-01-29 22:32:[address] [facility] ASSIGNMENT OF BENEFITS 2023-01-29 22:09:13 Docto r Unassigned, [place] [facility] RAPID STREP SCREEN FOR GROUP A 2023-01-29 21:37:[address] [facility] RAPID INFLUENZA A/B 2023-01-29 21:37:[address] [facility] COVID-19 (ID NOW RAPID TESTING) 2023-01-29 21:37:[address] [facility] CONSENT/REFUSAL FOR DIAGNOSIS AND TREATMENT 2023-01-29 20:35:21 Doctor Unassigned, [place] [facility] POCT URINALYSIS W/O SPECIFIC GRAVITY 2023-01-29 00:00:00 Salomon [facility] SECOND AND THIRD TRIMESTER ULTRASOUND 2023-01-22 14:30:00 Salomon [facility] ASSIGNMENT OF BENEFITS 2023-01-18 18:27:51 Docto r Unassigned, [place] [facility] CONSENT/REFUSAL FOR DIAGNOSIS AND TREATMENT 2023-01-18 18:26:41 Doctor Unassigned, [place] [facility] POCT URINALYSIS W/O SPECIFIC GRAVITY 2023-01-15 00:00:00 Salomon [facility] TDAP VACCINE, >11 YRS, IM 2022-12-19 18:43:48 Salomon [facility] POCT URINALYSIS W/O SPECIFIC GRAVITY 2022-12-19 00:00:00 Salomon [facility] SECOND AND THIRD TRIMESTER ULTRASOUND 2022-11-27 13:54:00 Salomon [facility] SECOND AND THIRD TRIMESTER ULTRASOUND 2022-10-28 15:21:00 Salomon [facility] POCT URINALYSIS W/O SPECIFIC GRAVITY 2022-10-23 00:00:[address] [facility] POCT URINALYSIS W/O SPECIFIC GRAVITY 2022-09-25 00:00:00 aSlomon [address] Greer [facility] URINALYSIS 2022-09-20 04:49:00 Tristin Valente [facility] LIPASE 2022-09-20 04:48:00 Tristin Valente [facility] COMP. METABOLIC PANEL ([id number]) 2022-09-20 04:48:[address] [facility] CBC WITH DIFF 2022-09-20 04:48:00 Tristin Valente [facility] CONSENT/REFUSAL FOR DIAGNOSIS AND TREATMENT 2022-09-20 04:20:24 Doctor Unassigned, [place] [facility] OB TRANSVAGINAL 2022-08-29 11:46:37 Salomon Martha Percy [facility]TR[facility] 2022-08-28 05:01:00 Doc tor Unassigned, [place] [facility] POCT URINALYSIS W/O SPECIFIC GRAVITY 2022-08-28 00:00:00 SalomonMartha Percy [facility] FIRST TRIMESTER LESS THAN 14 WEEKS WITH TRANSVAGINAL 2022-07-24 05:35:[address] [facility] TOTAL BETA HCG ASSAY 2022-07-24 03:55:[address] [facility] CBC WITHOUT DIFF 2022-07-24 03:55:[address] [facility] POCT TEST 2022-07-24 03:30:[address] [facility] URINALYSIS 2022-07-24 03:29:00 Tulio Ferguson [facility] CONSENT/REFUSAL FOR DIAGNOSIS AND TREATMENT 2022-07-24 03:15:26 Doctor Unassigned, [place] [facility] [id number] 2022-03-03 00:00:00 DAVLE [facility] [id number] 2022-03-02 00:00:00 VEGAL [facility] [id number] 2022-03-02 00:00:00 VEGAL [facility] [id number] 2022-03-02 00:00:00 [facility] CONSENT/REFUSAL FOR DIAGNOSIS AND TREATMENT 2022-02-22 17:37:16 Doctor Unassigned, [place] [facility] NOTICE OF PRIVACY PRACTICES 2021-08-27 17:34:20 Doctor Unassigned, [place] [facility] CONSENT/REFUSAL FOR DIAGNOSIS AND TREATMENT 2021-08-27 17:30:42 Doctor Unassigned, [place] [facility] MENACTRA (MCV4-D) VACCINE 2021-03-06 22:24:[address] [facility] GARDASIL 9 (HPV 9V) VACCINE 2021-03-06 22:24:[address] [facility] MENINGOCOCCAL B VACCINE, OMV, 2 DOSE, IM 2021-03-06 22:24:[address] [facility] Encounters Start Date/Time End Date/Time Encounter Type Admission Type Attending [facility] Care Facility Care Department Encounter ID Source 2023-02-24 18:13:58 Outpatient P [facility] [id number] [facility] 2022-02-28 19:00:00 Inpatient Marcy Weber [facility] [id number] [facility] 2022-02-22 19:29:20 Outpatient X [facility] [id number] [facility] 2021-01-14 00:38:47 Emergency [facility] [id number] [facility] 2023-04-13 13:00:00 2023-04-13 13:00:00 Outpatient R MARTHA LATIF [facility] [id number] [facility] 2023-03-12 14:30:00 2023-03-12 15:19:01 Outpatient MARTHA DECKER [facility] [id number] [facility] 2023-03-12 14:30:00 2023-03-12 15:19:01 Routine Visit Latif, Martha [facility] [id number] [facility] 2023-03-03 04:58:00 2023-03-04 18:40:00 Inpatient P MARTHA LATIF [facility] [id number] [facility] 2023-03-03 04:58:00 2023-03-04 18:40:00 Hospital Encounter Martha Latif [facility] [id number] [facility] 2023-03-03 08:00:00 2023-03-03 09:44:00 Surgery Martha Latif [facility] [id number] [facility] 2023-03-03 00:00:00 2023-03-03 00:00:00 Orders Only Doctor Unassigned, [place] [facility] [id number] [facility] 2023-03-02 11:37:00 2023-03-02 14:50:00 Outpatient P MARTHA LATIF [facility] [id number] [facility] 2023-03-02 11:37:00 2023-03-02 14:50:00 Hospital Encounter Martha Latif [facility] 1.2840.114 350.1.13.10 4.2.7.2.686 [id number] [facility] 2023-03-02 10:30:00 2023-03-02 11:22:42 Outpatient R MARTHA LATIF [facility] [id number] [facility] 2023-03-02 10:30:00 2023-03-02 11:22:42 Routine Visit Martha Latif [facility] 1.2840.114 350.1.13.10 4.2.7.2.686 [id number] 134 [id number] [facility] 2023-02-25 00:00:00 2023-02-25 00:00:00 Refill Martha Latif [facility] 1.2840.114 350.1.13.10 4.2.7.2.686 [id number] [facility] 2023-02-24 16:09:00 2023-02-24 18:10:00 Outpatient P MARTHA LATIF [facility] [id number] [facility] 2023-02-24 16:09:00 2023-02-24 18:10:00 Hospital Encounter Martha Latif [facility] 1.20.114 350.1.13.10 4.2.7.2.686 [id number] [facility] 2023-02-24 15:30:00 2023-02-24 15:44:27 Outpatient R MARTHA LAITF [facility] [id number] [facility] 2023-02-24 15:30:00 2023-02-24 15:44:27 Routine Visit Martha Latif [facility] 1.2840.114 350.1.13.10 4.2.7.2.686 [id number] [facility] 2023-02-24 14:45:00 2023-02-24 15:00:00 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 Worker Visit 2, Adc Lab Martha Latif [facility] BUILDING 1.2.840.114 350.1.13.10 4.2.7.2.686 [id number] [facility] 2023-02-13 00:00:00 2023-02-13 00:00:00 Orders Only Doctor Unassigned, [place] [facility] 1.2.840.114 350.1.13.10 4.2.7.2.686 [id number] [facility] 2023-02-12 15:30:00 2023-02-12 15:30:00 Outpatient R MARTHA LATIF [facility] [id number] [facility] 2023-02-10 14:15:00 2023-02-10 14:48:54 Routine Visit Martha Latif [facility] 1.2.840.114 350.1.13.10 4.2.7.2.686 [id number] [facility] 2023-02-10 09:00:00 2023-02-10 09:57:59 Outpatient R ZULMA ZARAGOZA [facility] [id number] [facility] 2023-02-10 09:00:00 2023-02-10 09:57:59 Office Visit Zulma Zaragoza [facility] 1.2.840.114 350.1.13.10 4.2.7.2.686 [id number] [facility] 2023-01-29 14:48:00 2023-01-30 15:25:[address]A LATIF [facility] [id number] [facility] 2023-01-29 14:48:00 2023-01-30 15:25:00 Emergency LauroNola Vien [facility] 1..840.114 350.1.13.10 4.2.7.2.686 [id number] [facility] 2023-01-29 13:49:00 2023-01-29 13:49:00 Outpatient P MARTHA LATIF [facility] [id number] [facility] 2023-01-29 13:45:00 2023-01-29 13:45:00 Routine Visit Martha Latif [facility] 1.84.114 350.1.13.10 4.2.7.2.686 [id number] [facility] 2023-01-29 13:45:00 2023-01-29 13:28:46 Outpatient R MRATHA LATIF [facility] [id number] [facility] 2023-01-26 00:00:00 2023-01-26 00:00:00 Refill Martha Latif [facility] 1.84.114 350.1.13.10 4.2.7.2.686 [id number] [facility] 2023-01-23 15:00:00 2023-01-23 15:10:40 Outpatient R MARTHA LATIF [facility] [id number] [facility] 2023-01-23 15:00:00 2023-01-23 15:10:40 Nurse Visit Nurse, [facility] Martha Latif [facility] 1.84.114 350.1.13.10 4.2.7.2.686 [id number] [facility] 2023-01-22 09:45:00 2023-01-22 09:47:39 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 Worker Visit 2, [facility] Lab Juan Parrish [facility] BUILDING 1.84.114 350.1.13.10 4.2.7.2.686 [id number] [facility] 2023-01-22 08:00:00 2023-01-22 08:30:04 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 Worker Visit Ultrasound, [facility] Juan Parrish [facility] 1.114 350.1.13.10 4.2.7.2.686 [id number] [facility] 2023-01-22 08:00:00 2023-01-22 08:30:04 Outpatient P JUAN PARRISH [facility] [id number] [facility] 2023-01-22 00:00:00 2023-01-22 00:00:00 Case Management Martha Latif [facility] BUILDING 1.2.840.114 350.1.13.10 4.2.7.2.686 [id number] [facility] 2023-01-18 12:42:00 2023-01-18 15:17:00 Outpatient [facility] [id number] [facility] 2023-01-18 12:42:00 2023-01-18 15:17:00 Emergency Adum Kusum Karen [facility] 1.2840.114 350.1.13.10 4.2.7.2.686 [id number] [facility] 2023-01-16 00:00:00 2023-01-16 00:00:00 Case Management Martha Latif [facility] 1.2.840.114 350.1.13.10 4.2.7.2.686 [id number] [facility] 2023-01-15 11:00:00 2023-01-15 11:32:36 Outpatient R MARTHA LATIF [facility] [id number] [facility] 2023-01-15 11:00:00 2023-01-15 11:32:36 Routine Visit Martha Latif [facility] 1.2.840.114 350.1.13.10 4.2.7.2.686 [id number] 134 [id number] [facility] 2022-12-28 00:00:00 2022-12-28 00:00:00 Refill Martha Latif [facility] 1..840.114 350.1.13.10 4.2.7.2.686 [id number] [facility] 2022-12-19 13:15:00 2022-12-19 13:46:56 Outpatient R MARTHA LATIF [facility] [id number] [facility] 2022-12-19 13:15:00 2022-12-19 13:46:56 Routine Visit Martha Latif [facility] 1..840.114 350.1.13.10 4.2.7.2.686 [id number] [facility] 2022-12-15 15:30:00 2022-12-15 15:30:00 Outpatient R MARTHA LATIF [facility] [id number] [facility] 2022-12-09 16:15:00 2022-12-09 16:15:00 Outpatient R MARTHA LATIF [facility] [id number] [facility] 2022-12-01 15:45:00 2022-12-01 15:45:00 Outpatient R MARTHA LATIF [facility] [id number] [facility] 2022-11-27 08:00:00 2022-11-27 09:00:00 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 Visit Ultrasound, Nimesh Goss [facility] [employer] [employer] [facility] 1..840.114 350.1.13.10 4.2.7.2.686 [id number] [facility] 2022-11-27 08:00:00 2022-11-27 08:00:00 Outpatient NIMESH VALENCIA SANGEETA [facility] [id number] [facility] 2022-11-24 00:00:00 2022-11-24 00:00:00 Refill Latif, Martha [facility] BUILDING 1.0.114 350.1.13.10 4.2.7.2.686 [id number] [facility] 2022-11-20 15:45:00 2022-11-20 15:45:00 Outpatient R MARTHA LATIF [facility] [id number] [facility] 2022-10-28 09:30:00 2022-10-28 10:16:38 Outpatient P SHIVANIJUAN [facility] [id number] [facility] 2022-10-28 09:30:00 2022-10-28 10:16:38 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 Worker Visit Ultrasound, Raymond ParrishJuan Herminia [facility] [place] [employer] [facility] 1.0.114 350.1.13.10 4.2.7.2.686 [id number] [facility] 2022-10-23 13:45:00 2022-10-23 13:57:38 Outpatient R MARTHA LATIF [facility] [id number] [facility] 2022-10-23 13:45:00 2022-10-23 13:57:38 Routine Visit Martha Latif [facility] BUILDING 1..114 350.1.13.10 4.2.7.2.686 [id number] [facility] 2022-10-23 00:00:00 2022-10-23 00:00:00 Patient Secure Msg Doctor Unassigned, [place] [facility] 1..114 350.1.13.10 4.2.7.2.686 [id number] [facility] 2022-10-07 00:00:00 2022-10-07 00:00:00 Telephone Martha Latif [facility] BUILDING 1..114 350.1.13.10 4.2.7.2.686 [id number] [facility] 2022-10-06 09:15:00 2022-10-06 09:30:00 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 Worker Visit 2, Adc Lab Martha Latif [facility] 1.2.840.114 350.1.13.10 4.2.7.2.686 [id number] [facility] 2022-10-06 09:15:00 2022-10-06 09:15:58 Outpatient R [facility] [id number] [facility] 2022-09-25 16:00:00 2022-09-25 16:38:31 Routine Visit Martha Latif [facility] 1.2.840.114 350.1.13.10 4.2.7.2.686 [id number] [facility] 2022-09-25 16:00:00 2022-09-25 16:38:31 Outpatient R MARTHA LATIF [facility] [id number] [facility] 2022-09-25 10:00:00 2022-09-25 10:15:00 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 Worker Visit 2, Adc Lab Martha Latif [facility] 1.2.840.114 350.1.13.10 4.2.7.2.686 [id number] [facility] 2022-09-19 23:29:00 2022-09-20 01:22:00 Emergency X TRISTIN VALENTE [facility] E[facility] [id number] [facility] 2022-09-19 23:29:00 2022-09-20 01:22:00 Emergency Tristin Valente [facility] 1.2.840.114 350.1.13.10 4.2.7.2.686 [id number] [facility] 2022-09-02 00:00:00 2022-09-02 00:00:00 Case Management Martha Latif [facility] 1..840.114 350.1.13.10 4.2.7.2.686 [id number] 134 [id number] [facility] 2022-08-28 14:00:00 2022-08-28 14:39:49 Outpatient R MARTHA LATIF [facility] [id number] [facility] 2022-08-28 14:00:00 2022-08-28 14:39:49 Initial Visit Martha Latif [facility] 1.840.114 350.1.13.10 4.2.7.2.686 [id number] [facility] 2022-08-28 00:00:00 2022-08-28 00:00:00 Orders Only Doctor Unassigned, [place] [facility] 1.84.114 350.1.13.10 4.2.7.2.686 [id number] [facility] 2022-07-23 22:31:00 2022-07-24 01:57:00 Emergency X [facility] [id number] [facility] 2022-07-23 22:31:00 2022-07-24 01:57:00 Emergency [place], [facility] 1.840.114 350.1.13.10 4.2.7.2.686 [id number] [facility] 2022-02-28 16:11:00 2022-03-03 21:05:00 Inpatient Watson Ross [facility] OB [id number] [facility] 2022-02-25 00:00:00 2022-02-25 00:00:00 Case Management [facility] 1..840.114 350.1.13.10 4.2.7.2.686 [id number] [facility] 2022-02-22 11:38:00 2022-02-22 16:40:00 Outpatient X KUSUM DUNBAR [facility] [id number] [facility] 2022-02-22 11:38:00 2022-02-22 16:40:00 Emergency Brittany Rmairez Vivian L [facility] 1.84.114 350.1.13.10 4.2.7.2.686 [id number] [facility] 2022-02-17 11:54:00 2022-02-17 17:36:00 Emergency Watson Nelson [facility] DAISHA [id number] [facility] 2021-09-04 09:20:00 2021-09-04 09:20:00 Outpatient ARLINE MILLER [facility] [id number] [facility] 2021-08-27 12:35:00 2021-08-27 13:02:00 Emergency KIKI ATKINSON [facility] ERT [id number] [facility] 2021-08-27 12:35:00 2021-08-27 13:02:00 Emergency Kiki Rod [facility] 1.840.114 350.1.13.10 4.2.7.2.686 [id number] [facility] 2021-08-27 00:00:00 2021-08-27 00:00:00 Orders Only Doctor Unassigned, [place] [facility] 1.84.114 350.1.13.10 4.2.7.2.686 [id number] [facility] 2021-07-09 13:15:00 2021-07-09 13:15:00 Outpatient SWETHA VILCHIS [facility] [id number] [facility] 2021-03-06 17:15:00 2021-03-06 17:30:00 [facility] 1.2.840.114 350.1.13.10 4.2.7.2.686 [id number] [facility] 2021-03-06 17:15:00 2021-03-06 17:15:00 [facility] [id number] [facility] 2021-03-06 17:15:00 2021-03-06 17:15:00 [facility] [id number] [facility] 2021-03-06 16:20:00 2021-03-06 17:07:18 [facility] 1.2.840.114 350.1.13.10 4.2.7.2.686 [id number] [facility] 2021-02-27 16:20:00 2021-02-27 17:00:00 [facility] 1.2.840.114 350.1.13.10 4.2.7.2.686 [id number] [facility] 2021-02-27 16:20:00 2021-02-27 16:20:00 [facility] [id number] [facility] 2021-02-27 00:00:00 2021-02-27 00:00:00 Orders Only Doctor Unassigned, [place] [facility] 1..840.114 350.1.13.10 4.2.7.2.686 [id number] [facility] 2021-02-26 15:40:00 2021-02-26 15:40:00 Outpatient ARLINE MILLER [facility] [id number] [facility] 2021-02-26 15:40:00 2021-02-26 15:40:00 Outpatient R ARLINE HARRIS [facility] [id number] [facility] 2020-11-26 08:20:00 2020-11-26 08:20:00 Outpatient R KAITLYNN BOX [facility] [id number] [facility] 2020-11-25 00:00:00 2020-11-25 00:00:00 Telephone [facility]?Ayaanpastor lewis Medical [facility] 1.84.114 350.1.13.10 4.2.7.2.686 [id number] [facility] 2020-11-23 14:19:47 2020-11-23 16:01:29 Urgent Care [facility]tran [facility] Medical Office Building 1..114 350.1.13.10 4.2.7.2.686 [id number] [facility] 2020-11-23 14:40:00 2020-11-23 14:40:00 Outpatient ANNE BOY [facility] [id number] [facility] 2020-08-24 10:32:00 2020-08-25 10:15:00 [facility] 1..114 350.1.13.10 4.2.7.2.686 [id number] [facility] 2020-08-24 09:54:25 2020-08-24 10:33:30 Urgent Care Provider, [facility] Ilan Villarreal [facility] Office Building One 1.84.114 350.1.13.10 4.2.7.2.686 [id number] [facility] 2020-08-24 10:00:00 2020-08-24 10:00:00 Outpatient ILAN DUBOIS [facility] [id number] [facility] 2020-08-24 00:00:00 2020-08-24 00:00:00 Orders Only Doctor Unassigned, [place] [facility] 1.114 350.1.13.10 4.2.7.2.686 [id number] [facility] 2020-02-02 14:54:00 2020-02-02 15:14:00 Laboratory Only Lab[facility] 1.114 350.1.13.10 4.2.7.2.686 [id number] [facility] 2020-02-02 15:00:00 2020-02-02 15:00:00 Outpatient Deny HURSTDINORAHEDGARDO FELDMANLIE [facility] [id number] [facility] 2020-01-26 16:15:55 2020-01-26 16:35:55 Laboratory Only Lab, [facility]ardo [facility] Office Building One 1.114 350.1.13.10 4.2.7.2.686 [id number] [facility] 2020-01-26 16:20:00 2020-01-26 16:20:00 Outpatient Deny DINORAHEDGARDO FELDMANLIE [facility] [id number] [facility] 2020-01-26 00:00:00 2020-01-26 00:00:00 Letter (Out) Doctor Unassigned, [place] [facility] 1.114 350.1.13.10 4.2.7.2.686 [id number] [facility] Results Test Description Test Time Test Comments Results Result Co mments Source [facility] with Ezsvogtyvxvu6820-20-28 12:12:54* Test Item Value Reference Range Interpretation Comme nts WBC (test code = 6690-2) 9.62 See_Comment [Automated messa ge] The system which generated this result transmitted reference range: 4.30 - 11.10 10*3/?L. The reference range was not used to interpret this result as normal/abnormal. RBC (test code = 789-8) 3.53 See_Comment L [Automated messa ge] The system which generated this result transmitted reference range: 3.93 - 5.25 10*6/?L. The reference range was not used to interpret this result as normal/abnormal. HGB (test code = 718-7) 9.5 g/dL 11.6-15.0 L HCT (test code = 4544-3) 29.8 % 35.7-45.2 L MCV (test code = 787-2) 84.4 fL 80.6-95.5 MCH (test code = 785-6) 26.9 pg 25.9-32.8 MCHC (test code = 786-4) 31.9 g/dL 31.6-35.1 RDW-SD (test code = 72246-5) 49.0 fL 39.0-49.9 RDW-CV (test code = 788-0) 16.3 % 12.0-15.5 H PLT (test code = 777-3) 194 See_Comment [Automated messa ge] The system which generated this result transmitted reference range: 166 - 358 10*3/?L. The reference range was not used to interpret this result as normal/abnormal. MPV (test code = 21653-8) 11.5 fL 9.5-12.9 NRBC/100 WBC (test code = 1492309343) 0.0 See_Comment [Automated [employer] ssage] The system which generated this result transmitted reference range: 0.0 - 10.0 /100 WBCs. The reference range was not used to interpret this result as normal/abnormal. NRBC x10^3 (test code = 3986630444) See_Comment [Automated messa ge] The system which generated this result transmitted reference range: 10*3/?L. The reference range was not used to interpret this result as normal/abnormal. GRAN MAT (NEUT) % (test code = 770-8) 70.7 % IMM GRAN % (test code = 9032630705) 0.40 % LYMPH % (test code = 736-9) 23.8 % MONO % (test code = 5905-5) 4.4 % EOS % (test code = 713-8) 0.6 % BASO % (test code = 706-2) 0.1 % GRAN MAT x10^3(ANC) (test code = 8479476626) 6.80 10*3/uL 1.88-7.09 IMM GRAN x10^3 (test code = 6978805221) 0.04 10*3/uL 0.00-0.06 LYMPH x10^3 (test code = 731-0) 2.29 10*3/uL 1.32-3.29 MONO x10^3 (test code = 742-7) 0.42 10*3/uL 0.33-0.92 EOS x10^3 (test code = 711-2) 0.06 10*3/uL 0.03-0.39 BASO x10^3 (test code = 704-7) 0.01-0.07 Lab Interpretation (test code = 31018-7) Abnormal [facility] ([facility]) IMMUNE [id number] 19:03:30* Test Item Value Reference Range Interpretation Comme nts RHIG CANDIDATE? (test code = 5188) Yes- see comment A Patient is a candidate for RhIg- Patient is Rh Negative and baby is Rh Positive.Performe d at [facility] Laboratory [facility] Blood [address] [place], [place] [id number] Free: [phone] No. [id number] Lab Interpretation (test code = 95604-6) Abnormal [facility] Hospital[facility]HO (D) IMMUNE [id number] 19:03:30* Test Item Value Reference Range Interpretation Comme nts RHIG CANDIDATE? (test code = 5188) Yes- see comment A Patient is a candidate for RhIg- Patient is Rh Negative and baby is Rh Positive.Performe d at [facility] Laboratory [facility] Blood [address] [place], [place] [id number] Free: [phone] No. [id number] Lab Interpretation (test code = 45219-3) Abnormal [facility] and Screen - ONCE [id number] 12:13:00 * Test Item Value Reference Range Interpretation Comme nts ABO & RH (test code = 20) A Negative IAT (test code = 1185) Negative [facility] Screen - ONCE [id number] 12:13:00 * Test Item Value Reference Range Interpretation Comme nts ABO & RH (test code = 20) A Negative IAT (test code = 1185) Negative [facility]HIV [facility]/2 Ag-Ab with [id number] 19:49:39* Test Item Value Reference Range Interpretation Comme nts HIV Semi-quantitative (test code = 86125-2) 0.18 Negative KARIE (test code = KARIE) Non-reactive for HIV-1 antigen and HIV-1/HIV-2 antibodies. ?No laboratory evidence of HIV infection. ?Repeat in 2-4 weeks if acute HIV infection is suspected. [facility] HospitalUric Acid Apwwr4538-17-65 19:08:32* Test Item Value Reference Range Interpretation Comme [facility] URIC ACID (test code = 5299663888) 3.6 mg/dL 2.9-6.0 Lab Interpretation (test cod e = 01838-0) Normal [facility] Hospital[facility] (Asparate Amino Transfer)2023-03-02 19:08:12* Test Item Value Reference Range Interpretation Comme nts AST(SGOT) (test code = 4944890530) 18 U/L 13-40 Lab Interpretation (test cod e = 38718-0) Normal [facility] HospitalAlanine Amino Transferase (SGPT)2023-03-02 19:08:12* Test Item Value Reference Range Interpretation Comme nts ALTv (test code = 1742-6) 11 U/L 5-35 Lab Interpretation (test cod e = 80624-9) Normal [facility] HospitalSerum [id number] 19:07:52* Test Item Value Reference Range Interpretation Comme nts CREATININE (test code = 0881046830) 0.51 mg/dL 0.50-1.04 eGFR (test code = 07697-4) 138.1 mL/min/1.73m2 CKD-EPI eGFR (20 21). Assuming creatinine has been stable day-to-day for at least three months, the eGFR indicates Category G1 (>= 90 mL/min/1.73 m2) [facility] Jkfiofivmkeac9058-18-41 19:07:51* Test Item Value Reference Range Interpretation Comme nts LDH (test code = 7276245347) 189 U/L 120-246 Slight hemolysis Lab Interpretation (test cod e = 75589-1) Normal [facility] with Ntszcbirkpdy7087-60-51 18:44:32* Test Item Value Reference Range Interpretation Comme nts WBC (test code = 6690-2) 11.60 See_Comment H [Automated messa ge] The system which generated this result transmitted reference range: 4.30 - 11.10 10*3/?L. The reference range was not used to interpret this result as normal/abnormal. RBC (test code = 789-8) 3.86 See_Comment L [Automated messa ge] The system which generated this result transmitted reference range: 3.93 - 5.25 10*6/?L. The reference range was not used to interpret this result as normal/abnormal. HGB (test code = 718-7) 10.3 g/dL 11.6-15.0 L HCT (test code = 4544-3) 32.0 % 35.7-45.2 L MCV (test code = 787-2) 82.9 fL 80.6-95.5 MCH (test code = 785-6) 26.7 pg 25.9-32.8 MCHC (test code = 786-4) 32.2 g/dL 31.6-35.1 RDW-SD (test code = 48155-6) 47.9 fL 39.0-49.9 RDW-CV (test code = 788-0) 16.2 % 12.0-15.5 H PLT (test code = 777-3) 240 See_Comment [Automated messa ge] The system which generated this result transmitted reference range: 166 - 358 10*3/?L. The reference range was not used to interpret this result as normal/abnormal. MPV (test code = 96543-7) 11.4 fL 9.5-12.9 NRBC/100 WBC (test code = 8514328639) 0.0 See_Comment [Automated me ssage] The system which generated this result transmitted reference range: 0.0 - 10.0 /100 WBCs. The reference range was not used to interpret this result as normal/abnormal. NRBC x10^3 (test code = 3085877942) See_Comment [Automated messa ge] The system which generated this result transmitted reference range: 10*3/?L. The reference range was not used to interpret this result as normal/abnormal. GRAN MAT (NEUT) % (test code = 770-8) 72.1 % IMM GRAN % (test code = 2518408438) 0.30 % LYMPH % (test code = 736-9) 22.6 % MONO % (test code = 5905-5) 3.5 % EOS % (test code = 713-8) 1.3 % BASO % (test code = 706-2) 0.2 % GRAN MAT x10^3(ANC) (test code = 4659810715) 8.36 10*3/uL 1.88-7.09 H IMM GRAN x10^3 (test code = 7642238440) 0.04 10*3/uL 0.00-0.06 LYMPH x10^3 (test code = 731-0) 2.62 10*3/uL 1.32-3.29 MONO x10^3 (test code = 742-7) 0.41 10*3/uL 0.33-0.92 EOS x10^3 (test code = 711-2) 0.15 10*3/uL 0.03-0.39 BASO x10^3 (test code = 704-7) 0.01-0.07 Lab Interpretation (test code = 83175-1) [facility] ONCE [id number] 18:40:00 * Test Item Value Reference Range Interpretation Comme nts ABO & RH (test code = 20) A Negative IAT (test code = 1185) Negative [facility] w/o Specific [id number] 16:28:00* Test Item Value Reference Range Interpretation Comme nts POCT PH U (test code = 3254) 6 mg/dl 5-8 POCT U LEUK EST (test code = 3263) Negative Negative - Negative POCT U NIT (test code = 3262) Negative Negative - Negati ve POCT U PROT (test code = 3259) Trace Negative - Negat dwight POCT U GLU (test code = 3256) Normal Negative - Negati ve POCT U KETONE (test code = 3258) Negative Negative - Neg ative POCT U BLD (test code = 3257) Negtive Negative - Negati ve [facility] Urinalysis w/o Specific [id number] 21:18:00* Test Item Value Reference Range Interpretation Comme nts POCT PH U (test code = 3254) n/a 5-8 POCT U LEUK EST (test code = 3263) n/a Negative - Negative POCT U NIT (test code = 3262) n/a Negative - Negati ve POCT U PROT (test code = 3259) Negative Negative - Negat dwight POCT U GLU (test code = 3256) Normal Negative - Negati ve POCT U KETONE (test code = 3258) n/a Negative - Neg ative POCT U BLD (test code = 3257) n/a Negative - Negati ve [facility] URINALYSIS W/O SPECIFIC [id number] 20:21:00* Test Item Value Reference Range Interpretation Comme nts POCT PH U (test code = 3254) n/a 5-8 POCT U LEUK EST (test code = 3263) n/a Negative - Negative POCT U NIT (test code = 3262) n/a Negative - Negati ve POCT U PROT (test code = 3259) Trace Negative - Negat dwight POCT U GLU (test code = 3256) Negative Negative - Negati ve POCT U KETONE (test code = 3258) n/a Negative - Neg ative POCT U BLD (test code = 3257) n/a Negative - Negati ve [facility]. METABOLIC PANEL ([id number])2023-01-29 23:11:51* Test Item Value Reference Range Interpretation Comme nts NA (test code = 6371480647) 133 mmol/L 135-145 L K (test code = 6404052072) 4.1 mmol/L 3.5-5.0 CL (test code = 4130189772) 104 mmol/L 98-108 CO2 TOTAL (test code = 9919760842) 18 mmol/L 23-31 L AGAP (test code = 5280656397) 11 2-16 BUN (test code = 7798875207) 6 mg/dL 7-23 L GLUCOSE (test code = 6753217528) 84 mg/dL 70-110 CREATININE (test code = 0869757762) 0.58 mg/dL 0.50-1.04 TOTAL BILI (test code = 0896274627) 0.4 mg/dL 0.1-1.1 CALCIUM (test code = 4977298982) 8.9 mg/dL 8.6-10.6 T PROTEIN (test code = 7855399736) 7.2 g/dL 6.3-8.2 ALBUMIN (test code = 4125731636) 3.7 g/dL 3.5-5.0 ALK PHOS (test code = 5380369477) 148 U/L 34-122 H ALTv (test code = 1742-6) 15 U/L 5-35 AST(SGOT) (test code = 5611997027) 21 U/L 13-40 eGFR (test code = 74738-2) 133.9 mL/min/1.73m2 CKD-EPI eGFR (2020). Assuming creatinine has been stable day-to-day for at least three months, the eGFR indicates Category G1 (>= 90 mL/min/1.73 m2) Lab Interpretation (test code = 01084-9) Abnormal [facility] WITH [id number] 22:57:46* Test Item Value Reference Range Interpretation Comme nts WBC (test code = 6690-2) 7.82 See_Comment [[employer]ated [employer]] The system which generated this result transmitted reference range: 4.30 - 11.10 10*3/?L. The reference range was not used to interpret this result as normal/abnormal. RBC (test code = 789-8) 4.01 See_Comment [[employer]] The system which generated this result transmitted reference range: 3.93 - 5.25 10*6/?L. The reference range was not used to interpret this result as normal/abnormal. HGB (test code = 718-7) 10.7 g/dL 11.6-15.0 L HCT (test code = 4544-3) 33.0 % 35.7-45.2 L MCV (test code = 787-2) 82.3 fL 80.6-95.5 MCH (test code = 785-6) 26.7 pg 25.9-32.8 MCHC (test code = 786-4) 32.4 g/dL 31.6-35.1 RDW-SD (test code = 15059-7) 43.9 fL 39.0-49.9 RDW-CV (test code = 788-0) 14.9 % 12.0-15.5 PLT (test code = 777-3) 203 See_Comment [Automated [employer]] The system which generated this result transmitted reference range: 166 - 358 10*3/?L. The reference range was not used to interpret this result as normal/abnormal. MPV (test code = 72772-9) 11.0 fL 9.5-12.9 NRBC/100 WBC (test code = 1442033647) 0.0 See_Comment [Automated [employer]] The system which generated this result transmitted reference range: 0.0 - 10.0 /100 WBCs. The reference range was not used to interpret this result as normal/abnormal. NRBC x10^3 (test code = 7593541401) See_Comment [Automated [employer]] The system which generated this result transmitted reference range: 10*3/?L. The reference range was not used to interpret this result as normal/abnormal. GRAN MAT (NEUT) % (test code = 770-8) 79.5 % IMM GRAN % (test code = 5197373998) 0.90 % LYMPH % (test code = 736-9) 12.1 % MONO % (test code = 5905-5) 7.2 % EOS % (test code = 713-8) 0.0 % BASO % (test code = 706-2) 0.3 % GRAN MAT x10^3(ANC) (test code = 1843006134) 6.22 10*3/uL 1.88-7.09 IMM GRAN x10^3 (test code = 8648879326) 0.07 10*3/uL 0.00-0.06 H LYMPH x10^3 (test code = 731-0) 0.95 10*3/uL 1.32-3.29 L MONO x10^3 (test code = 742-7) 0.56 10*3/uL 0.33-0.92 EOS x10^3 (test code = 711-2) 0.03-0.39 L BASO x10^3 (test code = 704-7) 0.01-0.07 Lab Interpretation (test code = 27508-0) Abnormal [facility] URINALYSIS W/O SPECIFIC [id number] 19:23:00* Test Item Value Reference Range Interpretation Comme nts POCT PH U (test code = 3254) 6 mg/dl 5-8 POCT U LEUK EST (test code = 3263) negative Negative - Negative POCT U NIT (test code = 3262) negative Negative - Negati ve POCT U PROT (test code = 3259) 30 Negative - Negat dwight POCT U GLU (test code = 3256) negative Negative - Negati ve POCT U KETONE (test code = 3258) negative Negative - Neg ative POCT U BLD (test code = 3257) negative Negative - Negati ve [facility] URINALYSIS W/O SPECIFIC [id number] 16:03:00* Test Item Value Reference Range Interpretation Comme nts POCT PH U (test code = 3254) 7 mg/dl 5-8 POCT U LEUK EST (test code = 3263) ++ Negative - Negative POCT U NIT (test code = 3262) Negative Negative - Negati ve POCT U PROT (test code = 3259) 30 Negative - Negat dwight POCT U GLU (test code = 3256) Normal Negative - Negati ve POCT U KETONE (test code = 3258) Negative Negative - Neg ative POCT U BLD (test code = 3257) About 50 Negative - Negati ve [facility] URINALYSIS W/O SPECIFIC [id number] 18:28:00* Test Item Value Reference Range Interpretation Comme nts POCT PH U (test code = 3254) n/a 5-8 POCT U LEUK EST (test code = 3263) n/a Negative - Negative POCT U NIT (test code = 3262) n/a Negative - Negati ve POCT U PROT (test code = 3259) Negative Negative - Negat dwight POCT U GLU (test code = 3256) Normal Negative - Negati ve POCT U KETONE (test code = 3258) n/a Negative - Neg ative POCT U BLD (test code = 3257) n/a Negative - Negati ve [facility] URINALYSIS W/O SPECIFIC [id number] 18:41:00* Test Item Value Reference Range Interpretation Comme nts POCT PH U (test code = 3254) n/a 5-8 POCT U LEUK EST (test code = 3263) n/a Negative - Negative POCT U NIT (test code = 3262) n/a Negative - Negati ve POCT U PROT (test code = 3259) negative Negative - Negat dwight POCT U GLU (test code = 3256) negative Negative - Negati ve POCT U KETONE (test code = 3258) n/a Negative - Neg ative POCT U BLD (test code = 3257) n/a Negative - Negati ve [facility] URINALYSIS W/O SPECIFIC [id number] 21:22:00* Test Item Value Reference Range Interpretation Comme nts POCT PH U (test code = 3254) n/a 5-8 POCT U LEUK EST (test code = 3263) n/a Negative - Negative POCT U NIT (test code = 3262) n/a Negative - Negati ve POCT U PROT (test code = 3259) Negative Negative - Negat dwight POCT U GLU (test code = 3256) Negative Negative - Negati ve POCT U KETONE (test code = 3258) n/a Negative - Neg ative POCT U BLD (test code = 3257) n/a Negative - Negati ve [facility] WITH [id number] 05:40:12* Test Item Value Reference Range Interpretation Comme nts WBC (test code = 6690-2) 7.93 See_Comment [Automated messa ge] The system which generated this result transmitted reference range: 4.30 - 11.10 10*3/?L. The reference range was not used to interpret this result as normal/abnormal. RBC (test code = 789-8) 4.33 See_Comment [Automated messa ge] The system which generated this result transmitted reference range: 3.93 - 5.25 10*6/?L. The reference range was not used to interpret this result as normal/abnormal. HGB (test code = 718-7) 11.5 g/dL 11.6-15.0 L HCT (test code = 4544-3) 35.0 % 35.7-45.2 L MCV (test code = 787-2) 80.8 fL 80.6-95.5 MCH (test code = 785-6) 26.6 pg 25.9-32.8 MCHC (test code = 786-4) 32.9 g/dL 31.6-35.1 RDW-SD (test code = 72592-8) 42.9 fL 39.0-49.9 RDW-CV (test code = 788-0) 14.6 % 12.0-15.5 PLT (test code = 777-3) 220 See_Comment [Automated messa ge] The system which generated this result transmitted reference range: 166 - 358 10*3/?L. The reference range was not used to interpret this result as normal/abnormal. MPV (test code = 00105-0) 11.6 fL 9.5-12.9 NRBC/100 WBC (test code = 9704253918) 0.0 See_Comment [Automated [employer]] The system which generated this result transmitted reference range: 0.0 - 10.0 /100 WBCs. The reference range was not used to interpret this result as normal/abnormal. NRBC x10^3 (test code = 1905552491) See_Comment [[employer]] The system which generated this result transmitted reference range: 10*3/?L. The reference range was not used to interpret this result as normal/abnormal. GRAN MAT (NEUT) % (test code = 770-8) 66.8 % IMM GRAN % (test code = 3402953570) 0.30 % LYMPH % (test code = 736-9) 23.8 % MONO % (test code = 5905-5) 6.8 % EOS % (test code = 713-8) 2.0 % BASO % (test code = 706-2) 0.3 % GRAN MAT x10^3(ANC) (test code = 8858297532) 5.30 10*3/uL 1.88-7.09 IMM GRAN x10^3 (test code = 2540422849) 0.00-0.06 LYMPH x10^3 (test code = 731-0) 1.89 10*3/uL 1.32-3.29 MONO x10^3 (test code = 742-7) 0.54 10*3/uL 0.33-0.92 EOS x10^3 (test code = 711-2) 0.16 10*3/uL 0.03-0.39 BASO x10^3 (test code = 704-7) 0.01-0.07 Lab Interpretation (test code = 51218-4) [facility]normal [facility] METABOLIC PANEL ([id number])2022-09-20 05:37:49* Test Item Value Reference Range Interpretation Comme nts NA (test code = 3700530914) 135 mmol/L 135-145 K (test code = 5474416750) 4.0 mmol/L 3.5-5.0 CL (test code = 9989673438) 104 mmol/L 98-108 CO2 TOTAL (test code = 2200287277) 22 mmol/L 23-31 L AGAP (test code = 2980120342) 9 2-16 BUN (test code = 7003341548) 6 mg/dL 7-23 L GLUCOSE (test code = 1013874439) 96 mg/dL 70-110 CREATININE (test code = 0663989857) 0.55 mg/dL 0.50-1.04 TOTAL BILI (test code = 8695855827) 0.3 mg/dL 0.1-1.1 CALCIUM (test code = 5987897085) 9.1 mg/dL 8.6-10.6 T PROTEIN (test code = 9129146736) 6.4 g/dL 6.3-8.2 ALBUMIN (test code = 9908582879) 3.7 g/dL 3.5-5.0 ALK PHOS (test code = 2382256087) 73 U/L 34-122 ALTv (test code = 1742-6) 16 U/L 5-35 AST(SGOT) (test code = 2272922630) 17 U/L 13-40 eGFR (test code = 0537062043) 142.4 mL/min/1.73m2 KARIE (test code = KARIE) Association of Glomerular Filtration Rate (GFR) and Staging of Kidney Disease* + --+ --+ ------+| GFR (mL/min/1.73 m2) ?| With Kidney Damage ?| ?Without Kidney Damage+ --------+ --------+ +| ?>90 ?| ?Stage one ?| ? Normal ?+ ---+ ---+ -------+| ?60-89 ?| ?Stage two ?| ? Decreased GFR ? + --+ --+ ------+| ?30-59 ?| ?Stage three ?| ? Stage three ? + --+ --+ ------+| ?15-29 ?| ?Stage four ? | ? Stage four ?+ ---+ ---+ -------+| ?<15 (or dialysis) ? ?| ?Stage five ? | ? Stage five ?+ ---+ ---+ -------+ *Each stage assumes the associated GFR level has been in effect for at least three months. ?Stages 1 to 5, with or without kidney disease, indicate chronic kidney disease. Notes: Determination of stages one and two (with eGFR >59mL/min/1.73 m2) requires estimation of kidney damage for at least three months as defined by structural or functional abnormalities of the kidney, manifested by either:Pathological abnormalities or Markers of kidney damage (including abnormalities in the composition of the blood or urine or abnormalities in imaging tests). Lab Interpretation (test code = 09406-6) [facility]normal [facility]IPASE2023-07-[facility] 05:37:29* Test Item Value Reference Range Interpretation Comme nts LIPASE (test code = 7699812215) 51 U/L 0-220 Lab Interpretation (test cod e = 66336-9) Normal [facility] W/O SPECIFIC [id number] 19:06:00* Test Item Value Reference Range Interpretation Comme nts POCT PH U (test code = 3254) 5 mg/dl 5-8 POCT U LEUK EST (test code = 3263) ++ Negative - Negative POCT U NIT (test code = 3262) Negative Negative - Negati ve POCT U PROT (test code = 3259) Negative Negative - Negat dwight POCT U GLU (test code = 3256) Normal Negative - Negati ve POCT U KETONE (test code = 3258) Trace Negative - Neg ative POCT U BLD (test code = 3257) Negative Negative - Negati ve [facility] [id number] 03:30:00* Test Item Value Reference Range Interpretation Comme nts POCT PREG (test code = 1605) Positive On board controls acceptable with C Line (test code = 3574) Yes POCT PREG LOT # (test code = 3575) [id number] POCT PREG TEST DATE ( test code = 3576) 2023-10-22 Lab Interpretation (test cod e = 30748-0) Normal [facility]PRE[facility] METABOLIC [id number] 19:25:00* Test Item Value Reference Range Interpretation Comme nts SODIUM (test code = NA) 132 mEq/L 135-145 L POTASSIUM (test code = K) 4.0 mEq/L 3.5-5.0 N CHLORIDE (test code = CL) 100 mEq/L 100-115 N CARBON DIOXIDE (test code = CO2) 20 mEq/L 22-31 L ANION GAP (test code = GAP) 16.00 10-20 N GLUCOSE (test code = GLU) 70 mg/dL 65-110 N BLOOD UREA NITROGEN (test code = BUN) 6 mg/dL 7-18 L GLOMERULAR FILTRATION RATE (test code = GFR) 133 ml/min >60 N The Glomerular Filtration Rate is a calculated parameterbased on serum Creatinine, patient age and sex. GFR valuesless than 60 mL/min/1.73 square meters are indicative ofChronic Kidney Disease. Values less than 15 mL/min/1.73square meters indicate Kidney failure. The calculation forGFR is based on the CKD-EPI (2020) calculation. This formulais race indifferent and is the recommended formula for GFRby the National Kidney Foundation for Adults.The GFR will not calculate if the sex is unknown or if thepatient's age is <18 years. CREATININE (test code = CREAT) 0.6 mg/dL 0.5-1.0 N TOTAL PROTEIN (test code = PROT) 6.3 gm/dL 6.3-8.2 N ALBUMIN (test code = ALB) 2.5 gm/dL 3.4-4.8 L CALCIUM (test code = CA) 8.8 mg/dL 8.4-10.2 N BILIRUBIN TOTAL (test code = BILT) 0.3 mg/dL 0.2-1.0 N SGOT/AST (test code = AST) 20 units/L 15-37 N SGPT/ALT (test code = ALT) 16 units/L 12-78 N ALKALINE PHOSPHATASE TOTAL (test code = ALKP) 174 units/L 46-116 H CBC W/AUTO [id number] 19:16:00* Test Item Value Reference Range Interpretation Comme nts WHITE BLOOD CELL (test code = WBC) [...] pg 27.3-33.9 N MEAN CELL HGB CONCETRATION ( test code = MCHC) 33.2 gm/dL 32.0-34.2 N RED CELL DISTRIBUTION WIDTH (test code = RDW) 15.2 % 12.2-16.3 N PLATELET COUNT (test code = PLT) 197 K/mm3 134-363 N MEAN PLATELET VOLUME (test c ode = MPV) 11.7 fL 9.2-12.7 N NEUTROPHIL % (test code = NT%) 81.2 [...] = BA#) 0.0 K/mm3 RBC MORPHOLOGY REQUIRED (raul t code = RBCM) NORMAL NORMAL PLATELET MORPHOLOGY REQUIRED (test code = PLTMR) NORMAL NORMAL RUPTURE OF [id number] 18:06:00* Test Item Value Reference Range Interpretation Comme nts RUPTURE OF MEMBRANES (test c ode = ROM) RUPTURED AG HEPATITIS B [id number] 17:59:00* Test Item Value Reference Range Interpretation Comme nts AG HEPATITIS B SURFACE (test code = HBSAG) NONREACTIVE NONREACTIVE AB HEPATITIS C [id number] 17:59:00* Test Item Value Reference Range Interpretation Comme nts AB HEPATITIS C (test code = HCVAB) NONREACTIVE NONREACTIVE SIGNAL TO CUTOFF (test code = CUTOFF) 0.13 <0.80 N AB [id number] 17:59:00* Test Item Value Reference Range Interpretation Comme nts AB TREPONEMA (test code = TREPAB) NONREACTIVE NONREACTIVE AB HIV 1 17:59:00* Test Item Value Reference Range Interpretation Comme nts AB HIV 1 2 (test code = VFN51VA) NONREACTIVE NONREACTIVE Done by [employer] HIV Ag/Ab Combo Screen COVID 19 Asymptomatic IH [id number] 15:35:00* Test Item Value Reference Range Interpretation Comme nts COVID 19 Asymptomatic IH AG (test code = COVNONPUIAG) NEGATIVE NEGATIVE This test has be en authorized only for the detection ofproteins from SARS-CoV-2, not for any other viruses orpathogens. Negative results should be treated as presumptive andconfirmed with a molecular assay, if necessary for patientmanagement. Negative results do not rule out COVID-19 andshould not be used as the sole basis for treatment orpatient management decisions, including infection controldecisions. Negative results should be considered in thecontext of a patient's recent exposures, history and thepresence of clinical signs and symptoms consistent withCOVID-19. This test has not been FDA cleared or approved; the test hasbeen authorized by FDA under an Emergency Use Authorization(EUA) for use by laboratories certified under the CLIA thatmeet the requirements to perform moderate, high or waivedcomplexity tests. This test is authorized for use at thePoint of Care (POC), i.e., in patient care settingsoperating under a CLIA Certificate of Waiver, Certificate ofCompliance, or Certificate of Accreditation. This test is only authorized for the duration of thedeclaration that circumstances exist justifying theauthorization of emergency use of in vitro diagnostic testsfor detection and/or diagnosis of COVID-19 under Jiexdxn892(b)(1) of the Act, 21 U.S.C. 360bbb-3(b)(1), unless theauthorization is terminated or revoked sooner. COMPREHENSIVE METABOLIC [id number] 14:46:00* Test Item Value Reference Range Interpretation Comme nts SODIUM (test code = NA) 132 mEq/L 135-145 L POTASSIUM (test code = K) 4.3 mEq/L 3.5-5.0 N CHLORIDE (test code = CL) 99 mEq/L 100-115 L CARBON DIOXIDE (test code = CO2) 24 mEq/L 22-31 N ANION GAP (test code = GAP) 13.80 10-20 N GLUCOSE (test code = GLU) 69 mg/dL 65-110 N BLOOD UREA NITROGEN (test code = BUN) 7 mg/dL 7-18 N GLOMERULAR FILTRATION RATE (test code = GFR) 109 ml/min >60 N The Glomerular Filtration Rate is a calculated parameterbased on serum Creatinine, patient age and sex. GFR valuesless than 60 mL/min/1.73 square meters are indicative ofChronic Kidney Disease. Values less than 15 mL/min/1.73square meters indicate Kidney failure. The calculation forGFR is based on the CKD-EPI (2020) calculation. This formulais race indifferent and is the recommended formula for GFRby the National Kidney Foundation for Adults.The GFR will not calculate if the sex is unknown or if thepatient's age is <18 years. CREATININE (test code = CREAT) 0.8 mg/dL 0.5-1.0 N TOTAL PROTEIN (test code = PROT) 6.9 gm/dL 6.3-8.2 N ALBUMIN (test code = ALB) 2.8 gm/dL 3.4-4.8 L CALCIUM (test code = CA) 9.2 mg/dL 8.4-10.2 N BILIRUBIN TOTAL (test code = BILT) 0.3 mg/dL 0.2-1.0 N SGOT/AST (test code = AST) 21 units/L 15-37 N SGPT/ALT (test code = ALT) 19 units/L 12-78 N ALKALINE PHOSPHATASE TOTAL (test code = ALKP) 192 units/L 46-116 H CBC W/AUTO [id number] 14:31:00* Test Item Value Reference Range Interpretation Comme nts WHITE BLOOD CELL (test code = WBC) [...] pg 27.3-33.9 N MEAN CELL HGB CONCETRATION ( test code = MCHC) 32.5 gm/dL 32.0-34.2 N RED CELL DISTRIBUTION WIDTH (test code = RDW) 14.9 % 12.2-16.3 N PLATELET COUNT (test code = PLT) 214 K/mm3 134-363 N MEAN PLATELET VOLUME (test c ode = MPV) 11.2 fL 9.2-12.7 N NEUTROPHIL % (test code = NT%) 84.1 [...] = BA#) 0.0 K/mm3 RBC MORPHOLOGY REQUIRED (raul t code = RBCM) NORMAL NORMAL PLATELET MORPHOLOGY REQUIRED (test code = PLTMR) NORMAL NORMAL UR PROTEIN/CREATININE [id number] 21:15:00* Test Item Value Reference Range Interpretation Comme nts UR PROTEIN RANDOM (test code = PROTU) 42.0 mg/dL UR CREATININE RANDOM (test c ode = CREATU) 194.5 mg/dL PROTEIN/CREATININE RATIO (te st code = P/CRATIO) 215.9000 COMPREHENSIVE METABOLIC [id number] 14:51:00* Test Item Value Reference Range Interpretation Comme nts SODIUM (test code = NA) 135 mEq/L 135-145 N POTASSIUM (test code = K) 4.1 mEq/L 3.5-5.0 N CHLORIDE (test code = CL) 102 mEq/L 100-115 N CARBON DIOXIDE (test code = CO2) 25 mEq/L 22-31 N ANION GAP (test code = GAP) 12.30 10-20 N GLUCOSE (test code = GLU) 87 mg/dL 65-110 N BLOOD UREA NITROGEN (test code = BUN) 8 mg/dL 7-18 N GLOMERULAR FILTRATION RATE (test code = GFR) 133 ml/min >60 N The Glomerular Filtration Rate is a calculated parameterbased on serum Creatinine, patient age and sex. GFR valuesless than 60 mL/min/1.73 square meters are indicative ofChronic Kidney Disease. Values less than 15 mL/min/1.73square meters indicate Kidney failure. The calculation forGFR is based on the CKD-EPI (202) calculation. This formulais race indifferent and is the recommended formula for GFRby the National Kidney Foundation for Adults.The GFR will not calculate if the sex is unknown or if thepatient's age is <18 years. CREATININE (test code = CREAT) 0.6 mg/dL 0.5-1.0 N TOTAL PROTEIN (test code = PROT) 6.1 gm/dL 6.3-8.2 L ALBUMIN (test code = ALB) 2.7 gm/dL 3.4-4.8 L CALCIUM (test code = CA) 9.0 mg/dL 8.4-10.2 N BILIRUBIN TOTAL (test code = BILT) 0.1 mg/dL 0.2-1.0 L SGOT/AST (test code = AST) 10 units/L 15-37 L SGPT/ALT (test code = ALT) 10 units/L 12-78 L ALKALINE PHOSPHATASE TOTAL (test code = ALKP) 169 units/L 46-116 H URINALYSIS [id number] 14:26:00* Test Item Value Reference Range Interpretation Comme nts UA COLOR (test code = COLU) YELLOW YELLOW UA APPEARANCE (test code = APPU) Slightly-Cloudy CLEAR UA GLUCOSE DIPSTICK (test code = DGLUU) NEGATIVE NEG UA BILIRUBIN DIPSTICK (test code = BILU) NEGATIVE NEG UA KETONE DIPSTICK (test cod e = KETU) NEGATIVE NEG UA SPECIFIC GRAVITY (test code = SGU) 1.027 1.001-1.035 N UA BLOOD DIPSTICK (test code = MAKENZIE) NEG NEG UA PH DIPSTICK (test code = STAN) 6.0 5-9 UA PROTEIN DIPSTICK (test code = PROU) NEGATIVE NEG UA UROBILINIOGEN DIPSTICK (test code = URO) NEGATIVE mg/dL NEG UA NITRITE DIPSTICK (test code = TORSTEN) NEG NEG UA LEUKOCYTE ESTERASE DIPSTICK (test code = LEUU) 2+ NEG A UA WBC (test code = WBCU) 3-5 #/hpf NONE SEEN A UA RBC (test code = RBCU) 6-10 #/hpf NONE SEEN A UA EPITHELIAL CELLS (test code = EPIU) MODERATE #/HPF RARE-FEW A UA BACTERIA (test code = BACU) RARE /HPF RARE-FEW UA MUCUS (test code = MUCU) RARE NONE SEEN URINE SAMPLE: CLEAN CATCHCBC W/AUTO [id number] 14:10:00* Test Item Value Reference Range Interpretation Comme nts WHITE BLOOD CELL (test code = WBC) [...] pg 27.3-33.9 L MEAN CELL HGB CONCETRATION ( test code = MCHC) 32.1 gm/dL 32.0-34.2 N RED CELL DISTRIBUTION WIDTH (test code = RDW) 14.4 % 12.2-16.3 N PLATELET COUNT (test code = PLT) 221 K/mm3 134-363 N MEAN PLATELET VOLUME (test c ode = MPV) 11.8 fL 9.2-12.7 N NEUTROPHIL % (test code = NT%) 76.6 [...] = BA#) 0.0 K/mm3 RBC MORPHOLOGY REQUIRED (raul t code = RBCM) NORMAL NORMAL PLATELET MORPHOLOGY REQUIRED (test code = PLTMR) NORMAL NORMAL History and Physical Notes Date/Time Note Provider Source 2023-03-03 05:53:29 [id number] Blanche/P/Vanesaz/J1leyHDS [id number] ormatting of this note is different from the original.TRIAGE HISTORY & PHYSICALIDENTIFYING DATACarmen Yi is 17 year old, /White, 38w0d, female with ANDREA 03/17/2023, Based on last menstrual period of 06/10/2022.: 2003MRN: [id number] Care Physician: Kaitlynn Edwards COMPLAINTPrimary CDHISTORY OF PRESENT ILLNESSShahzadda Danita Yi is a 17 year old female @ 38w0d with CHTN admitted for primary CD due to active genital herpes lesions.+FM. No VB, LOF. + irregular CTX since presentation. No pre-eclampsia sx or other complaints.PAST OBSTETRIC HISTORYOB HistoryGravida Para Term AB Living2 1 1SAB IAB Ectopic Multiple Live Births# Outcome Date GA Lbr Harpal/2nd Weight Sex Delivery Anes PTL Lv2 Current1 Term 03/02/22 38w2d 3118 g F Vag-Spont FDPAST MEDICAL HISTORYProblem list:Patient Active Problem ListDiagnosis Date NotedChronic hypertension during , antepartum 8 weeks gestation of 01/29/2023nemia of mother in , antepartum 01/22/2023Low-lying placenta without hemorrhage 12/19/2022hronic hypertension in 10/23/2022High-risk in third trimester 08/29/2022enital herpes complicating 08/29/2022Nausea and vomiting during prior to 22 weeks gestation 08/29/2022Obesity in 08/29/2022Morbid obesity with body mass index of 50 or higher 02/23/2022perations: No past surgical history on file.Past Medical History:Diagnosis DateAnemia of mother in , antepartum 01/22/2023sthmaChronic hypertension during , antepartum 03/03/2023URRENT HEALTH STATUSMedications:Current Facility-Administered MedicationsMedication Dose Route Frequency Last Rate Last Admincarboprost (HEMABATE) injection 250 mcg 250 mcg Intramuscular X1RMYEB5H-NE IV infusion 1,000 mL 1,000 mL IV Infusion TITRATElactated ringers IV infusion 500 mL 500 mL IV Infusion PRN - SEE INSTRUCTIONS 125 mL/hr at 03/03/23 0654 Rate Verify at 03/03/23 0654lidocaine 1% (PF) (XYLOCAINE) injection 0.3 mL 0.3 mL Infiltration PRN - SEE INSTRUCTIONSmethylergonovine (METHERGINE) injection 0.2 mg 0.2 mg Intramuscular K6FLGYyjMNAFSRymD (CYTOTEC) tablet 200 mcg 200 mcg Rectal PRNoxytocin (PITOCIN) 30 units in NS 500 mL IV infusion 600 mL/hr IV Infusion PRNterbutaline (BRETHINE) injection 0.25 mg 0.25 mg Subcutaneous PRNtranexamic acid (CYKLOKAPRON) 1,000 mg in NaCl 0.9% (NS) 250 mL piggyback 1,000 mg IV Piggyback PRNAllergies and drug reactions: Patient has no known allergies.HOME MEDICATIONSMedications Prior to AdmissionMedication Sig Dispense Refill Last Dosealbuterol (PROAIR HFA) 90 mcg/actuation inhaler Inhale 2 Puffs every 4 (four) hours as needed for Wheezing or Shortness of Breath. 1 Each 1 03/02/2023cyclovir 400 mg tablet Take 1 tablet by mouth in the morning and 1 tablet at noon and 1 tablet in the evening. Do all this for 30 days. 90 tablet 0 03/02/2023nystatin 100,000 unit/gram powder Apply to area(s) 2 (two) times daily. 15 g 0 Not Takingferrous sulfate (IRON, FERROUS SULFATE,) 325 mg (65 mg iron) tablet Take 1 tablet by mouth in the morning and 1 tablet in the evening. 60 tablet 1 03/02/2023metoclopramide HCl 10 mg tablet Take 1 tablet by mouth every 6 (six) hours as needed for Nausea and Vomiting (N/V). 30 tablet 1 Not Takingmetoclopramide HCl 10 mg tablet Take 1 tablet by mouth every 6 (six) hours as needed for Nausea and Vomiting (N/V). 30 tablet 1 Not TakingPNV no.95/ferrous fum/folic ac ( ORAL) Take by mouth. 03/02/2023SOCIAL HISTORYTobacco History:Social HistoryTobacco UseSmoking Status NeverPassive exposure: NeverSmokeless Tobacco NeverDrug History:Social HistorySubstance and Sexual ActivityDrug Use Not CurrentlyTypes: MarijuanaComment: quit when found of was Alcohol History:Social HistorySubstance and Sexual ActivityAlcohol Use NeverFAMILY HISTORYFamily HistoryProblem Relation Age of OnsetNo Significant Medical Problems MotherNo Significant Medical Problems FatherREVIEW OF SYSTEMSGeneral: negativeConstitutional: negativeEyes: negativeENT/Mouth: negativeCardiovascular: negativeRespiratory: negativeGastrointestinal:negativeGenitouri nary: see HPIMusculoskeletal: negativeSkin/breast: negativeNeurological: negativePsychiatric: negativeEndocrine: negativeHemat/Lymph: negativeAllergic/Immuno:noneVITAL SIGNSBP: (110-137)/(66-95)Temp: [36.3 ?C (97.4 ?F)-36.4 ?C (97.6 ?F)]Temp source: Oral (03/03 715)Pulse: [89-109]Resp: [18-20]SpO2: [98 %-99 %]Height: [160 cm (5' 2.99")]Weight: [142.9 kg (315 lb)-143.2 kg (315 lb 9.6 oz)]BMI (calculated): [0-55.81]PHYSICAL EXAMINATIONSGen: alert and oriented, well appearing, no distressCV: RRR, normal S1/S2, no m/r/gResp: normal work of breathing, lungs CTABAbd: gravid, soft, NTTPExt: no calf tenderness or edemaGU: SVE fingertip, right labial lesion noted (crusted over herpetic lesion)REVIEW OF LABORATORY, PATHOLOGY, AND RADIOLOGY DATALab results:Type & Screen HIV Hep B Syphilis ChlamydiaABO & RHDate Value Ref Range Gkgbls3103/03/2023 A Negative FinalNo results found for: "HIVMULTIPLEX" No components found for: "HBSHBSAG" Syphilis IgG/IgMDate Value Ref Range Qjhkpq7701/22/2023 Non-reactive Non-reactive FinalC. trachomatis Nucleic AcidDate Value Ref Range Ksvbnb9602/10/2023 Negative Negative FinalIATDate Value Ref Range Fqyevr5703/03/2023 Negative FinalVaricella Rubella Glucose Group B Strep CBCVZV IgG antibodyDate Value Ref Range Kyjskk8809/25/2022 Positive Negative FinalRubella screen IgGDate Value Ref Range Sgorhk3209/25/2022 Positive Negative FinalGLUC 1 HRDate Value Ref Range Ntflqw0601/22/2023 131 120 - 170 mg/dL FinalNo results found for: "CGBS" HGBDate Value Ref Range Akhfpf0303/02/2023 10.3 (L) 11.6 - 15.0 g/dL FinalHCTDate Value Ref Range Qxxfik8403/02/2023 32.0 (L) 35.7 - 45.2 % FinalPLTDate Value Ref Range Multzr9703/02/2023 240 166 - 358 10*3/?L FinalActive Hospital ProblemsDiagnosis Date NotedChronic hypertension during , antepartum 8 weeks gestation of 01/29/2023nemia of mother in , antepartum 01/22/2023hronic hypertension in 10/23/2022High-risk in third trimester 08/29/2022enital herpes complicating 08/29/2022Morbid obesity with body mass index of 50 or higher 2Resolved Hospital ProblemsNo resolved problems to display.Present on Admission:38 weeks gestation of pregnancyChronic hypertension in pregnancyHigh-risk in third trimesterAnemia of mother in , antepartumMorbid obesity with body mass index of 50 or higherGenital herpes complicating pregnancyChronic hypertension during , antepartumPlacenta Accreta ScreeningPrior ? : NoPrior Uterine Surgery?: NoPlacenta low lying/previa in current ? : NoScreening outcome:A positive screening outcome indicates a history of prior delivery or prior uterine surgery, AND the presence of either a placenta low lying/previa or ultrasound suspicion of PASD in the current .Negative screening.ASSESSMENT AND PLANJada Danita Yi is a 17 year old at 38w0d who presents for a primary CD due to active genital herpes lesions.- Admit for primary CD- CHTN: BP normal currently- Body mass index is 55.81 kg/m?.- Asthma: States that she was diagnosed with asthma around 2020; saw Pulmonology, appreciate recs- History of : due to HSV-2- PVT of Dr. Latif, please see OB Summary [place] [address]-0Xwdqxdu and physical vezuQG1166-65-28I75:58:56History and physical noteTXT1.2.840.974043.1.13.104.2.7.2.85033 9|[id number] for patient xjnq89603-2Wjwuind and physical noteLNNARRATIVEFormatted C-CDA narrative text[address] GfhrIpqtxujdbSugtfsuwtOEZU4315088095TIQEDZ SEDEJHEBRSZLGABV9003-23-85Z41:58:561.2.840 .006096.1.72.3.15|1.2.840.571775.1.13.104. 2.7.2.727879_[id number] [facility] Notes Date/Time Note Provider Source 2023-03-04 18:45:31 qN7fbXdHQHrSD9RXPnOx FG1CO+rjcfSuOl JC5Qlz0Ee5ru5qXEoG0603OkRro7om9474 -12-20T18:45:31 Problem: Intrapartum process (including labor pain)Goal: Absence of or reduction of complications of laborOutcome: ResolvedGoal: Able to cope with painOutcome: ResolvedGoal: Adequate to move to next level of careOutcome: ResolvedGoal: Reduction in pain sensationOutcome: ResolvedProblem: Intrapartum process (including labor pain)Goal: Absence of or reduction of complications of laborOutcome: ResolvedGoal: Able to cope with painOutcome: ResolvedGoal: Adequate to move to next level of careOutcome: ResolvedGoal: Reduction in pain sensationOutcome: Adequate for dischargeProblem: Bleeding, Risk ofGoal: Absence of impaired coagulation signs and symptomsOutcome: Adequate for dischargeGoal: Absence of active bleedingOutcome: Adequate for dischargeProblem: Infection RiskGoal: Absence of infectionOutcome: Adequate for dischargeProblem: Complications of preeclampsia/eclampsia (risk or actual)Goal: Absence of signs and symptoms of preeclampsiaOutcome: Adequate for discharge 29182-6Iqvl of care fjsxGO5029-49-05W30:45:39Plan of care noteTXT1.2.840.057851.1.13.104.2.7 .2.749224|[id number] for patient zdqz73308-1IphxOWSBMVEKWFSJvlgonmi d C-CDA narrative text[address] Kb[id number] 62MIZKRBWSUWANYOLKUIOLFM2270-06-62 T18:45:391.2.840.517132.1.72.3.15| 1.2.840.201275.1.13.104.2.7.2.7278 [id number] [facility] 2023-03-03 20:22:27 Dh0UAtr+Czpaapr1jlzF W825HlMt2tJ/x3 6QefUaWjMSYzsFpErRs23PT5Wq3/ny94652022T20:22:27 Problem: Bleeding, Risk ofGoal: Absence of impaired coagulation signs and ucprjrql57/19/20232023 by Chrissie Chong RNOutcome: Progressing as vktfufah65/19/20232022 by Chrissie Chong, RNOutcome: Progressing as hininvko55/19/20232021 by Chrissie Chong, RNOutcome: Progressing as expectedGoal: Absence of active mxgbqacd75/19/20232023 by Chrissie Chong, RNOutcome: Progressing as pnevosse81/19/20232022 by Chrissie Chong, RNOutcome: Progressing as vjqygsyj63/19/20232021 by Chrissie Chong, RNOutcome: Progressing as expectedProblem: Infection RiskGoal: Absence of wnbjzigtg61/19/20232023 by Chrissie Chong RNOutcome: Progressing as ngchsbka63/19/20232022 by Chrissie Chong RNOutcome: Progressing as expectedProblem: Complications of preeclampsia/eclampsia (risk or actual)Goal: Absence of signs and symptoms of preeclampsiaOutcome: Progressing as expected 25415-7Ycap of care etzpWX1583-18-73U73:25:14Plan of care noteTXT1.2.840.302209.1.13.104.2.7 .2.802041|[id number] for patient ecdw05841-7AvkvFIQOLOLOPPRJpjpfizr d C-CDA narrative [id number] M Martinez RNUT[address] VqaeE[id number] 59YRVXIWMVNQSNXUZQADHCUB8059-71-24 T20:25:141.2.840.299095.1.72.3.15| 1.2.840.987231.1.13.104.2.7.2.7278 79_[id number] Chrissie Chong RN [facility] 2023-03-03 15:56:32 9dy3qL2ctbCXzrb5GsWb m2x6SNoesu2aIB ymOx7s52N4/6w5QKHJBC+Fuht5tx9c4737 -12-19T15:56:32 This note was copied from a baby's chart. EvaluationSituationInitial visitBackground Baby Girl is 5 hours old, born weighing 2830g. ,Gestational Age: 38w0d at birthINFANT FEEDING STATUSExclusively breastfeedingFormula supplementation via botlleMATERNAL STATUSBreastfeedingHand expressingAssessment, Recommendations, EducationMom is having difficulty due nausea and vomiting. I was asked to help mom by latching and holding baby to the breast as she lays back. Mom's nausea and vomiting is worse when sitting up. I assisted mom with positioning and asymmetrical latch technique in the supine position. After several attempt would not wake to feed.I placed infant skin to skin for 30 minutes. I returned to help wake for . continues to remain sleepy. Mom states she fed formula about an hour before I came to help her initially. I explained to mom that may not be waking up because infant is not hungry. Infant was placed back skin to skin.1545- I returned to assist mom with . Infant continues to be sleepy and mom nausea and vomiting occurred again. Mom states she is not feeling well wants to rest. I encouraged mom to request help when she feel she is ready to try and gain. Mom verbalized understanding.Mom instructed on how to contact Sawmill Worker for assistance with feedings or to answer questions while in the hospital. Mom verbalized understanding. Assessment (most recent) Assessment - 03/03/23 1545General InformationVisit InitialMom's age (years) 17 yearsGestational age 38 weeksGravida 2Parity 2Living Children 1Feeding plan Breast and FormulaBreastfeed previously YesDuration 10 daysUsed pump previously YesDuration (weeks) 1 weeksBreastfeeding plans As long as possibleBreast Pump HasBreast Pump ElectricDelivery method C-sectionReason for maternal HSVInfant Oral AssessmentOral assessment New assessmentDate of 03/03/23Time of 0856Infant location Mother Baby UnitChin Recessed chinPalate assessment NormalTongue assessment ShortRestricted tongue motion observed Able to cup fingerUpper lip assessment Can't flangeInfant head assessment Asymmetrical faciesIs this a multiple ? NoBreast AssessmentBreast Assessment InitialSymmetry SymmetricalSize L (D-DD)Shape Pendulous;TriangularNipple & Areola AssessmentLeft Areola PliableRight Areola PliableLeft Nipple Colostrum visible;Intact;EvertedRight Nipple Colostrum visible;Intact;EvertedLiterature ResourcesResources Understanding Mother and Baby CareEducation Infant hunger cues;On-demand feeds at least 8 or more over 24 hours;Diaper counts/color;Benefits of breastmilk;Hand expression;Delay of pacifier/artificial nipples up to 4 weeks;Benefits of skin to skin contact;Waking techniques;Signs of an effective latch;Infant stomach size;Calming techniques;2nd day/growth spurt cluster feeds;Position changes;Breaking seal;Engorgement signs and treatment;Risks of mastitis and signs, seek medical attention immediatelyHandouts given EnglishLactation Railroad Construction Director ObservationBreastfeeding Assist with latchPosition right side Football;Too sleepy to latchPosition left side Cross cradle;Too sleepy to latchInterventions Placed skin to skin;Breast massage;Taught hand expressionMother demonstrated teach back of Breast massage and hand expression;Positioning and latching at breastFollow up Mom will call staff;Follow up in hospitalRecommended Feeding PlanRecommended feeding plan On-demand , 8-12 times in 24 hours not to exceed 6 hours between feeds;Offer both breasts prior to formula supplementation;Frequent qddu-ed-xnpa time with parents;Pump/hand express minimum 8 times in 24 hours including nights. Pump for 15-25 min.OTHER$ SERVICES SIVA Roland, RN, IBCLC 21802-1Ofcpaqappy UvvuGJ1009-70-67J58:08:16Obstetric s NoteTXT1.2.840.088750.1.13.104.2.7 .2.983373|[id number] for patient ngci85952-5DusmMROMSFWJBWFFlkccyjl d C-CDA narrative [id number] K Randolph RN[address][id number] 50CFRVSEUQYBEYLLPVVNPHFC8320-05-68 T16:08:161.2.840.272629.1.72.3.15| 1.2.840.473438.1.13.104.2.7.2.7278 79_[id number] Valeria Rose RN [facility] 2023-03-03 15:54:00 ZuTuNL8Mrc1S7RgOVQLj hhVc4bJvCG/56k oMw07cAQcNXkd7iAzltioEX/sd3vkI05762022T15:54:00 Delivery Date: 03/03/2023 Delivery Time: 8:56 AMDELIVERY BY SECTIONDate of Service: : 03/03/2023 at 8:56 AMAdmitted for: primary CD due to active maternal HSV and HTN at 38 wks, Primary Lower uterine tranverse section with no extension, no BTL, Pfannenstiel, Closed with suture, EBL 300 cc, No complications, Findings: NoneDelivery SummaryNewborn Sex: femaleNewborn Weight: 2830 g1 Minute 5 Minute 10 MinuteApgar Totals: 8 9Primary Indication:Carmen Yi is a 17 year old female @ 38w0d with CHTN and active maternal HSV lesions.The patient was taken to the operating room for a primary sectionProcedures:Primary Lower uterine tranverse section with no extensionSpecimens Removed:PlacentaSurgeon:Martha Latif, MDReport:Prophylactic antibiotic, Ancef was given before patient was taken to OR. After arrival to the operating room patient was placed in the supine position with left lateral tilt after administration of spinal anesthesia.LaparotomyA pfannenstiel incision was made through the anterior abdominal wall with #10 scalpel. The incision was extended sharply with the #10 scalpel through the subcutaneous tissue to the level of fascia. The fascia was entered sharply with a #10 scalpel (Pfannenstiel) in the midline and extended in semi-elliptical fashion with Sultana scissor. The underlying muscles were dissected off the overlying fascia by grasping the superior aspect of fascia with two bailee clamps and blunt dissection was used along the midline. The fascia was further from rectus muscle with Sultana scissor and/or cautery. In similar fashion, the lower aspect of fascia was also grsaped with two Bailee clamps and both blunt and sharp dissection was used to separate fascia from rectus muscle. The rectus muscles were in the midline bluntly with digits. The peritoneum was then entered bluntly. The peritoneal incision was then extended superiorly and inferiorly under direct visualization with care being taken to avoid bladder and bowel. No adhesions were noted. The peritoneal incision was enlarged bluntly by lateral traction from the surgeon's and janitorial assistant's hand.DeliveryA bladder flap was developed by grasping with Canadian forcep and enter with Metzenbaun scissor. Then sharp and blunt dissection with Metzenbaum scissor and fingers were performed. A low transverse hysterotomy was made then with #10 scalpel and extended laterally and cephalad with fingers in a low transverse fashion with Manu Mendoza technique with care being taken to avoid injury to the fetus. The amniotic (membranes) were then entered with spontaneous rupture of membrane, and the amniotic fluid was noted to be clear . The head was delivered manually without aid of vaginal hand. The head was flexed and delivered through the hysterotomy incision in a non-traumatic fashion with aid of fundal pressure applied by the therapy administrative assistant surgeon . The body was delivered with traction on the head along with fundal pressure.After delivery of body-bulb suction was performed from oropharynx and nostril with removal of clear amniotic fluid. Fetus was delivered in cephalic presentation. With delivery the baby, no extension was noted.Delayed cord clamping was performed for 30-60 seconds.Placenta was delivered spontaneously with steady traction on cord and manual separation of placenta from uterine wall.ClosureUterine cavity was cleaned after placental delivery with lap sponge x 2. The hysterotomy was closed in one layer with stitches using 1-0 Monocryl with continuous locking stitches. Hemostasis was achieved as needed with electrocautery and figure eight suture ligation. The ovaries/tubes/uterine surface were evaluated. They were found to be normal.Rectus muscle was reapproximated with 2-0 Monocryl. Fascia was closed with running stitches using 0 Biosyn . Hemostasis was checked for and found to be adequate. The subcutaneous tissue was irrigated and hemostasis was achieved where needed with electrocautery. Subcutaneous layer was closed with plain gut. The skin was then closed with subcutaneous stitches using 3-0 Vicryl sutures. The incision was cleaned and covered with a compression bandage and the procedure considered to be complete at this time.Intraoperative Complications: NoneEBL: 300Uterotonics: 30 units of Pitocin mixed in 500 cc of LRDdisposition:The patient tolerated the procedure well. She was recovered in the Labor and Delivery Room with routine care in stable condition, with a contracted uterus and normal transvaginal bleeding. The was sent to [facility]. The placenta was not sent to pathology.Martha Latif MD 03/03/2023 4:05 PM 13075-2Coinx and delivery summary xfwmSO6115-13-58F47:06:00Labor and delivery summary noteTXT1.2.840.423852.1.13.104.2.7 .2.906696|[id number] for patient edyt25950-0AkqmTAQYWMZFKMAKzpvspnu d C-CDA narrative textUTALBUQUERQUE INDIAN DENT[facility] - [address] Wright StreetKzjvXwhqzjhhqYnohpqfzqXHJK44404481 71NVBHXZCIHNKROWLUBPSAWK8386-21-42 T16:06:001.2.840.410146.1.72.3.15| 1.2.840.334152.1.13.104.2.7.2.7278 [id number] [facility] 2023-03-03 05:08:31 lPyNhUIsCue7It1+NR/J sREnb5z4ws7u4s ANqV3LqytzbOCeyKg9tTYhRK/ENZlC66382022T05:08:31 Problem: Intrapartum process (including labor pain)Goal: Absence of or reduction of complications of laborOutcome: Progressing as expectedGoal: Able to cope with painOutcome: Progressing as expectedGoal: Adequate to move to next level of careOutcome: Progressing as expectedGoal: Reduction in pain sensationOutcome: Progressing as expectedProblem: Bleeding, Risk ofGoal: Absence of impaired coagulation signs and symptomsOutcome: Progressing as expectedGoal: Absence of active bleedingOutcome: Progressing as expectedProblem: Intrapartum process (including labor pain)Goal: Absence of or reduction of complications of laborOutcome: Progressing as expectedGoal: Able to cope with painOutcome: Progressing as expectedGoal: Adequate to move to next level of careOutcome: Progressing as expectedGoal: Reduction in pain sensationOutcome: Progressing as expected 51872-5Aarh of care hdaqQU5168-47-90F50:09:51Plan of care noteTXT1.2.840.159843.1.13.104.2.7 .2.842671|[id number] for patient rlzw69745-8XelyMPXXDMAESSZPpwrpodk d C-CDA narrative [id number] Beckwith RNUT[address] NotgUgrssmjyfUbvsfvcxwWKPV99503893 33RGNJYOHAIATXDNQSFTDCGL1709-50-55 T05:09:511.2.840.883983.1.72.3.15| 1.2.840.803481.1.13.104.2.7.2.7278 79_[id number] Minerva Beckwith RN [facility] 2022-10-23 13:45:00 IghDxhUxel6Ob8zLhpDY d3JNeUKylagBVl ACcIVoJjOdA8J5v2MzvQq3Rfc45XQf6640 -08-10T13:45:00 Age: 17 year oldGA: 19w2d Asthma -States that she was diagnosed with asthma around 2020-Has been having to use albuterol inhaler every other day- needs refill on albuterol inhaler- Albuterol inhaler Rx. Referral to pulmonology History of -States that her first child at 11 days after delivery due to HSV-2.- patient denies ever having genital outbreaks or symptoms. Patient does have oral herpes.-Discussed will get record and will put patient on suppression starting at 35 to 36 weeks unless clinically indicated otherwise. -HSV II IgG positiveElevated BP without dx of HTN- will continue to monitorpanorama low risk femaleMaternal serum AFP negativeAnatomy scan any scan scheduled for 10/28/22[place] [address]-9Aaoktflh flvvOA9209-82-36L99:20:23Progress noteTXT1.2.840.722580.1.13.104.2.7 .2.873267|[id number] for patient mymz51034-0ZomdVKMCKALYPM[address] FmywUbdstrpozVajiumfsjJRYU16702584 26NKRFQRJYSZJLFXOIFPJFDG7776-60-13 T14:20:231.2.840.430291.1.72.3.15| 1.2.840.661710.1.13.104.2.7.2.7278 79_[id number] [facility] 2022-10-07 13:40:55 t79xyyX822yVwJjaSMfA phhWwJJy71Xjq0 j7HnbQajRdoz6/6zakdM7wiW2wKNvg7277 -07-25T13:40:55 Received Panorama results via fax. Will be scanned/uploaded into pt's chart. Pt advised of sex.ARLINE KIMBALL RN 10/07/2022 1:44 PM 33466-4Mziqvvlwa encounter VacxEU8397-91-49H47:44:36Telephone encounter NoteTXT1.2.840.520735.1.13.104.2.7 .2.330922|[id number] for patient jxms418632215LpkhwvkocArline Kimball RNUT[address] AcplHqpieaomuGdiigvaduUWEH67491039 67WGJBZVPJBXHQOOTKUOUXYO3741-60-53 T13:44:361.2.840.431171.1.72.3.15| 1.2.840.958711.1.13.104.2.7.2.7278 79_[id number] Arline Kimball RN [facility] 2022-10-06 09:15:00 /t7q3cCvbDi1vxoeG5eX kqDCzWD71RSAjS Ff9xSUCA9lGBZJsWUeY7HogiwVD3sm2734 -07-24T09:15:00 Images from the original note were not included.Venipuncture collection performed by clean technique on the left anticubitus. Total of 1 attempts were made. Slight pressure and a bandage/dressing were applied to the site(s). The patient experienced no complications. The following specimens were processed according to instructions and sent to [facility] laboratories per lab order on 10/06/2022: LT BLUE SST 1 RED LAV PPT DK GREEN (LiHep) DK GREEN (SodH) CHAVIS DK BLUE (K2) DK BLUE (S) ACD Blood Culture NIPT/NTD 58814-6Fcuoi BmbcEJ8393-26-60Y95:09:38Nurse NoteTXT1.2.840.270367.1.13.104.2.7 .2.494182|[id number] for patient [address] VgwtKehfachicZpwwxluyqMFJC44836155 06KFEMLMYHHPXRLVJAPNQSHY2947-83-84 T09:09:381.2.840.193691.1.72.3.15| 1.2.840.961316.1.13.104.2.7.2.7278 79_[id number] [facility] 2022-03-26 08:18:00 G06823552821l1B+XNWc nyZpUT8/scRZwb u3J52l33Ai1MOIRUBWpvoMVbbuXVMGd+Oj SWrTDUbW5366-87-37S97:18:743139-95 [address] [address] PATIENT NAME: CARMEN YI ADMIT DATE: 02/28/22ACCOUNT NO: [id number] ROOM NO: [facility] AGE: 16 SEX: F ADMITTING PHYSICIAN: Watson Hull DO ATTENDING PHYSICIAN: Watson Hull DO Provider Query QUERY TEXT: Condition General 360MD Query related questions should be directed to:[facility] Coding Query Helpline Based on your medical judgement kindly further specify the clinical significance of the indicators mentioned below (Significant hyponatremia, Insignificant hyponatremia, or Other more appropriate diagnosis)? The patient's Clinical Indicators include:SODIUM (mEq/L) 132L 132L - LABSLR 1,000 mL 21:50 1 MLS Intravenous Options provided:-- Respond - Create new note now-- Dismiss - Not applicable / Not valid-- Dismiss - Clinically unable to determine / Unknown-- Assign to another provider QUERY RESPONSE: Mild hyponatremia Query created by: Susie Ling on 03/05/2022 11:37 PM QUERY TEXT: Condition General 360MD Query related questions should be directed to:[facility] Coding Query Helpline Based on your clinical judgement, can you please clarify if maternal fever was confirmed, maternal fever not confirmed, or other more appropriate diagnosis? The patient's Clinical Indicators include:fever/chills - OB Admission / H and P 02/28/2022Highest Maternal Temperature: 98.6 - Inpatient Summary 03/03/2022Temp 98.4 - OB Admission / H and P 02/28/2022Temp 98.2 - OB Antepartum Progress Note 03/01/2022enicillin G Pot 3 million units/D5W 50 mL 01:59 1 MLS Intravenous Options provided:-- Respond - Create new note now-- Dismiss - Not applicable / Not valid-- Dismiss - Clinically unable to determine / Unknown-- Assign to another provider QUERY RESPONSE: Maternal fever reported at home, but not confirmed on admission or during hospital stay Query created by: Susie Ling on 03/05/2022 11:41 PM at 0818 PATIENT NAME: CARMEN YI noteF.[id number] for patient vkrwZSJRFPXXQTDNST8877-23-73F23:19 :40 [facility] 2022-03-03 07:31:00 [id number] 9qWPevvMbOMLNA 837wuiM2PCBOVHBKoiGIxVup710lu0XXwj jGUqu8QQ9483-32-69Y80:31:00 [facility])OB Postpart Progr NoteREPORT#:[id number] REPORT STATUS: SignedDATE:03/03/22 TIME: 0731 PATIENT: CARMEN YI UNIT #: [id number]#: [id number] ROOM[address]BED: [address]: 03 AGE: 16 SEX: F ATTEND: KurtisWatson DOADM AUTHOR: Cindi Denney MD * ALL edits or amendments must be made on the electronic/computer document * Subjective SubjectiveAdmission EGA: Weeks: 38 Days: 0EGA at delivery (wks/days): 38 weeksStatus/day: post partumPatient reports: Patient reports: No: complaints. Objective Nursing Documentation ReviewNursing data:Vital SignsDate Temp Pulse Resp B/P B/P Mean Pulse Ox OsX164/-03/03 98.0-98.2 96-142 18-20 98-180/54-95 73.0-120.0 The data set between the solid lines has been imported from nursing documentation. Any exceptions have been noted below under Provider comments. Feeding preference: Post hemorrhage risk score: Medium Risk for Hemorrhage. Provider comments on imported nursing data: [] Physical ExamNeuro: Exam: alert, oriented f7Zotqlos: soft, no abnormal tenderness, no guardingUterus: involution appropriate, non-tenderLochia: normalLacerations: Perineal laceration(s): hymenal tear repaired with 2-0 vicrylLower extremities: Edema: none Diagnosis, Assessment Plan Diagnosis, Assessment PlanAssessment: nml progress, preeclampsiaPlan: routine care, discharge today (if BP stable) at 0733 RPT #:[id number] OF REPORT PRProgress cygb5783-41-89V75:31:00F.AHNW45089 [id number] for patient razdPJJBRPWNUYKIAG2093-04-96R15:33 :39 [facility] 2022-03-02 08:01:00 [id number] ZNvvxpWrYUqz27 ZNkdulpLtsTGBRk1tvisy9vF7YNwIpTzgD oLtLkbw24024-42-80X25:01:00 [facility])Clinical NoteREPORT#:[id number] REPORT STATUS: SignedDATE:03/02/22 TIME: 08 PATIENT: CARMEN YI UNIT #: [id number]#: [id number] [facility] AGE: 16 SEX: F ATTEND: Watson Hull DOADM AUTHOR: Srinivas Condon MD * ALL edits or amendments must be made on the electronic/computer document * Clinical NoteNote:0715 called by RN to evaluate strip. EFM with long decelerations to 80s with recovery in between ctx. pitocin was turned off 3 min ago. CTX decreased from q1-2 min to 3-4 min with continued improvement in strip. cvx was 5 cm at 4 am. Cvx 10/100+2 on exam now with rapid descent. IUPC and FSe in placeI stayed on stand by for delivery until Dr Saldivar's arrival and turned over patient care to her. EFM reassuring at this time, variables and decels improved. Currently only earlydecels with ctx at 0804 RPT #:[id number] OF REPORT CLClinical oacx4299-69-04T58:01:00F.NEHT69156 [id number] for patient qvnbABSCGPOANXDGSK8449-45-64E37:04 :19 [facility] 2022-03-02 08:01:00 [id number] JAV49DPu4nTXp5 h2DzO3ukomLLUMyXRAHg0NP8TYqzRnoD7e weF8BFA43147-36-06Y81:01:00 [facility] Delivery NoteREPORT#:[id number] REPORT STATUS: SignedDATE:03/02/22 TIME: 08 PATIENT: CARMEN YI UNIT #: [id number]#: [id number] [facility] AGE: 16 SEX: F ATTEND: Watson Hull DO AUTHOR: Marcy Saldivar MD * ALL edits or amendments must be made on the electronic/computer document * OB Delivery Nursing Documentation ReviewNursing data:The data set between the solid lines has been imported from nursing documentation. Any exceptions have been noted below under Provider comments. ROM date: 03/01/22 ROM time: 1800Membranes rupture method: SROMAmniotic fluid color: ClearAmniotic fluid amount: Steroids prior to arrival: Antibiotic prophylaxis given: Post hemorrhage risk score: Medium Risk for Hemorrhage. Delivery date A: 03/02/22 Delivery time infant A: 0744Birthweight (gm) A: Weight (lb) A: Weight (oz) A: Gender A: FemaleApgar 1 minute A: 8Apgar 5 minutes infant A: 9Apgar 10 minutes infant A: Cord pH obtained A: Vacuum time A: Vacuum # pulls infant A: Vacuum # popoffs infant A: QBL at delivery: Provider comments on imported nursing data: [] Pre-deliveryGBS status: GBS status: positiveNewborn evaluation at delivery: NRP certified personnelAdmission EGA: Weeks: 38 Days: 0EGA at delivery (wks/days): 38 weeksAdmission indication:preeclampsia without severe features and rupture of membranes Blood Loss/DetailsBlood loss at delivery: no more than expectedEBL at delivery (ml's): 200 Baby A InformationBaby A information Delivery date: 03/02/22 Delivery time: 0744 status: live born Wt of baby: not yet available Gender: female 1 minute: 8 5 minutes: 9 Presentation: vertex Anomalies:noneABG details Baby A Cord blood gases: not collectedNuchal cord Baby A Nuchal cord: no Vaginal Delivery Vaginal DeliveryVaginal delivery: Labor: induced Medications/Devices used: oxytocin Vaginal delivery: spontaneous Amniotic fluid: clear Anesthesia type: epidural anesthesia Episiotomy: none Laceration repair: yes, 2-0 suture Placenta: spontaneous, expressed, intact Post delivery meds used: oxytocin Count: correct Vaginal packing: No Mother's condition: mother stable 's condition: stable in roomLacerations: Perineal laceration(s): hymenal tear repaired with 2-0 vicrylExtraction details OVD performed: noShoulder dystocia present: no at 0804 RPT #:[id number] OF REPORT CLClinical gnai4879-95-63S51:01:00F.UZRG37210 [id number] for patient ngrrWEQLBXRONMZURP2955-56-90D79:04 :39 [facility] 2022-03-02 02:01:00 [id number] ovYdZmQ68fSuU0 o6nzgekZsaS+kCwLT6M0a6VxCYEV3JxT3H 0mcONVND2076-84-03B18:01:00 [facility])Clinical NoteREPORT#:[id number] REPORT STATUS: SignedDATE:03/02/22 TIME: 0201 PATIENT: CARMEN YI UNIT #: [id number]#: [id number] [facility] AGE: 16 SEX: F ATTEND: Watson Hull DOADM AUTHOR: Marcy Saldivar MD * ALL edits or amendments must be made on the electronic/computer document * Clinical NoteNote:Patient transferred [facility] labor. Patient had spontaneous rupture of membranes in [facility]. Cervix 4/60/-3, started augmentation with pitocinFHR baseline 130s, mod variability with variable and early decels, will continueto monitor TOCO shows regular contractionsContinue augmentation with pitocinAnticipate , c/s for MFI at 0207 RPT #:[id number] OF REPORT CLClinical cpcg5889-83-11Q63:01:00F.AJTG78985 [id number] for patient uhcnZRZJVGBBJILYUW8819-59-17O73:17 :55 [facility] 2022-03-01 23:45:00 [id number] 8Qbq01dPns/n/2 rXcPMjOcwVpKiv3mGF749XxINACScRITVt rIUizdcz0862-52-18Z53:45:747976-72 [address] [place] [id number] PATIENT NAME: CARMEN YI ADMIT DATE: 02/28/22ACCOUNT NO: [id number] ROOM NO: [facility] AGE: 16 SEX: F ADMITTING PHYSICIAN: Watson Hull DO ATTENDING PHYSICIAN: Watson Hull DO Order:[id number] Reason : MATERBAL TACHYCARDIA Test Date/Time Stamp:ThuMar 01 2022 23:45:36Blood Pressure : / mmHGVent. Rate : 114 BPM Atrial Rate : 114 BPM P-R Int : 128 ms QRS Dur : 074 ms QT Int : 330 ms P-R-T Axes : 028 089 026 degrees QTc Int : 454 ms Sinus tachycardiaOtherwise normal ECGNo previous ECGs availableConfirmed by RANDY CH ([id number]) on 03/03/2022 9:33:54 AM Referred By: Watson Hull Confirmed by:RANDY CH at 0933 PATIENT NAME: CARMEN YI [id number] for patient dftpJXVATZEHWSMRYD2998-84-27O49:34 :13 [facility] 2022-03-01 10:23:00 [id number] fAAIZzC0GfK/xn rkhJ1W+QzoxcqLaanzBh09hKG+ahKsgqq0 VhdLg7d79617-66-14E50:23:00 [facility] ([facility])OB Antepartum Prog NoteREPORT#:[id number] REPORT STATUS: SignedDATE:03/01/22 TIME: 1023 PATIENT: CARMEN YI UNIT #: [id number]#: [id number] [facility]-AD[facility]: 03 AGE: 16 SEX: F ATTEND: Watson Hull DOADM AUTHOR: Marcy Saldivar MD * ALL edits or amendments must be made on the electronic/computer document * Subjective SubjectiveAdmission EGA: Weeks: 38 Days: 0Current EGA: Current EGA(wks): 38 Current EGA(days): 1Patient reports: Patient reports: No: complaints. Nursing reports: Nursing reports: No: complaints. Review of SystemsAll systems rev neg: except as marked Objective Nursing Documentation ReviewNursing data:The data set between the solid lines has been imported from nursing documentation. Any exceptions have been noted below under Provider comments. ROM date: ROM time: Labor onset date: Labor onset time: Provider comments on imported nursing data: [] VS:Last Documented: Result Date Time B/P Mean 83.0 03/01 0802 Pulse Ox 98 03/01 0802 B/P 123/59 03/01 0802 Temp 98.2 03/01 0802 Pulse 117 03/01 0802 Resp 20 02/28 1432 Vital SignsDate Temp Pulse Resp B/P B/P Mean Pulse Ox ZpK392/-03/01 98.2-98.4 114-136 20 119-176/59-11 83.0-139.0 98 0 PATIENT WEIGHT: Weight (lb): Weight (oz): Weight (kg): 146.520241 Medications:Active Meds + DC'd Last 24 HrsLactated Ringer's (LACTATED RINGERS) 1,000 ML BOLUS ONCE ONE IV (DC) Hydralazine HCl (hydrALAZINE HCL 20MG) 10 MG ASDIR PRN IV Labetalol HCl (NORMODYNE 100 MG/20 ML VIAL) 20 MG ONCE PRN IV Labetalol HCl (NORMODYNE 100 MG/20 ML VIAL) 40 MG ASDIR PRN IV Labetalol HCl (NORMODYNE 100 MG/20 ML VIAL) 80 MG ASDIR PRN IV Acetaminophen (TYLENOL EXTRA STRENGTH) 1,000 MG PREOP PRN PO Azithromycin (ZITHROMAX IV 500MG) 500 MG PREOP PRN IV Sodium Chloride (SODIUM CHLORIDE 0.9% - 250 ML) 250 MLCarboprost Tromethamine (HEMABATE 250 MCG/ML AMP) 250 MCG Q15M PRN PRN IM Cefazolin/Sodium Chloride (CEFAZOLIN 3 GM/NS 100ML) 100 ML PREOP PRN IV Dextrose/Lactated Ringer's (DEXTROSE 5% IN LACTATED RINGERS 1000 ML) 1,000 ML ASDIR IV Lactated Ringer's (LACTATED RINGERS) 1,000 ML ASDIR PRN I-UTERINE Lactated Ringer's (LACTATED RINGERS) 1,000 ML ONCE ONE IV (DC) Lidocaine HCl (LIDOCAINE HCL 1% INJ 5 ML PF VIAL) DIRECTED ONCE PRN IV Loperamide HCl (LOPERAMIDE HCL 2 MG CAP) 4 MG ASDIR PRN PO Methylergonovine Maleate (METHERGINE 0.2 MG/ML 1 ML AMP) 0.2 MG ASDIR PRN IM Misoprostol (CYTOTEC 200MCG TAB) 1,000 MCG ASDIR PRN RECTAL Misoprostol (CYTOTEC 25 MCG TABLET) 50 MCG Q4H PRN PRN PO Omeprazole/Sodium Bicarbonate (ZEGERID 20 MG CAPSULE) 2 CAP PREOP PRN PO Ondansetron HCl (ZOFRAN 2 MG/ML 4 MG SYR) 4 MG Q6H PRN PRN IV Ondansetron HCl (ZOFRAN 2 MG/ML 4 MG SYR) 4 MG PREOP PRN IV Oxytocin (Pitocin 10 units/1 mL Inj) 10 UNITS ONCE PRN IM Oxytocin/Sodium Chloride (Oxytocin 15 units/NS 250 mL) 250 ML ASDIR PRN IV Pharmacy Profile Note (EPIDURAL TRAY) 1 EA ASDIR MISC Promethazine HCl (PROMETHAZINE HCL 25 MG) 25 MG Q4H PRN PRN IM Scopolamine (TRANSDERM-SCOP PATCH) 1 MG PREOP PRN TRANSDERM Terbutaline Sulfate (TERBUTALINE 1 MG/ML 1 ML AMP) 0.25 MG ONCE PRN SUBQ Tranexamic Acid (Tranexamic Acid) 1,000 MG ASDIR PRN IV Sodium Chloride (SODIUM CHLORIDE 0.9% 100 mL MBP) 100 MLLoperamide HCl (LOPERAMIDE HCL 2 MG CAP) 2 MG Q4H PRN PRN PO Membranes: IntactUterine activity: Monitor: toco Frequency (description): noneHEENT: normocephalic w/o injuryNeuro: Exam: alert, oriented e1Ngslwsv: gravidLower extremities: Edema: noneBaby A: Baby A FHR category: category 1Findings/data:Laboratory Tests: 02/28 02/28 1449 1355 Chemistry Sodium (135 - 145 mEq/L) 132 L Potassium (3.5 - 5.0 mEq/L) 4.3 Chloride (100 - 115 mEq/L) 99 L Carbon Dioxide (22 - 31 mEq/L) 24 Anion Gap (10 - 20) 13.80 BUN (7 - 18 mg/dL) 7 Creatinine (0.5 - 1.0 mg/dL) 0.8 Glomerular Filtr Rate (>60 ml/min) 109 Glucose (65 - 110 mg/dL) 69 Calcium (8.4 - 10.2 mg/dL) 9.2 Total Bilirubin (0.2 - 1.0 mg/dL) 0.3 AST (15 - 37 units/L) 21 ALT (12 - 78 units/L) 19 Total Alk Phosphatase (46 - 116 units/L) 192 H Total Protein (6.3 - 8.2 gm/dL) 6.9 Albumin (3.4 - 4.8 gm/dL) 2.8 L Hematology WBC (6.5 - 12.3 K/mm3) 9.7 RBC (3.51 - 4.69 M/mm3) 4.13 Hgb (10.1 - 13.8 g/dL) 11.4 Hct (32.5 - 41.8 %) 35.1 MCV (84.6 - 96.6 fL) 85.0 MCH (27.3 - 33.9 pg) 27.6 MCHC (32.0 - 34.2 gm/dL) 32.5 RDW (12.2 - 16.3 %) 14.9 Plt Count (134 - 363 K/mm3) 214 MPV (9.2 - 12.7 fL) 11.2 Neut % (Auto) (57.9 - 77.3 %) 84.1 H Lymph % (Auto) (14.5 - 29.7 %) 9.3 L [place] % (Auto) (3.6 - 10.2 %) 4.3 Eos % (Auto) (0.0 - 3.0 %) 0.1 Baso % (Auto) (0.1 - 0.9 %) 0.3 Neut # (Auto) (K/mm3) 8.1 Lymph # (Auto) (K/mm3) 0.9 [place] # (Auto) (K/mm3) 0.4 Eos # (Auto) (K/mm3) 0.01 Baso # (Auto) (K/mm3) 0.0 Serology Treponema pallidum Ab (NONREACTIVE) NONREACTIVE Hep Bs Antigen (NONREACTIVE) NONREACTIVE Hepatitis C Antibody (NONREACTIVE) NONREACTIVE Hep C Ab Signal/Cutoff (<0.80) 0.13 HIV 1 2 Antibody (NONREACTIVE) NONREACTIVE SARS-CoV-2 Ag (Rapid) (NEGATIVE) NEGATIVE Microbiology: Date/Time Procedure - Status Source Growth 02/28 1449 Influenza Virus Type B Antigen - COMP NASOPHARG 02/28 1449 Influenza Virus Type A Antigen - COMP NASOPHARG Diagnosis, Assessment Plan Diagnosis, Assessment PlanFree text A P:16 yo at 38w1d with c/b preeclampsia without severe features concerning for occasional severe range blood pressures on admission-has not had two severe range BPs more than 4hrs apart, in [facility]U for monitoring until induction room available given suspicion for preeclampsia with severe features-GBS pos, will start PCN prophylaxis when in labor -awaiting induction in [facility] when staffing available at 1025 RPT #:[id number] OF REPORT PRProgress luxp2396-94-28O94:23:00F.QVZQ27821 [id number] for patient kwjjFPGCPGPJQISGRN9010-10-59A25:25 :57 [facility] 2022-02-28 20:47:00 [id number] +wo/f4o8AzxOPR mEl3QGcD44QX9i8qg5hWCbo9FzIJyKMiZF /fQ5/uoQ0748-32-74M39:47:00 [facility]OB Admission / H PREPORT#:[id number] REPORT STATUS: SignedDATE:02/28/22 TIME: 2046 PATIENT: CARMEN YI UNIT #: [id number]#: [id number] ROOM/BED: F.[facility]-ADOB: [birth year] AGE: 16 SEX: F ATTEND: Watson Hull DOADM AUTHOR: Marcy Saldivar MD * ALL edits or amendments must be made on the electronic/computer document * OB History Nursing Documentation ReviewNursing data:The data set between the solid lines has been imported from nursing documentation. Any exceptions have been noted below under Provider comments. Current dataSteroids prior to arrival: ROM date: ROM time: EDC date: 03/05/22Gestational age (labor triage): Post hemorrhage risk score: Medium Risk for Hemorrhage. Prior historyGravida: 1 Para: 0 Term: : Abortions spontaneous: Abortions induced: Living children: Ectopic: Stillbirths: Live births: deaths: Number of previous C/S: Reported maternal labs/dataBlood type: Rh type: Rubella: Hepatitis B: HIV exposure test: NegativeVDRL: Group B beta strep: Rho(D) immune globulin this preg: Monitor mode - UA: Feeding preference: Provider comments on imported nursing data: [] Chief complaint: elevated blood pressure, fever/chills at homeHPI:16 yo at 38w0d with c/b preeclampsia without severe features withsevere elevated BPs and fever/chills at home- also c/b gonorrhea in early and GBS positivePregnancy history: : 1Current : Best EDC: 03/14/22 Admission EGA (weeks) 38 Admission EGA (days) 0Conditions of : preeclampsia without severe featuresLabs: Blood type: A Rh: negative Rubella: immune Hepatitis B: negative HIV: negative Syphilis: currently negative GBS: positive Date Rhogam administered: not given Past HistoryAdditional Medical History:deniesAdditional Surgical History:deniesAdditional Family HistorydeniesAlcohol Use Denies EtOH useDrug Use Denies recreational drugsSmoking status for patients 13 years old or older: Never SmokerMedications:Home Medications:PNV WITH FE FUMARATE/FA () 1 TAB PO DAILY Allergies:Coded Allergies:No Known Allergies (02/28/22) Review of SystemsAll systems rev neg: except as marked Objective GeneralVS:Last Documented: Result Date Time B/P Mean 112.0 02/28 1911 B/P 137/93 02/28 191 Pulse 130 02/28 191 Temp 98.4 02/28 1432 Resp 20 02/28 1432 Vital Signs Date Temp Pulse Resp B/P B/P Mean Pulse Ox FiO2 02/28 98.4 127-136 20 127-176/61-110 94.0-139.0 PATIENT WEIGHT: Weight (lb): Weight (oz): Weight (kg): 146.644425 Physical ExamHEENT: normocephalic w/o injuryNeuro: Exam: alert, oriented k3Epdidhk: gravidUterine activity: Monitor: toco Frequency (description): nonePelvic exam: Pelvis clinically adequate: yes Vulvar lesions: none Vagina: normalMembranes: Membranes: IntactLower extremities: Edema: noneBaby A: Baby A FHR category: category 1 ResultsFindings/Data:Laboratory Tests: 02/28 02/28 1449 1355 Chemistry Sodium (135 - 145 mEq/L) 132 L Potassium (3.5 - 5.0 mEq/L) 4.3 Chloride (100 - 115 mEq/L) 99 L Carbon Dioxide (22 - 31 mEq/L) 24 Anion Gap (10 - 20) 13.80 BUN (7 - 18 mg/dL) 7 Creatinine (0.5 - 1.0 mg/dL) 0.8 Glomerular Filtr Rate (>60 ml/min) 109 Glucose (65 - 110 mg/dL) 69 Calcium (8.4 - 10.2 mg/dL) 9.2 Total Bilirubin (0.2 - 1.0 mg/dL) 0.3 AST (15 - 37 units/L) 21 ALT (12 - 78 units/L) 19 Total Alk Phosphatase (46 - 116 units/L) 192 H Total Protein (6.3 - 8.2 gm/dL) 6.9 Albumin (3.4 - 4.8 gm/dL) 2.8 L Hematology WBC (6.5 - 12.3 K/mm3) 9.7 RBC (3.51 - 4.69 M/mm3) 4.13 Hgb (10.1 - 13.8 g/dL) 11.4 Hct (32.5 - 41.8 %) 35.1 MCV (84.6 - 96.6 fL) 85.0 MCH (27.3 - 33.9 pg) 27.6 MCHC (32.0 - 34.2 gm/dL) 32.5 RDW (12.2 - 16.3 %) 14.9 Plt Count (134 - 363 K/mm3) 214 MPV (9.2 - 12.7 fL) 11.2 Neut % (Auto) (57.9 - 77.3 %) 84.1 H Lymph % (Auto) (14.5 - 29.7 %) 9.3 L [place] % (Auto) (3.6 - 10.2 %) 4.3 Eos % (Auto) (0.0 - 3.0 %) 0.1 Baso % (Auto) (0.1 - 0.9 %) 0.3 Neut # (Auto) (K/mm3) 8.1 Lymph # (Auto) (K/mm3) 0.9 [place] # (Auto) (K/mm3) 0.4 Eos # (Auto) (K/mm3) 0.01 Baso # (Auto) (K/mm3) 0.0 Serology Treponema pallidum Ab (NONREACTIVE) NONREACTIVE Hep Bs Antigen (NONREACTIVE) NONREACTIVE Hepatitis C Antibody (NONREACTIVE) NONREACTIVE Hep C Ab Signal/Cutoff (<0.80) 0.13 HIV 1 2 Antibody (NONREACTIVE) NONREACTIVE SARS-CoV-2 Ag (Rapid) (NEGATIVE) NEGATIVE Microbiology: Date/Time Procedure - Status Source Growth 02/28 144 Influenza Virus Type B Antigen - COMP NASOPHARG 02/28 144 Influenza Virus Type A Antigen - COMP NASOPHARG Results: labs reviewed, vital signs reviewed Diagnosis, Assessment Plan Diagnosis, Assessment PlanFree Text A P:16 yo at 38w0d with c/b preeclampsia without severe features concerning for occasional severe range blood pressures and reported fever/chillsat home-afebrile on admission, COVID/Influenza negative-has not had two severe range BPs more than 4hrs apart, but will admit to [facility]U for monitoring until induction room available given suspicion for preeclampsia with severe features-GBS pos, will start PCN prophylaxis when in labor -awaiting induction in [facility] when staffing available at 2057 RPT #:[id number] OF REPORT HPHistory and physical iajdlltqmpc6821-85-28G13:47:00F.PD [id number] for patient tccoPYGHRYICOENWUN5511-37-45Z90:57 :26 [facility]
[2023-04-12 10:47] LABS: SARS-CoV-2 Antigen Rapid Res Positive (Negative)
--- NOTE | 2023-04-12 10:52 | EDPHYS ---
Physician Documentation [facility] Name: Bella Foley Age: 17 yrs Sex: Female : 2005 Arrival Date: 04/12/2023 Time: 10:03 Bed 20 Private MD: ED Physician Harjinder Anderson HPI: 04/12 10:09 This 17 yrs old Female presents to ER via Unassigned with complaints of Flu Symptoms. sb4 10:09 malaise, sore throat, diarrhea x 6 hours. was exposed to covid 2 days ago. no fever, sb4 chest pain, sob. denies any chronic medical problems/daily medications. has not taken any medicine for the symptoms. 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 - Social history:: Smoking status: Patient denies any tobacco usage or history of. ROS: 10:09 Cardiovascular: Negative for chest pain, palpitations, and edema, sb4 10:09 Constitutional: Positive for fatigue, malaise, 10:09 ENT: Positive for ear pain, sore throat, 10:09 Abdomen/GI: Positive for diarrhea, 10:09 All other systems are negative, Exam: 10:09 Constitutional: This is a well developed, well nourished patient who is awake, alert, sb4 and in no acute distress. Head/Face: Normocephalic, atraumatic. Eyes: Extra-ocular motions intact. Periorbital areas with no swelling, redness, or edema. ENT: Mucous membranes moist. Cardiovascular: Regular rate and rhythm with a normal S1 and S2. Respiratory: Lungs have equal breath sounds bilaterally, clear to auscultation and percussion. No rales, rhonchi or wheezes noted. No increased work of breathing, no retractions or nasal flaring. Abdomen/GI: Soft, non-tender, no distension. Skin: Warm, dry with normal turgor. Normal color with no rashes, no lesions, and no evidence of cellulitis. MS/ Extremity: Pulses equal, no cyanosis. Neurovascular intact. Full, normal range of motion. Neuro: Awake and alert, GCS 15, oriented to person, place, time, and situation. Motor strength 5/5 in all extremities. Sensory grossly intact. Vital Signs: 10:05 BP 154 / 101; Pulse 104; Resp 18 S; Temp 98.9(O); Pulse Ox 98% on R/A; Weight 113.4 kg aa5 (R); Height 5 ft. 3 in. (R); 10:05 Body Mass Index 44.29 (113.40 kg, 160.02 cm) - Percentile 98.9 % aa5 MDM: 10:05 Patient medically screened. sb4 10:09 Differential diagnosis: covid, flu, strep, URI. sb4 10:47 Data reviewed: vital signs, nurses notes, lab test result(s), and as a result, I will sb4 discharge patient. Counseling: I had a detailed discussion with the patient and/or guardian regarding the historical points, exam findings, and any diagnostic results supporting the discharge/admit diagnosis, lab results, to return to the emergency department if symptoms worsen or persist or if there are any questions or concerns that arise at home. 04/12 10:09 Order name: Strep sb4 04/12 10:09 Order name: SARS RAPID; Complete Time: 10:48 sb4 04/12 10:09 Order name: Flu; Complete Time: 10:52 sb4 04/12 10:55 Order name: Throat Culture EDMS Administered Medications: No medications were administered Disposition: 12:54 Co-signature as Attending Physician, Harjinder Anderson MD I reviewed the patient's care rt provided by the Advanced Practice Provider and agree with the diagnosis and treatment plan. Disposition Summary: 04/12/23 10:52 Discharge Ordered Notes: Location: Home sb4 Problem: new sb4 Symptoms: are unchanged sb4 Condition: Stable sb4 Diagnosis - SARS-associated coronavirus as the cause of diseases classified elsewhere sb4 Followup: sb4 - With: Emergency Department - When: As needed - Reason: Trouble breathing, Worsening of condition Discharge Instructions: - Discharge Summary Sheet sb4 - 10 Things You Can Do to Manage Your COVID-19 Symptoms at Home - [facility] (09/28/2020) sb4 - COVID-19: Keep Your Baby Healthy and Safe - [facility] (02/15/2021) sb4 - Caring for Your Baby If You Have COVID-19 - [facility] (04/08/2021) sb4 - COVID-19: What to Do If You Are Sick - [facility] (06/04/2021) sb4 Forms: - Work release form eb - Medication Reconciliation Form sb4 - Thank You Letter sb4 - Antibiotic Education sb4 - Prescription Opioid Use sb4 - Patient Portal Instructions sb4 - Leadership Thank You Letter sb4 Prescriptions: - Paxlovid 300 mg (150 mg x 2)-100 mg Oral Tablet, Dose Pack - take 1 dose pack ORAL route per package directions; 1 Pack; Refills: 0, Product sb4 Selection Permitted Signatures: Dispatcher [employer] EDCaroline Ayala, RN RN [email or web address] Ana Maria Keyes PA-C PAJaz sb4 Harjinder Anderson MD MD rt
--- NOTE | 2023-04-12 10:52 | ER ---
Nurse's Notes [facility] Name: Bella Foley Age: 17 yrs Sex: Female : 2005 Arrival Date: 04/12/2023 Time: 10:03 Bed 20 Private MD: Diagnosis: SARS-associated coronavirus as the cause of diseases classified elsewhere Presentation: 04/12 10:05 Chief complaint: Patient states: "I woke up with diarrhea, runny nose, and just feel aa5 really tired since around 4am". 10:05 Coronavirus screen: diarrhea, runny nose. Ebola Screen: Patient denies travel to an [facility] Ebola-affected area in the 21 days before illness onset. Initial Sepsis Screen: Does the patient meet any 2 criteria? HR > 90 bpm. Does the patient have a suspected source of infection? No. Patient's initial sepsis screen is negative. Risk Assessment: Do you want to hurt yourself or someone else? Patient reports no desire to harm self or others. Onset of symptoms was March 2023. 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 - Social history:: Smoking status: Patient denies any tobacco usage or history of. Screenin:[address] [facility] ED Fall Risk Assessment (Adult) Score/Fall Risk Level 0 - 2 = Low Risk hb Oriented to surroundings, Maintained a safe environment, Educated pt \\T\\ family on fall prevention, incl call for assistance when getting out of bed. Abuse screen: Denies threats or abuse. Denies injuries from another. Nutritional screening: No deficits noted. Tuberculosis screening: No symptoms or risk factors identified. Assessment: 10:24 General: Appears in no apparent distress. Behavior is calm, cooperative. Pain: Pain hb currently is 3 out of 10 on a pain scale. Neuro: Level of Consciousness is awake, alert, obeys commands, Oriented to person, place, time, situation. Cardiovascular: Patient's skin is warm and dry. Respiratory: Reports cough that is Respiratory effort is even, unlabored, Respiratory pattern is regular, symmetrical. GI: No signs and/or symptoms were reported involving the gastrointestinal system. : No signs and/or symptoms were reported regarding the genitourinary system. EENT: Reports sore throat, sinus congestion. Derm: Skin is pink, warm \\T\\ dry. Musculoskeletal: Reports body aches. Vital Signs: 10:05 BP 154 / 101; Pulse 104; Resp 18 S; Temp 98.9(O); Pulse Ox 98% on R/A; Weight 113.4 kg aa5 (R); Height 5 ft. 3 in. (R); 10:05 Body Mass Index 44.29 (113.40 kg, 160.02 cm) - Percentile 98.9 % aa5 ED Course: 10:04 Patient arrived in ED. rg4 10:05 Ana [facility] Keyes [facility]. sb4 10:05 Harjinder Anderson MD is Attending Physician. sb4 10:05 Arm band placed on Patient placed in an exam room, on a stretcher. aa5 10:14 Triage completed. aa5 10:24 Fanta Bazan, RN is Primary Nurse. hb 10:24 Patient has correct armband on for positive identification. Provided Education on: hb tests, result times, . 10:24 Strep Sent. hb 10:24 Flu Sent. hb 10:24 SARS RAPID Sent. hb 10:24 No provider procedures requiring assistance completed. Patient did not have IV access hb during this emergency room visit. Administered Medications: No medications were administered Medication: 10:24 VIS not applicable for this client. hb Outcome: 10:52 Discharge ordered by . sb4 11:20 Discharged to home ambulatory, hb 11:20 Condition: stable 11:20 Discharge instructions given to patient, Instructed on discharge instructions, follow up and referral plans. medication usage, Demonstrated understanding of instructions, follow-up care, medications, Prescriptions given X 1, 11:20 Patient left the ED. hb Signatures: Caroline Price RN RN aa5 Fanta Bazan RN RN Evangelina Mcclain rg4 Ana Maria Keyes PA-C PA-C sb4
[2023-04-12 13:34] VITALS: BP 154/101; TEMP 98.9; O2SAT 98
== END ==
LOC: ER 10:03
DX: U07.1 COVID-19 (principal)
CPT/HCPCS: 36415; 87070; 87081; 87804; 87811